=== PATIENT | female | born 1955 | race African-American/Black ===

== ENCOUNTER → 2020-12-17 13:26 | Outpatient (BNVA) | payer MEDICARE, MEDICAID, SELFPAY | PROVIDERS: PCP Family Medicine; Visit Provider Student in an Organized Health Care Education/Training Program | CPT/HCPCS: Q3014 ==

== ENCOUNTER → 2022-07-22 14:33 | Outpatient (BNVA) | payer OTHER, MEDICAID, SELFPAY | PROVIDERS: PCP Hospitalist; Visit Provider Student in an Organized Health Care Education/Training Program | DX: M79.7 Fibromyalgia (principal); E11.22 Type 2 diabetes mellitus with diabetic chronic kidney disease; N18.30 Chronic kidney disease, stage 3 unspecified; Z79.899 Other long term (current) drug therapy | CPT/HCPCS: 99202 ==

== ENCOUNTER 2022-08-11 08:46 | Outpatient (REF) | payer OTHER, SELFPAY ==
--- NOTE | ~2022-08-11 | FL_ITS ---
EXAMINATION: FL BARIUM SWALLOW CLINICAL INFORMATION: Dysphasia. COMPARISON: None available. TECHNIQUE: Barium swallow examination is performed using fluoroscopic evaluation in addition to multiple fluoroscopic spot views. The patient is imaged both upright and prone and using both thick and thin sulfate and half-inch diameter barium tablet along with effervescent granules. Fluoroscopy time: 2 minutes. DAP: 9.962 Gycm2. FINDINGS: No nasopharyngeal reflux or tracheal aspiration was present. There is cricopharyngeal hypertrophy present without evidence of Zenker's diverticulum. The esophagus demonstrated normal distensibility without persistent stricture. No mucosal abnormality was appreciated. No hiatal hernia was noted. No gastroesophageal reflux was seen during the study including with water siphon test. There was some hypomotility present. Clips from previous thyroid surgery present. FL/FL barium swallow IMPRESSION: Esophageal hypomotility. Cricopharyngeal hypertrophy. No hiatal hernia or gastroesophageal reflux elicited.
== END 2022-08-11 08:47 | disposition home or self-care (01) ==
LOC: HO.XRAY 08:46
PROVIDERS: PCP Hospitalist; Visit Provider Hospitalist
DX: R13.10 Dysphagia, unspecified (principal)
CPT/HCPCS: 74220

== ENCOUNTER 2022-09-14 08:08 | Day surgery (SDC) | payer OTHER, MEDICAID, SELFPAY ==
--- NOTE | 2022-09-13 13:57 | P.CONAN_ITS ---
HPI - Anesthesia Eval Consult details Narrative: 67yo F for Upper Endoscopy w/ balloon dilation and Colonoscopy PMFSH Active Problems Active Problems: All Active Problems (Updated 07/22/22 @ 15:13 by Carolann Metzger MD) Fibromyalgia (Acute) Past Medical History Medical History Calcaneal spur of both feet Chronic kidney disease, stage 3 Depression with anxiety Diabetes High cholesterol Migraines Morbid obesity Osteoarthritis of feet, bilateral Family History Family History Mother Osteoarthritis Rheumatoid arthritis Surgical History Surgical History History of appendectomy History of section Social History Social History Household Members: Children and Other Household Members Other:: grandson Alcohol intake: never Patient Tobacco Use Status: Never used Tobacco Use of substances other than those prescribed or required for medical reasons: No Are you DNR?: No Advance Directives: No Advance Directives Information Provided: Yes Current occupational status: employed Current occupation: [employer] Meds Allergies Allergy/AdvReac Type Severity Reaction Status Date / Time aspirin Allergy Intermediate rash Verified 09/14/22 08:50 gabapentin Allergy Intermediate rash Verified 09/14/22 08:50 oxycodone [Percodan] Allergy Intermediate rash Verified 09/14/22 08:50 sulfur Allergy Unknown rash Verified 09/14/22 08:50 Home Medications Medication Instructions Recorded Confirmed Last Taken Type topiramate 100 mg tablet (Topamax) 100 mg PO BEDTIME 01/05/21 09/14/22 Unknown History amitriptyline 50 mg tablet 50 mg PO DAILY 07/22/22 09/14/22 Unknown History cholecalciferol (vitamin D3) 25 25 mcg PO DAILY 07/22/22 09/14/22 Unknown History mcg (1,000 unit) tablet dulaglutide 0.75 mg/0.5 mL 0.75 mg subcut QWEEK 07/22/22 09/14/22 Unknown History subcutaneous pen injector (Trulicity) insulin glargine 100 unit/mL (3 40 unit subcut BID 07/22/22 09/14/22 Unknown History mL) subcutaneous pen (Basaglar KwikPen U-100 Insulin) potassium citrate 15 mEq (1,620 15 meq PO BID 07/22/22 09/14/22 Unknown History mg) tablet,extended release pravastatin 40 mg tablet 40 mg PO DAILY 07/22/22 09/14/22 Unknown History sumatriptan succinate 100 mg tablet 100 mg PO Q2-4H PRN Migraine 07/22/22 09/14/22 Unknown History Headache zolpidem 10 mg tablet (Ambien) 10 mg PO BEDTIME PRN Insomnia 07/22/22 09/14/22 Unknown History hydroxyzine HCl 25 mg tablet 25 mg PO BEDTIME PRN Anxiety 09/14/22 09/14/22 Unknown History topiramate 50 mg tablet 50 mg PO DAILY 09/14/22 09/14/22 Unknown History Exam Exam Date and Time: September 13, 2022 586 Assessment and Plan Assessment Anesthesia Assessment: Chart Reviewed
[2022-09-14 08:57] LABS: Prothrombin Time 11.6 SEC (10.0-13.1)
[2022-09-14 09:02] VITALS: BMI 39.7
[2022-09-14 09:07] LABS: Anion Gap 12 (12-20); Blood Urea Nitrogen 8 mg/dL (9-16); Calcium 9.8 mg/dL (8.4-10.2); Carbon Dioxide 23 mmol/L (22-29); Chloride 109 mmol/L (96-108); Estimated Glomerular Filt Rate 29; Glucose Fasting 102 mg/dL (60-99); Potassium 3.7 mmol/L (3.3-5.1); Sodium 140 mmol/L (135-145)
[2022-09-14 09:45] VITALS: BP 143/77; PULSE 84; RESP 15; TEMP 36.6; O2SAT 97
[2022-09-14 09:47] LABS: Glucose, Whole Blood 92 mg/dL (60-115)
[2022-09-14] MEDS: Lactated Ringers 1,000 ML 100 ML IVCONT (10:37)
[2022-09-14 11:38] VITALS: BP 98/58; PULSE 89; RESP 16; TEMP 36.2; O2SAT 100
--- NOTE | 2022-09-14 11:40 | P.BOP_ITS ---
Brief Operative Note Date of Service: 09/14/22 Pre-op diagnosis: Dysphagia, Screening Post-op diagnosis: other (GERD, Hiatal hernia, Diverticulosis) Procedure: EGD with Balloon Dilation 19 to 20mm and biopsies, Colonoscopy to the cecum Surgeon: Iban Damon Anesthesia: MAC Was an Billing Customer Service Representative used for this Procedure?: No Estimated blood loss (mL): 2.0 Pathology: other (A. EG Junction at 35cm B. Esophagus 20-25cm) Condition: stable Disposition: PACU
[2022-09-14 11:53] VITALS: BP 99/73; PULSE 77; RESP 14; TEMP 36.2; O2SAT 98
[2022-09-14 12:01] LABS: Glucose, Whole Blood 90 mg/dL (60-115)
[2022-09-14 12:07] VITALS: BP 131/80; PULSE 75; RESP 18; TEMP 36.1; O2SAT 98
--- NOTE | 2022-09-14 12:37 | OP_ITS ---
DATE OF SERVICE: 09/14/2022 SURGEON: Iban Damon MD INDICATIONS: The patient presents for evaluation of intermittent dysphagia and colorectal cancer screening. Full consent has been obtained from her for this, including risks of bleeding and perforation. PREOPERATIVE DIAGNOSIS: Dysphagia and colorectal cancer screening. POSTOPERATIVE DIAGNOSIS: PROCEDURE PERFORMED: Esophagogastroduodenoscopy with balloon dilation and biopsies, and colonoscopy to the cecum. ESTIMATED BLOOD LOSS: COMPLICATIONS: ANESTHESIA: Monitored anesthesia care. ASSISTANTS: SPECIMENS: POSTOPERATIVE DIAGNOSES: Dysphagia and colorectal cancer screening, hiatal hernia, gastroesophageal reflux, rule out eosinophilic esophagitis, diverticulosis, and internal hemorrhoids. DESCRIPTION OF PROCEDURE: The patient was placed in the left lateral decubitus position. The Olympus video gastroscope was passed in the posterior oropharynx and upper esophagus under direct vision. The scope was passed slowly to the distal esophagus. The gastroesophageal junction appeared at 35 cm. There were some slight areas of irregularity and some edema, but no evidence of any gross esophagitis, Aldridge's esophagus, stricture, nor ulceration. The scope entered the stomach easily. There was a small hiatal hernia. The scope was advanced to the pylorus and the duodenum was cannulated to the descending portion. The duodenum including the bulb appeared normal without mass or ulceration. The scope was withdrawn back to the stomach. The gastric antrum and body appeared normal with good peristalsis. The scope was retroflexed visualizing the proximal stomach carefully, which appeared normal, without any sign of mass or ulceration. The scope was straightened. The scope was withdrawn back in the esophagus. Given her symptomatology, I did use a [employer] incremental balloon to dilate the gastroesophageal junction from 19 mm to 20 mm at the recommended pressure for 60 seconds each. Post-dilation, there was some minimal heme noted but no obvious disruption of the gastroesophageal junction. Biopsies were also obtained at the gastroesophageal junction at 35 cm. Proximal to this, the esophageal mucosa appeared normal. The esophagus itself did appear to have some diminished peristalsis and some minimal amount of retained fluid. There was no evidence of any proximal esophageal disease. Biopsies were obtained between 20 and 25 cm. The scope was withdrawn from the patient. She was turned around for the colonoscopy. The digital rectal exam revealed no abnormalities. The Olympus video pediatric colonoscope was entered into the rectum and advanced easily to the cecum. Once in the cecum, I did identify normal-appearing cecal pouch with appendiceal orifice and a normal-appearing ileocecal valve. The entire cecum and ileocecal valve appeared normal. The scope was then slowly withdrawn assessing all mucosal surfaces carefully. Preparation was excellent after some irrigation and suctioning. I did not visualize any sign of polyps, colitis, or angiodysplasia. There was a mild amount of sigmoid diverticulosis. In the rectum, scope was retroflexed visualizing internal hemorrhoids, but no other pathology. The rectal mucosa appeared normal. Scope was straightened and withdrawn from the patient. She tolerated both procedures well, and was returned to recovery area in stable condition. IMPRESSION: 1. Hiatal hernia, gastroesophageal reflux. 2. Rule out eosinophilic esophagitis. 3. Status post balloon dilation of gastroesophageal junction. 4. Diverticulosis. 5. Internal hemorrhoids. PLAN: The results of the biopsies will be checked. Given her symptomatology, I shall start her on omeprazole 20 mg daily for at least a couple of months to see if that helps with her swallowing. Depending upon her clinical course, she may need further evaluation with an esophageal motility study. I would recommend a repeat colonoscopy in 10 years as well. She was advised to see me in the Fall for a followup visit. MD JOSR Rodriguez/DALILA / [id number] MTDD
== END 2022-09-14 12:50 | disposition home or self-care (01) ==
PROVIDERS: Nurse Practitioner; PCP Hospitalist; Visit Provider Internal Medicine
PROC: (CPT 45378; principal; 2022-09-14 09:30)
DX: Z12.11 Encounter for screening for malignant neoplasm of colon (principal); K57.30 Diverticulosis of large intestine without perforation or abscess without bleeding; K64.8 Other hemorrhoids; R13.19 Other dysphagia; K21.9 Gastro-esophageal reflux disease without esophagitis; K44.9 Diaphragmatic hernia without obstruction or gangrene; E78.00 Pure hypercholesterolemia, unspecified; M79.7 Fibromyalgia; F41.8 Other specified anxiety disorders; M19.072 Primary osteoarthritis, left ankle and foot; M19.071 Primary osteoarthritis, right ankle and foot; E11.22 Type 2 diabetes mellitus with diabetic chronic kidney disease; N18.30 Chronic kidney disease, stage 3 unspecified; Z79.4 Long term (current) use of insulin; Z79.899 Other long term (current) drug therapy; Z88.2 Allergy status to sulfonamides; Z88.8 Allergy status to other drugs, medicaments and biological substances
CPT/HCPCS: 45378; 43249; 43239; 36415; 80048; 82947; 85610; 88305; 88312; C1726

== ENCOUNTER 2023-05-12 09:22 | Outpatient (REF) | payer OTHER, SELFPAY ==
--- NOTE | ~2023-05-12 | FL_ITS ---
EXAMINATION: XR FLUOROSCOPY UPPER GI WITH AIR CLINICAL INFORMATION: Dysphagia epigastric pain COMPARISON: Barium swallow 08/2022 TECHNIQUE: Fluoroscopic air contrast upper GI examination was performed utilizing standard techniques with thin and thick barium and effervescent granules. Numerous spot images were obtained. FINDINGS: Lateral cine images of the oropharynx and hypopharynx demonstrate normal swallow mechanism with normal epiglottic inversion and soft palate elevation. No tracheal penetration, glottic or subglottic aspiration identified. No nasopharyngeal reflux present. Hypopharyngeal structures appear normal without evidence of mass or diverticulum. 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 Dual and single contrast images of the esophagus demonstrate normal caliber, contour, and mucosal pattern. No evidence of stricture, mass, or ulcerations identified. There is to and fro motion of the barium column with mild nonpropulsive tertiary contractions noted in the mid and distal esophagus. The patient swallowed the 13 mm barium tablet without any issue. The tablet passed into the stomach without any issue. No evidence of hiatus hernia identified. No significant gastroesophageal reflux was seen during the course of the examination and on reflux views. Dual contrast and single contrast images of the stomach demonstrated normal contour. The mucosal folds appear mildly thickened, likely due to gastritis. There is no evidence of mass, ulceration, or other abnormality. Contrast freely passed into the gastric antrum and duodenal bulb without delay. Single and air-contrast images of the duodenal bulb demonstrate no abnormality. The duodenal sweep has a normal appearance, course, and mucosal fold appearance. No malrotation. The imaged proximal jejunum has a normal fold pattern and caliber. Surgical clips noted in the thyroid region. FLUOROSCOPY TIME: 3 minutes 43 seconds Number of Spot Images: 8 Number of Cine: 14 DOSE AREA PRODUCT: [id number] FL/FL barium swallow IMPRESSION: 1. 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 2. Esophageal dysmotility. 3. Mildly thickened gastric mucosal folds, likely due to gastritis. 4. 13 mm barium tablet passed without delay into the stomach. This procedure was performed by Gino Good PA-C, and supervised by Dr. Gutierrez
== END 2023-05-12 09:23 | disposition home or self-care (01) ==
LOC: HO.XRAY 09:22
PROVIDERS: Visit Provider Internal Medicine
DX: R13.19 Other dysphagia (principal)
CPT/HCPCS: 74220

== ENCOUNTER → 2023-05-12 09:24 | Outpatient (BNV) | payer OTHER, SELFPAY | PROVIDERS: Visit Provider Radiology Diagnostic Radiology | DX: R13.10 Dysphagia, unspecified (principal); R10.13 Epigastric pain | CPT/HCPCS: 74221 ==

== ENCOUNTER 2024-05-21 09:27 | Outpatient (REF) | payer OTHER, MEDICAID, SELFPAY ==
--- OUTSIDE RECORDS SUMMARY | 2024-05-21 10:33 | XMS_ITS | Clinical Summary ---
Author Organization [facility] Address [address] [place] [phone] Phone Care Team Providers Care Supervisor [employer] Name Role Phone Diego Dacosta MD Primary Care Provider [phone] Allergies Active Allergy Reactions Criticality Noted Date Comments Aspirin Other (see comments) 07/23/2020 Medications DULoxetine HCl 60 MG Capsule Delayed Release Sprinkle Take 1 capsule by mouth 1 (one) time each day Active ZOLPIDEM TARTRATE ER PO Take 10 mg by mouth at night if needed Do not crush, chew, or split. Active albuterol HFA (PROVENTIL HFA;VENTOLIN HFA) 108 (90 Base) MCG/ACT inhaler Inhale 2 puffs every 6 (six) hours if needed for wheezing Active cycloSPORINE (RESTASIS) 0.05 % ophthalmic emulsion 1 drop 2 (two) times a day Active SUMAtriptan (IMITREX) 100 MG tablet Take 100 mg by mouth 1 (one) time if needed for migraine Active ondansetron (ZOFRAN) 8 MG tablet Take by mouth every 8 (eight) hours if needed for nausea or vomiting Active LORazepam (ATIVAN) 0.5 MG tablet Take 0.5 mg by mouth every 6 (six) hours if needed for anxiety Active pravastatin (PRAVACHOL) 40 MG tablet Take 1 tablet (40 mg total) by mouth 1 (one) time each day 30 tablet 2 Active Basaglar KwikPen 100 UNIT/ML injection 40 Units 1 (one) time each day 2 Active topiramate (TOPAMAX) 100 MG tablet TAKE 1 TABLET BY MOUTH IN THE MORNING AND 2 TABLETS AT BEDTIME 3 Active pantoprazole (PROTONIX) 20 MG EC tablet Take 1 tablet by mouth 1 (one) time each day 3 Active hydrOXYzine (ATARAX) 25 MG tablet Take 25 mg by mouth at night if needed 3 Active fluticasone (FLONASE) 50 MCG/ACT nasal spray INSTILL 1 SPRAY INTO EACH NOSTRIL EVERY DAY FOR 30 DAYS 3 Active Trulicity 0.75 MG/0.5ML solution pen-injector INJECT 1 PEN SUBCUTANEOUS WEEKLY DIRECTED FOR 30 DAYS 3 Active D-1000 Extra Strength 25 MCG (1000 UT) tablet Take 1,000 Units by mouth 1 (one) time each day 3 Active amLODIPine (NORVASC) 2.5 MG tablet Take 2.5 mg by mouth 1 (one) time each day For 30 days 3 Active amitriptyline (ELAVIL) 50 MG tablet Take 100 mg by mouth every night 3 Active hydroCHLOROthia zide 12.5 MG tablet TAKE 1 TABLET BY MOUTH ONCE DAILY 90 tablet 5 3 Active Potassium Citrate ER 15 MEQ (1620 MG) tablet controlled-rele ase TAKE 1 TABLET BY MOUTH 1 TIME EACH DAY. 90 tablet 1 5 Active Active Problems Problem Noted Date Diagnosed Date Stage 3a chronic kidney disease 07/23/2020 Hyperparathyroidism 07/23/2020 Renal stone 07/23/2020 Encounters Date Type Department Care Team Description 04/26/2024 Orders Only [facility] [address] [facility] [address] [place] [address] Dano Lucas MD Stage 3b chronic kidney disease (HCC) 04/11/2024 Refill [facility] [address] [place] [address] Dano Lucas MD 03/29/2024 9:15 AM EST Office Visit [facility] [address] [facility] [address] [place] [address] Dano Lucas MD Stage 3b chronic kidney disease (HCC) (Primary Dx) 03/29/2024 Orders Only [facility] [address] [facility] [address] [place] [phone] Dano Lucas MD 03/29/2024 Orders Only [facility] [address] [facility] [address] [place] [address] Dano Lucas MD Stage 3b chronic kidney disease (HCC) 03/01/2024 Orders Only [facility] [address] [facility] [address] [place] [phone] Dano Lucas MD Stage 3b chronic kidney disease (HCC) from Last 3 Months Family History Medical History Relation Comments Heart disease Mother Hypertension Mother Relation Status Comments Father Alive Mother Social History Tobacco Use Types Packs/Day Years Used Date Smoking Tobacco: Never Smokeless Tobacco: Never Tobacco Cessation:Counseling Given: Not Answered Alcohol Use Standard Drinks/Week Comments No 0 (1 standard drink = 0.6 oz pur e alcohol) Comments Unknown Sex and Gender Information Value Date Recorded Sex Assigned at Not on file Legal Sex Female 5:23 PM EST Gender Identity Not on file Sexual Orientation Not on file Last Filed Vital Signs Vital Sign Reading Time Taken Comments Blood Pressure 130/84 03/29/2024 8:59 AM EST Pulse 78 03/29/2024 8:59 AM EST Temperature - - Respiratory Rate - - Oxygen Saturation 98% 03/29/2024 8:59 AM EST Inhaled Oxygen Concentration - - Weight 90.9 kg (200 lb 6.4 oz) 03/29/2024 8:59 A M EST Height 152.4 cm (5') 07/04/2019 12:00 PM EDT Body Mass Index 39.14 07/04/2019 12:00 PM EDT Plan of Treatment Upcoming Encounters Date Type Department Care Team (Late st Contact Info) Description 09/24/2024 10:45 AM EDT Office Visit [facility] [address] [phone] Dano Lucas MD [address] [phone] Health Maintenance Due Date Last Done Comments Breast Cancer Screening 1955 Pneumococcal Vaccine: 65+ Years (1 of 2 - PCV) 963 Colorectal Cancer Screening: Annual FOBT 2005 Colorectal Cancer Screening: Colonoscopy 2005 Colorectal Cancer Screening: Sigmoidoscopy 2005 Hepatitis B Vaccine (1 of 3 - Risk 3-dose series) 04/2016 Influenza Vaccine (#1) 2023 Diabetes: Hemoglobin A1C 12/19/2023 05/21/2021 Diabetes: Ophthalmology Exam 12/19/2023 Diabetes: Pedal Pulse Checked 12/19/2023 Diabetes: Sensory Foot Exam 12/19/2023 Diabetes: Visual Foot Exam 12/19/2023 Procedures Procedure Name Priority Date/Time Associated Diagnosis Comments MAGNESIUM Routine 03/29/2024 10:15 AM EST PROTEIN / CREATININE RATIO, URINE Routine 03/29/2024 10:15 AM EST URINALYSIS WITH MICROSCOPIC Routine 03/29/2024 10:15 AM EST MICROSCOPIC EXAMINATION - DO NOT USE Routine 03/29/2024 10:15 AM EST EXT RESULT ENTRY Routine 05/21/2021 from Last 3 Months or Most Recently Relevant to Health Maintenance Results * (ABNORMAL) Microscopic Examination (03/29/2024 10:15 AM EST) WBC, Urine >30(A) 0 - 5 /hpf [facility] RBC, Urine None seen 0 - 2 /hpf [facility] Squamous Epithelial, Urine 0-10 0 - 10 /hpf [facility] Casts None seen None seen /lpf [facility] Bacteria, Urine Many(A) None seen/Few [facility] 03/29/2024 10:1 5 AM EST 03/29/2024 Dano Lucas MD LAB MICROBIOLOGY - GE NERAL ORDERABLES Final Result Performing Organization Address City/[facility]/ZIP Co de Phone Number [facility] [address] [place] [address] * Protein, Total, Random Urine w/Creatinine (Protein/Creat Ratio) (03/29/2024 10:15 AM EST) Pathologist [facility] Creatinine, Ur 241.6 Not Estab. mg/dL [facility] Protein, Ur 29.3 Not Estab. mg/dL [facility] Urine Protein/Creatin ine Ratio 121 0 - 200 mg/g creat [facility] 03/29/2024 10:1 5 AM EST 03/29/2024 Dano Lucas MD LAB URINE ORDERABLES Final Result Performing Organization Address City/[facility]/ZIP Co de Phone Number [facility] [address] [place] [address] * (ABNORMAL) Urinalysis with microscopic (03/29/2024 10:15 AM EST) Specific [place], Urine 1.021 1.005 - 1.030 [facility] pH Urine 5.5 5.0 - 7.5 [facility] Color, Urine Yellow Yellow [facility] [phone] Appearance Urine Cloudy(A) Clear [facility] [place] WBC Esterase Urine 3+(A) Negative [facility] [phone] Protein, Ur 1+(A) Negative/Tr luis [facility] Glucose, Ur Negative Negative [facility] Ketones, Urine Trace(A) Negative [facility] [place] [phone] Blood Urine Trace(A) Negative [facility] Bilirubin Urine Negative Negative [facility] [place] Urobilinogen Urine 0.2 0.2 - 1.0 mg/dL [facility] [phone] Nitrite, Urine Positive(A) Negative [facility] [place] Microscopic Examination See below: [facility] [phone] Comment:Microscopic was alize cated and was performed. 03/29/2024 10:1 5 AM EST 03/29/2024 Dano Lucas MD LAB URINE ORDERABLES Final Result Performing Organization Address City/[facility]/ZIP Co de Phone Number [facility] [place] [address] [place] [address] * Magnesium (03/29/2024 10:15 AM EST) Magnesium 1.7 1.6 - 2.3 mg/dL [facility] [place] 03/29/2024 10:1 5 AM EST 03/29/2024 Dano Lucas MD LAB BLOOD ORDERABLES Final Result Performing Organization Address City/[facility]/ZIP Co de Phone Number [facility] [address] [place] [address] * (ABNORMAL) EXT RESULT ENTRY (05/21/2021) ALT (SGPT) 9 U/L AST (SGOT) 12 U/L Hemoglobin A1C 8.2(A) 4.0 - 6.0 Triglycerides 138 40 - 160 Cholesterol 198 0 - 200 HDL 56 35 - 70 MG/DL LDL Calculated 114 0 - 160 mg/dL 05/21/2021 us Historical Provider LAB BLOOD ORDERABLES Yu l Result from Last 3 Months or Most Recently Relevant to Health Maintenance Care Teams Supervisor [employer] Relationship Specialty Start Date End Date Diego Dacosta MD [address] [place] [phone] PCP - General Internal Medicine 12/06/21
--- OUTSIDE RECORDS SUMMARY | 2024-05-21 10:33 | XMS_ITS ---
Author Organization [facility] Address [address] [place] [phone] Care Team Providers Care Product Manager Financial Services Name Role Phone DOREEN ANGELES Primary Care Provider Iban Hilliard [phone] ALLERGIES Allergen (clinical drug ingredient) Drug/Non Drug Allergy documented on EMR Reaction Allergy Type Onset Date Status Substance with sulfonamide structure and antibacterial mechanism of action (substance) Sulfa Antibiotics Unknown Drug Allergy Active prednisone Prednisone Unknown Drug Allergy Activ e aspirin Aspirin Unknown Drug Allergy Active REASON FOR VISIT Patient presents today for DYSPHAGIA MEDICATIONS Medication SIG (Take, Route, Frequency, Duration) Notes Start Date End Date Status Basaglar KwikPen 100 UNIT/ML INJECT 40 UNITS UNDER THE SKIN ONCE A DAY subcutaneous every day Active Omeprazole 20 MG TAKE 1 CAPSULE BY MO UTH EVERY MORNING. for 90 Active Folic Acid Active hydrOXYzine HCl 25 MG Oral for 90 Active SUMAtriptan Succinate 100 MG Oral for 30 Active D-1000 Extra Strength 25 MCG (1000 UT) TAKE 1 TABLET BY MOUTH EVERY DAY Oral for 90 Active Trulicity 0.75 MG/0.5ML DIRECTED SUBC UTANEOUS WEEKLY 30 DAYS Subcutaneous for 30 Active Amitriptyline HCl 50 MG Oral for 90 Active Topiramate 100 MG Oral for 90 Active Pravastatin Sodium 40 MG TAKE 1 TABLET B Y MOUTH EVERY DAY Oral for 90 Active Potassium Citrate ER 15 MEQ (1620 MG) Oral for 30 Active IMMUNIZATIONS Vaccine Route Administration Date Status Comme nts Influenza Unknown 08/23/2023 Refused SOCIAL HISTORY Tobacco Use: Social History Observation Description Date Details (start date - stop date) Never Smoker NA - NA Sex Assigned At : Social History Observation Description Sex Assigned At Unknown Tobacco Use/Smoking Question Answer Notes Patient is a nonsmoker Alcohol Screen Question Answer Notes Did you have a drink containing alcohol in the p ast year? No Points 0 Interpretation Negative VITAL SIGNS BMI 37.69 kg/m2 08/23/2023 Blood pressure systolic 000 mm Hg 08/23/19 24 Blood pressure diastolic 00 mm Hg 024 Height 61 in 08/23/2023 Temperature 98.4 degrees Fahrenheit 08/23/19 24 Weight 199 lb 8 oz lbs 08/23/2023 Encounters Encounter Location Date Provider Diagnosis [facility] [address] [place] [address] 08/23/2023 Iban Damon Screening for colon cancer Z12.11 and Esophageal dysphagia R13.19 ASSESSMENTS Encounter Date Diagnosis Assessment Notes Treatment Notes Treatment Clinical Notes 08/23/2023 Screening for colon cancer (ICD-10 - Z12.11) Repeat colonoscopy in 203208/23/2023 Esophageal dysphagia (ICD-10 - R13.19) Continue omeprazole 08/23/2023 Other You can add ernesto e daily Metamucil or other fiber to your daily regimen to see if that help with the BM's. PLAN OF TREATMENT Treatment Notes Assessment Notes Screening for colon cancer Repeat colono scopy in 2032 Esophageal dysphagia Continue omeprazole Other You can add some maximus ly Metamucil or other fiber to your daily regimen to see if that help with the BM's. Next Appt Details Follow Up: prn, Reason: Progress Notes * Examination Category Sub-Category Detail Notes General Examination GENERAL APPEARANCE: pleasant , well nourished, well developed, in no acute distress HEAD: EYES: sclera non-icteric EARS: NOSE: THROAT: NECK/THYROID: no cervical lymphade nopathy, neck supple HEART: S1, S2 normal CHEST: LUNGS: clear to auscultatio n bilaterally ABDOMEN: normal bowel sounds, no guarding or rigidity, no guarding or rigidity, no masses palpable, soft, nontender, nondistended NEUROLOGIC: alert and oriented SKIN: nonjaundiced, no spi augustine angiomata EXTREMITIES: no edema PERIPHERAL PULSES: BACK: BREASTS: MUSCULOSKELETAL: MALE GENITOURINARY: LYMPH NODES: RECTAL EXAM: FEMALE GENITOURINARY: ORAL CAVITY: mucosa moist
--- OUTSIDE RECORDS SUMMARY | 2024-05-21 10:33 | XMS_ITS | Encounter Summary ---
Author Organization [facility] Address [address] [facility] [address] [place] [address] Phone Care Team Providers Care Kosher Dietary Service Manager Name Role Phone Diego Dacosta MD Primary Care Provider [phone] Encounter Details Date Type Department Care Team (Late Contact Info) Description 04/26/2024 Orders Only [facility] [address] [facility] [address] [place] [address] Dano Lucas MD [facility] [address] Stage 3b chronic kidney disease (HCC) Social History Tobacco Use Types Packs/Day Years Used Date Smoking Tobacco: Never Smokeless Tobacco: Never Alcohol Use Standard Drinks/Week Comments No 0 (1 standard drink = 0.6 oz pur e alcohol) Comments Unknown Sex and Gender Information Value Date Recorded Sex Assigned at Not on file Legal Sex Female 5:23 PM EST Gender Identity Not on file Sexual Orientation Not on file documented as of this encounter Plan of Treatment Upcoming Encounters Date Type Department Care Team (Late st Contact Info) Description 09/24/2024 10:45 AM EDT Office Visit [facility] [address] [address] Dano Lucas MD [address] [address] documented as of this encounter Visit Diagnoses Diagnosis Stage 3b chronic kidney disease (HCC) documented in this encounter Care Teams Kosher Dietary Service Manager Relationship Specialty Start Date End Date Diego Dacosta MD [address] [place] [id number] PCP - General Internal Medicine 12/06/21 documented as of this encounter
--- OUTSIDE RECORDS SUMMARY | 2024-05-21 10:33 | XMS_ITS | Patient Health Record ---
Author Organization [facility] Address [address] [place] [phone] Care Team Providers Care Designer Writer Name Role Phone DOREEN ANGELES Primary Care Provider Iban Hilliard [phone] ALLERGIES Allergen (clinical drug ingredient) Drug/Non Drug Allergy documented on EMR Reaction Allergy Type Onset Date Status Substance with sulfonamide structure and antibacterial mechanism of action (substance) Sulfa Antibiotics Unknown Drug Allergy Active prednisone Prednisone Unknown Drug Allergy Activ e aspirin Aspirin Unknown Drug Allergy Active REASON FOR REFERRAL No Information MEDICATIONS Medication SIG (Take, Route, Frequency, Duration) Notes Start Date End Date Status Basaglar KwikPen 100 UNIT/ML INJECT 40 UNITS UNDER THE SKIN ONCE A DAY subcutaneous every day Active D-1000 Extra Strength 25 MCG (1000 UT) TAKE 1 TABLET BY MOUTH EVERY DAY Oral for 90 Active Omeprazole 20 MG TAKE 1 CAPSULE BY MO UTH EVERY MORNING for 90 Active Trulicity 0.75 MG/0.5ML DIRECTED SUBC UTANEOUS WEEKLY 30 DAYS Subcutaneous for 30 Active Folic Acid Active hydrOXYzine HCl 25 MG Oral for 90 Active SUMAtriptan Succinate 100 MG Oral for 30 Active Amitriptyline HCl 50 MG Oral for 90 Active Topiramate 100 MG Oral for 90 Active Potassium Citrate ER 15 MEQ (1620 MG) Oral for 30 Active Pravastatin Sodium 40 MG TAKE 1 TABLET B Y MOUTH EVERY DAY Oral for 90 Active IMMUNIZATIONS Vaccine Route Administration Date Status [...] ast year? No Points 0 Interpretation Negative PROBLEMS Problem Type ICD Code Onset Dates Problem Status W/U Status Risk SNOMED Code Notes Problem Esophageal dysphagia (R13.19) Active confirmed 21528707 Problem Screening for colon cancer (Z12.11) Active confirmed 696792952 Problem Diverticulosis of large intestine without perforation or abscess without bleeding (K57.30) Active confirmed Diverticul ar disease of colon (795029099) Problem Dysphagia (R13.10) Active confirmed Dys phagia (35651773) VITAL SIGNS Temperature 98.4 degrees Fahrenheit 08/23/2023 Blood pressure diastolic 00 mm Hg 08/23/2023 Height 61 in 08/23/2023 Blood pressure systolic 000 mm Hg 08/23/2023 Weight 199 lb 8 oz lbs 08/23/2023 BMI 37.69 kg/m2 08/23/2023 Encounters Encounter Location Date Provider Diagnosis [facility] [address] [place] [address] 08/23/2023 Iban Damon Screening for colon cancer [...] help with the BM's. PLAN OF TREATMENT Pending Test Test Name Order Date XR BARIUM SWALLOW-ESOPHAGUS 02/21/2023 [place] barium swallow 05/12/2023 Future Test Test Name Order Date UPPER GI ENDOSCOPY [place] DILATION OF ESOPH 07/19/2022 COLONOSCOPY 07/19/2022 Insurance Providers Payer Name Payer Address Payer Phone Subscriber Number Group Number Insured Name Patient Relationship to Insured Coverage Start Date Coverage End Date [facility] [address] [address] [place] [address] [phone] [id number] AURELIA GARCIA Self - patient is the insured MEDICAL (GENERAL) HISTORY Medical History History ICD Code IDDM CKD STAGE III--sees Dr. Christian Reports a negative colonoscopy at age 51 Denies CA,CVA,Lung disease Migraines Hyperlipidemia Kidney stones Uterine fibroids Negative screening colonoscopy in September Dysphagia-upper endoscopy in September of 2022 revealed a small hiatal hernia and some subjective decrease in esophageal peristalsis with retention of fluid, but no evidence of any significant esophagitis, Aldridge's esophagus, esophageal stricture, nor eosinophilic esophagitis; the gastroesophageal junction was dilated up to a 19 mm balloon and she was started on omeprazole at that time. Surgical History Surgery Date(Month/Year) x 2 Appendectomy Parathyroid
--- OUTSIDE RECORDS SUMMARY | 2024-05-21 10:34 | XMS_ITS | Clinical Summary ---
Author Organization [facility] Address [address] [place] [address] Care Team Providers Care Scale Balancer Name Role Phone Unavailable Primary Care Provider Unavailabl e Social History Tobacco Use Types Packs/Day Years Used Date Smoking Tobacco: Never Assessed Comments Unknown Sex and Gender Information Value Date Recorded Sex Assigned at Not on file Legal Sex Female 1:22 AM EST Gender Identity Not on file Sexual Orientation Not on file Obstetrics History Plan of Treatment Health Maintenance Due Date Last Done Comments Breast Cancer Screening 1955 DTaP,Tdap,and Td Vaccines (1 - Tdap) 06/09/1963 Pneumococcal Vaccine: 50+ Ye ars (1 of 1 - PCV) 2006 Zoster Vaccines (1 of 2) 2006 Colorectal Cancer Screening: Colonoscopy 03/23/2022 Depression Screening 03/23/2022 Falls Risk Assessment 03/23/2022 Hepatitis C Screening 03/23/2022 Osteoporosis Screening (Bone Density Screening) 03/23/2022 Social Influencers of Health Screening 03/23/2022 COVID-19 Vaccine ( - 2023-2 5 season) 2023 Influenza Vaccine (#1) 2023 RSV Immunization Patients 60 + Years Old (1 - 1-dose 75+ series) 06/09/2031 HIB Vaccines Aged Out No longer eligi ble based on patient's age to complete this topic HPV Vaccines Aged Out No longer eligi ble based on patient's age to complete this topic Hepatitis A Vaccines Aged Out No long er eligible based on patient's age to complete this topic Hepatitis B Vaccines Aged Out No long er eligible based on patient's age to complete this topic IPV Vaccines Aged Out No longer eligi ble based on patient's age to complete this topic MMR Vaccines Aged Out No longer eligi ble based on patient's age to complete this topic Meningococcal ACWY Vaccine Aged Out N o longer eligible based on patient's age to complete this topic Meningococcal B Vacine Aged Out No lo nger eligible based on patient's age to complete this topic RSV Immunization Patients Un augustine 20 months Aged Out No longer eligible b ased on patient's age to complete this topic Varicella Vaccines Aged Out No longer eligible based on patient's age to complete this topic
--- OUTSIDE RECORDS SUMMARY | 2024-05-21 10:34 | XMS_ITS ---
Author Organization [facility] Address [address] [place] [address] Care Team Providers Care Security Control Assessor Name Role Phone SHITALEkta LOGAN Primary Care Provider Iban Hilliard Unavailable [phone] Encounters Encounter Location Date Provider Diagnosis [facility] [address] [place] [phone] 04/10/2023 Iban Damon PLAN OF TREATMENT No Information
--- OUTSIDE RECORDS SUMMARY | 2024-05-21 10:34 | XMS_ITS ---
Author Organization [facility] Address [address] [place] [phone] Care Team Providers Care Hedis Nurse Name Role Phone SHITALEkta DOREEN Primary Care Provider Iban Hilliard [facility] [phone] Encounters Encounter Location Date Provider Diagnosis [facility] [address] [place] [phone] 02/21/2023 Iban Damon PLAN OF TREATMENT No Information
--- OUTSIDE RECORDS SUMMARY | 2024-05-21 10:34 | XMS_ITS | Clinical Summary ---
Author Organization [facility] Address [address] [place] [address] Care Team Providers Care Credit Professional Name Role Phone Unavailable Primary Care Provider Unavailabl e Social History Tobacco Use Types Packs/Day Years Used Date Smoking Tobacco: Never Assessed Sex and Gender Information Value Date Recorded Sex Assigned at Not on file Gender Identity Not on file Sexual Orientation Not on file Plan of Treatment Not on file
[2024-05-21 12:23] LABS: Erythrocyte Sedimentation Rate 20 MM/HR (0-20)
[2024-05-21 12:59] LABS: C Reactive Protein 0.32 mg/dL (< or = 0.50)
[2024-05-23 02:49] LABS: Lyme Abs Screen <0.90 index
== END 2024-05-21 09:28 | disposition home or self-care (01) ==
LOC: HO.LAB 09:27
PROVIDERS: PCP Hospitalist; Visit Provider Registered Nurse
DX: G43.909 Migraine, unspecified, not intractable, without status migrainosus (principal)
CPT/HCPCS: 36415; 85652; 86140; 86617; 86618

== ENCOUNTER 2024-10-07 12:38 | Outpatient (REF) | payer OTHER, MEDICAID, SELFPAY ==
--- NOTE | ~2024-10-07 | CT_ITS ---
EXAMINATION: CT HEAD WITHOUT CONTRAST CLINICAL INFORMATION: Syncope COMPARISON: MRI dated August 21, 2017 TECHNIQUE: Contiguous axial imaging was performed from the skull base to vertex without intravenous administration of contrast. This CT examination was performed using dose optimization techniques as appropriate, variously including the following: *Automated exposure control *Adjustment of mA and/or kV according to patient size (this includes techniques or standardized protocols for targeted exams where dose is matched to indication/reason for exam; i.e. extremities or head) *Use of iterative reconstruction technique DLP: 733 mGY*cm FINDINGS: There is no acute ischemic change. There is no intracranial hemorrhage. There is no mass-effect or midline shift. Basal cisterns and ventricles are within normal limits for age/cerebral volume. Orbits are symmetrical and unremarkable. Paranasal sinuses and mastoid air cells are pneumatized. There are no bony abnormalities. CT/CT head/brain wo IV con IMPRESSION: No acute intracranial abnormality. Electronically signed by: Sander Ring MD 10/07/2024 02:03 PM EDT
--- OUTSIDE RECORDS SUMMARY | 2024-10-07 13:04 | XMS_ITS | Patient Health Record ---
Author Organization [facility] Address [address] [place] [address] Care Team Providers Care Provider Relations Rep Name Role Phone DOREEN ANGELES Primary Care Provider Bassam Barakat Unavailable [phone] Allergies Allergen (clinical drug ingredient) Drug/Non Drug Allergy documented on EMR Reaction Allergy Type Onset Date Status aspirin Aspirin Unknown Drug Allergy Active gabapentin Gabapentin Unknown Drug Allergy Activ e oxycodone Oxycodone Unknown Drug Allergy Active Penicillin yeast infection Drug Allergy Active Substance with sulfonamide structure and antibacterial mechanism of action (substance) Sulfa Antibiotics Unknown Drug Allergy Active Results Component Value Reference Range Notes Urine Culture, Routine-[id number] Reviewed date:07/11/2024 03:53:28 PM Interpretation: Performing Lab:[facility], [address], [place], Phone - [phone], Director - [facility] Notes/Report: Clinical Information:SRC: Clinical Information:SRC: Urine Culture, Routine Final report Result 1 Escherichia coli Cefazolin with an CARL <=16 predicts susceptibility to the oral agents cefaclor, cefdinir, cefpodoxime, cefprozil, cefuroxime, cephalexin, and loracarbef when used for therapy of uncomplicated urinary tract infections due to E. coli, Klebsiella pneumoniae, and Proteus mirabilis. Greater than 100,000 colony forming units per mL Antimicrobial Susceptibility S = Susceptible; I = Intermediate; R = Resistant P = Positive; N = Negative MICS are expressed in micrograms per mL Antibiotic RSLT#1 RSLT#2 RSLT#3 RSLT#4 Amoxicillin/Clavulanic Acid S Ampicillin S Cefazolin S Cefepime S Cefoxitin S Cefpodoxime S Ceftriaxone S Ciprofloxacin S Ertapenem S Gentamicin S Levofloxacin S Meropenem S Nitrofurantoin S Piperacillin/Tazobactam S Tetracycline S Tobramycin S Trimethoprim/Sulfa S Comp. Metabolic Panel ([id number] Reviewed date:08/05/2024 02:26:41 PM Interpretation: Performing Lab:[facility], [address] [place] [address], Phone - [phone], Director - MDJodry Notes/Report: Glucose 212 70-99 mg/dL BUN 15 8-27 mg/dL Creatinine 1.64 0.57-1.00 mg/dL eGFR 34 >59 mL/min/1.73 BUN/Creatinine Ratio 9 12-28 Sodium 140 134-144 mmol/L Potassium 4.3 3.5-5.2 mmol/L Chloride 103 96-106 mmol/L Carbon Dioxide, Total 21 20-29 mmol/L Calcium 9.3 8.7-10.3 mg/dL Protein, Total 7.0 6.0-8.5 g/dL Albumin 4.0 3.9-4.9 g/dL Globulin, Total 3.0 1.5-4.5 g/dL Bilirubin, Total <0.2 0.0-1.2 mg/dL Alkaline Phosphatase 124 44-121 IU/L AST (SGOT) 21 0-40 IU/L ALT (SGPT) 18 0-32 IU/L Lipid Panel-[id number] Reviewed date:08/05/2024 02:25:46 PM Interpretation: Performing Lab:[facility], [address] [place] [address], Phone - [phone], Director - MDJodry Notes/Report: Cholesterol, Total 247 100-199 mg/dL Triglycerides 213 0-149 mg/dL HDL Cholesterol 48 >39 mg/dL VLDL Cholesterol [place] 39 5-40 mg/dL LDL Chol Calc (NIH) 160 0-99 mg/dL Albumin/Creatinine Ratio,Uri ne-[id number] Reviewed date:08/05/2024 02:26:06 PM Interpretation: Performing Lab:[facility], [address] [place] [address], Phone - [phone], Director - MDJodry Notes/Report: Creatinine, Urine 199.2 Not Estab. mg/dL Albumin, Urine 11.6 Not Estab. ug/mL Alb/Creat Ratio 6 0-29 mg/g creat Normal: 0 - 29 Moderately increased: 30 - 300 Severely increased: >300 Vitamin D, 84-[id number] Reviewed date:08/05/2024 02:25:18 PM Interpretation: Performing Lab:[facility] [place], [address], [place], Phone - [phone], Director - Fl[place] Notes/Report: Vitamin D, 25-Hydroxy 22.4 30.0-100.0 ng/mL Vitamin D deficiency has been defined by the [place] of [employer] and an Endocrine Society practice guideline as a level of serum 25-OH vitamin D less than 20 ng/mL (1,2). The Endocrine Society went on to further define vitamin D insufficiency as a level between 21 and 29 ng/mL (2). 1. IOM ([place] of [employer]). 2010. Dietary reference intakes for calcium and D. Painting [place]: The National Academies Press. 2. Gina MF, Hafsa THAKKAR, Tori LUCAS, et al. Evaluation, treatment, and prevention of vitamin D deficiency: an Endocrine Society clinical practice guideline. JCEM. 2010; 96(7):1911-30. Hemoglobin [id number] Reviewed date:08/05/2024 02:25:32 PM Interpretation: Performing Lab:[facility] [place], [address], [place], Phone - [phone], Director - Fl[place] Notes/Report: Hemoglobin A1c 10.1 4.8-5.6 % . Prediabetes: 5.7 - 6.4 Diabetes: >6.4 Glycemic control for adults with diabetes: <7.0 Reason For Referral Reason left shoulder pain Diagnosis 1 Type 2 diabetes tory itus with other diabetic kidney complication (E11.29) Referral Organization [facility] Referring Provider First Name DOREEN Referring Provider Last Name [facility] Referring Provider Speciality Internal edicine Referred Provider Specialty Orthopedic S urgery Referral Priority Routine Reason left shoulder pain Diagnosis 1 Type 2 diabetes troy itus with other diabetic kidney complication (E11.29) Referral Organization [facility] Referring Provider First Name DOREEN Referring Provider Last Name [facility] Referring Provider Speciality Internal edicine Referred Provider Specialty Physical The rapist Referral Priority Routine Reason repeat falls pleas e evaluate and treat Diagnosis 1 Repeated falls (R29. 6) Referral Organization [facility] Referring Provider First Name DOREEN Referring Provider Last Name [facility] Referring Provider Speciality Internal M edicine Referred Provider Specialty Physical The rapist General Notes Referral was faxed t o [facility]. Please contact patient for scheduling., Evonne Carrasco 07/10/2024 11:37:36 AM > Referral Priority Routine Reason C-scope Please karmen luate and treat Diagnosis 1 Encounter for screen ing for malignant neoplasm of colon (Z12.11) Referral Organization [facility] Referring Provider First Name Bassam Referring Provider Last Name Yuval Referred Provider Specialty Gastroentero logy General Notes Please call the [facility] ent to schedule the appointment, [facility] Gastroenterology - [phone], Krista Breen 07/31/2024 03:53:19 PM > Referral Priority Routine Reason Evaluation and manag ement Diagnosis 1 Major depressive dis order, recurrent, mild (F33.0) Diagnosis 2 Generalized anxiety disorder (F41.1) Referral Organization [facility] Referring Provider First Name Bassam Referring Provider Last Name Yuval Referred Provider Specialty Mental healt h counseling General Notes Referral faxed to N - Pt needs to call [phone] for scheduling. Referral Priority Routine Reason Evaluation and manag ement Diagnosis 1 Obstructive sleep ap lyn (adult) (pediatric) (G47.33) Referral Organization [facility] Referring Provider First Name Bassam Referring Provider Last Name Yuval Referred Provider Specialty Sleep Medici ne General Notes Referral sent to [facility] ([address] [place] [address] ) - Office will call patient for scheduling. Referral Priority Routine Medications Medication SIG (Take, Route, Frequency, Duration) Notes Start Date End Date Status Potassium Citrate ER 15 MEQ (1620 MG) TAKE 1 TABLET BY MOUTH WITH MEALS; Duration: 30 Not-Taking Vitamin C 500 MG TAKE 1 TABLET BY MOUTH EVERY DAY FOR 30 DAYS; Duration: 30 Not-Taking SUMAtriptan Succinate 100 MG 1 tablet as needed, may take second dose at least 2 hours after first dose up to 2 tablets per day as needed Orally Once a day; Duration: 30 days Active D-1000 Extra Strength 25 MCG (1000 UT) TAKE 1 TABLET BY MOUTH EVERY DAY; Duration: 90 Active Myrbetriq 25 MG 1 tablet Orally Once a day SCRIP CLERK Not-Taking Topiramate 100 MG 1 tablet Orally Twic e a day; Duration: 30 day(s) Neurology: Not-Taking cycloSPORINE 0.05 % 1 drop into affected eye Ophthalmic Twice a day Not-Taking Amitriptyline HCl 50 MG 1 tablet at bedtime Orally Once a day; Duration: 30 day(s) Neurology: Not-Taking Sertraline HCl 50 MG 1 tablet Orally Onc e a day; Duration: 30 days Active HumaLOG KwikPen 100 UNIT/ML INJECT 2 UNITS 3 TIMES A DAY : FOR 150-199, 4 UNITS FOR 200-249,6 UNITS FOR 250-299,8 UNITS FOR 300-349, 10 UNITS FOR 350-399, 12 UNITS FOR 400 AND CALL MD Subcutaneous Subcutaneous; Duration: 30 days 08/09/2024 Active Macrobid 100 MG 1 capsule with food Orally every 12 hrs; Duration: 5 days 07/09/2024 Not-Taking Zolpidem Tartrate 10 MG 1 tablet at bedtime as needed Orally Once a day Neurology: Not-Taking Cephalexin 500 MG TAKE 1 CAPSULE BY MOUTH EVERY 12 HOURS FOR 7 DAYS; Duration: 7 Active BD Pen Needle Rosibel 2nd Gen 32G X 4 MM USE 1 PEN NEEDLE TO INJECT INSULIN DAILY; Duration: Active Acetaminophen 8 Hour 650 MG 2 tablets as needed Orally every 8 hrs; Duration: 30 days 07/30/2024 Active LORazepam 0.5 MG 1 tablet 1/2 hour before flying Orally Once a day; Duration: 5 days 07/30/2024 Active FreeStyle Sae 14 Day Sensor - use to check blood sugar change every 14 days; Duration: 84 days Active Albuterol Sulfate HFA 108 (90 Base) MCG/ACT INHALE 2 PUFFS INTO THE LUNGS TWICE DAILY; Duration: 90 Not-Taking Tradjenta 5 MG 1 tablet Orally Once a day; Duration: 30 days 03/27/2024 Active Sertraline HCl 25 MG TAKE 1 TABLET BY MOUTH EVERY DAY FOR 30 DAYS; Duration: 90 Active amLODIPine Besylate 2.5 MG TAKE 1 TABLET BY MOUTH EVERY DAY FOR 30 DAYS; Duration: 90 Not-Taking Fluticasone Propionate 50 MCG/ACT INSTILL 1 SPRAY INTO EACH NOSTRIL EVERY DAY FOR 30 DAYS; Duration: 90 Active Pravastatin Sodium 40 MG TAKE 1 TABLET BY MOUTH EVERY DAY; Duration: 90 Not-Taking Pantoprazole Sodium 20 MG TAKE 1 TABLET BY MOUTH 30 MINUTES BEFORE DINNER; Duration: 90 Not-Taking Basaglar KwikPen 100 UNIT/ML INJECT 50 UNITS UNDER THE SKIN Subcutaneous once a day; Duration: 30 days Active hydrOXYzine HCl 25 MG TAKE 1 TABLET BY MOUTH EVERY DAY AT BEDTIME NEEDED FOR 30 DAYS; Duration: 90 Not-Taking NovoLOG FlexPen 100 UNIT/ML INJECT 2 UNITS 3 TIMES A DAY : FOR 150-199, 4 UNITS FOR 200-249,6 UNITS FOR 250-299,8 UNITS FOR 300-349, 10 UNITS FOR 350-399, 12 UNITS FOR 400 AND CALL MD Subcutaneous; Duration: 30 days Active Rosuvastatin Calcium 20 MG 1 tablet Orally Once a day; Duration: 30 days 08/07/2024 Active FreeStyle Sae 2 Nelson - USE TO CHECK BLOOD SUGAR 4 TIMES DAILY; Duration: 30 Not-Taking Mirtazapine 7.5 MG TAKE 2 TABLETS BY MOUTH ONCE DAILY AT BEDTIME; Duration: 90 Active Immunizations Vaccine Route Administration Date Status Comme nts COVID 19 Pfizer Unknown 05/25/2020 Administered COVID 19 Pfizer Unknown 06/16/2020 Administered COVID 19 Pfizer Unknown 08/25/2020 Administered COVID 19 Pfizer Unknown 03/19/2021 Administered Social History Tobacco Use: Social History Observation Description Date Details (start date - stop date) Never Smoker NA - NA Tobacco Use/Smoking Question Answer Notes Are you a nonsmoker Alcohol Screen (Audit-C) Question Answer Notes Did you have a drink containing alcohol in the p ast year? No Points 0 Interpretation Negative Section Notes: non smoker no alcohol non smoker no alcohol Problems Problem Type SNOMED Code ICD Code Onset Dates Problem Status W/U Status Risk Notes Problem Diabetic neuropathy (272584691) Diabetes mellitus due to underlying condition with diabetic neuropathy, unspecified (E08.40) Active confirmed Problem Diabetic renal disease (268660530) 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.29) Active confirmed Problem Morbid obesity (disorder) (112189354) Morbid (severe) obesity due to excess calories (E66.01) Active confirmed Problem Mixed hyperlipidemia (400959978) Mixed hyperlipidemia (E78.2) Active confirmed Problem Mild recurrent major depression (79162490) Major depressive disorder, recurrent, mild (F33.0) Active confirmed Problem Generalized anxiety disorder (07854232) Generalized anxiety disorder (F41.1) Active confirmed Problem Chronic intractable migraine without aura (305464001078908) Chronic migraine without aura, intractable, without status migrainosus (G43.719) Active confirmed Problem Insomnia (734196305) Insomnia, unspecified (G47.00) Active confirmed Problem Obstructive sleep apnea syndrome (disorder) (28595696) Obstructive sleep apnea (adult) (pediatric) (G47.33) Active confirmed Problem Polyneuropathy (31904036) Polyneuropathy, unspecified (G62.9) Active confirmed Problem Fibromyalgia (295503672) Fibromyalgia (M79.7) Active confirmed Problem Neurogenic dysfunction of the urinary bladder (283200307) Neuromuscular dysfunction of bladder, unspecified (N31.9) Active confirmed Problem Abnormal uterine bleeding (44732037631103) Abnormal uterine and vaginal bleeding, unspecified (N93.9) Active confirmed Problem Dysphagia (11793342) Dysphagia, unspecified (R13.10) Active confirmed Problem Recurrent falls (534808993) Repeated falls (R29.6) Active confirmed Problem 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) Type 2 diabetes mellitus with other diabetic ophthalmic complication (E11.39) Active confirmed Problem Essential hypertension (64412791) Essential (primary) hypertension (I10) Active confirmed Problem Carpal tunnel syndrome (81105050) Carpal tunnel syndrome, bilateral upper limbs (G56.03) Active confirmed Problem Chronic kidney disease stage 3 (disorder) (647372614) Chronic kidney disease, stage 3 unspecified (N18.30) Active confirmed Problem Age-related osteoporosis (370632678) Age related osteoporosis, unspecified pathological fracture presence (M81.0) Active confirmed Vital Signs Heart Rate 99 /min 08/07/2024 Temperature 97.5 degrees Fahrenheit 08/07/2024 Blood pressure diastolic 82 mm Hg 08/07/2024 Oximetry 98 % 08/07/2024 Height 60 in 08/07/2024 Blood pressure systolic 124 mm Hg 08/07/2024 Weight 204.7 lbs 08/07/2024 BMI 39.97 kg/m2 08/07/2024 Encounters Encounter Location Date Provider Diagnosis [facility] [address] [address] 12/20/2023 LOGAN GUL Mixed hyperlipidemia E78.2 ; Diabetes mellitus due to underlying condition with diabetic neuropathy, unspecified E08.40 ; Major depressive disorder, recurrent, mild F33.0 and Morbid (severe) obesity due to excess calories E66.[address] [place] [address] 03/27/2024 DOREEN ANGELES Type 2 diabetes mellitus with other diabetic kidney complication E11.29 ; Mixed hyperlipidemia E78.2 ; Diabetes mellitus due to underlying condition with diabetic neuropathy, unspecified E08.40 ; Major depressive disorder, recurrent, mild F33.0 and Morbid (severe) obesity due to excess calories E66.[address] [place] [address] 07/09/2024 DOREEN ANGELES Urgency of urination R39.15 ; Diabetes mellitus due to underlying condition with diabetic neuropathy, unspecified E08.40 ; Type 2 diabetes mellitus with other diabetic kidney complication E11.29 ; Mixed hyperlipidemia E78.2 ; Major depressive disorder, recurrent, mild F33.0 and Morbid (severe) obesity due to excess calories E66.[address] [place] [address] 07/30/2024 Yuvaladeveronica Damontiara Diabetes mellitus du e to underlying condition with diabetic neuropathy, unspecified E08.40 ; Annual visit for general adult medical examination without abnormal findings Z00.00 ; Type 2 diabetes mellitus with other diabetic kidney complication E11.29 ; Chronic kidney disease, stage 3 unspecified N18.30 ; Mixed hyperlipidemia E78.2 ; Major depressive disorder, recurrent, mild F33.0 ; Morbid (severe) obesity due to excess calories E66.01 ; Obstructive sleep apnea (adult) (pediatric) G47.33 ; Insomnia, unspecified G47.00 ; Generalized anxiety disorder F41.1 ; Pain in left shoulder M25.512 ; Pain in unspecified knee M25.569 ; Encounter for screening for malignant neoplasm of colon Z12.11 and Encounter for screening mammogram for malignant neoplasm of breast Z12.[address] [place] [address] 08/07/2024 DOREEN ANGELES Mixed hyperlipidemia E78.2 ; Diabetes mellitus due to underlying condition with diabetic neuropathy, unspecified E08.40 ; Type 2 diabetes mellitus with other diabetic kidney complication E11.29 ; Chronic kidney disease, stage 3 unspecified N18.30 ; Major depressive disorder, recurrent, mild F33.0 ; Morbid (severe) obesity due to excess calories E66.01 ; Obstructive sleep apnea (adult) (pediatric) G47.33 and Generalized anxiety disorder F41.1 [facility] [address] [place] [address] 07/09/2024 [facility] Urinary tract infection, site not specified N39.0 [facility] [address] [place] [address] 08/02/2024 [facility] [address] [place] [address] 08/05/2024 [facility] [address] [place] [address] 04/07/2024 [facility] [address] [place] [address] 05/01/2024 [facility] [address] [place] [address] 06/04/2024 [facility] [address] [place] [address] 06/05/2024 [facility] [address] [place] [address] 06/13/2024 [facility] [address] [place] [address] 06/26/2024 [facility] [address] [place] [address] 06/27/2024 [facility] [address] [place] [address] 06/28/2024 [facility] [address] [place] [address] 07/06/2024 [facility] [address] [facility] [place] [address] 07/08/2024 [facility] [address] [place] [address] 07/11/2024 [facility] [address] [place] [address] 07/13/[address] [facility] [address] [place] [address] 07/15/[address] [facility] [address] [facility] [place] [address] 07/31/2024 [facility] [address] [facility] [place] [address] 07/31/2024 [facility] [address] [facility] [place] [address] 08/07/2024 [facility] [address] [facility] [place] [address] 08/08/[address] [facility] [address] [facility] [place] [address] 08/09/[address] [facility] [address] [facility] [place] [address] 08/09/[address] [facility] [address] [facility] [place] [address] 08/13/[address] [facility] [address] [facility] [place] [address] 08/17/[address] [facility] [address] [facility] [place] [address] 08/17/[address] [facility] [address] [facility] [place] [address] 08/17/[address] [facility] [address] [facility] [place] [address] 08/19/2024 [facility] [address] [place] [address] 09/27/2024 [facility] [address] [place] [address] 09/30/2024 [facility] [address] [facility] [address] [place] [address] 10/01/2024 [facility] Assessments Encounter Date Diagnosis (ICD Code) Assessment Notes Treatment Notes Treatment Clinical Notes Section Notes 03/27/2024 Diabetes mellitus due to underlying condition with diabetic neuropathy, unspecified (ICD-10 - E08.40) Celeste is 68 years old lady with DM type 2 with nephropathy, chronic kidney disease stage IIIb and she sees Dr. Christian, generalized anxiety disorder, migraine headaches, acid reflux, hypertension is here for follow-up. She is homeless at this point and she is living with one of her friend. Plan is as follows DM type II with nephropathy. Her last hemoglobin A1c was 8.8 and her goal is less than 7. She is currently on long-acting insulin 45 units along with trulicity 1.5 mg every weekly and sliding scale. Repeat hemoglobin A1c, dietary changes. She is seen health policy nurse in the past 1 year. Foot care discussed with the patient. Hypertension/hyper lipidemia. Blood pressure reasonably controlled on amlodipine 2.5 mg daily and she is on pravastatin 40 mg daily. Chronic kidney disease stage IIIb. She follows up with Dr. Christian and she is not in volume overload. Obstructive sleep apnea. She uses CPAP machine and no daytime sleepiness Acid reflux. Continue Protonix 20 mg daily and diet restrictions discussed Neurogenic bladder. She is on Myrbetriq 25 mg 1 tablet daily Morbid obesity. Advised dietary changes, low-calorie food and increase physical activity. Generalized anxiety disorder. She needs to pillows for lorazepam because she does not have an appointment with neurologist who prescribed Ambien to her. Screening blood work ordered 03/27/2024 Type 2 diabetes mellitus with other diabetic kidney complication (ICD-10 - E11.29) Celeste is 68 years old lady with DM type 2 with nephropathy, chronic kidney disease stage IIIb and she sees Dr. Christian, generalized anxiety disorder, migraine headaches, acid reflux, hypertension is here for follow-up. She is homeless at this point and she is living with one of her friend. Plan is as follows DM type II with nephropathy. Her last hemoglobin A1c was 8.8 and her goal is less than 7. She is currently on long-acting insulin 45 units along with trulicity 1.5 mg every weekly and sliding scale. Repeat hemoglobin A1c, dietary changes. She is seen health policy nurse in the past 1 year. Foot care discussed with the patient. Hypertension/hyper lipidemia. Blood pressure reasonably controlled on amlodipine 2.5 mg daily and she is on pravastatin 40 mg daily. Chronic kidney disease stage IIIb. She follows up with Dr. Christian and she is not in volume overload. Obstructive sleep apnea. She uses CPAP machine and no daytime sleepiness Acid reflux. Continue Protonix 20 mg daily and diet restrictions discussed Neurogenic bladder. She is on Myrbetriq 25 mg 1 tablet daily Morbid obesity. Advised dietary changes, low-calorie food and increase physical activity. Generalized anxiety disorder. She needs to pillows for lorazepam because she does not have an appointment with neurologist who prescribed Ambien to her. Screening blood work ordered 03/27/2024 Mixed hyperlipidemia (ICD-10 - E78.2) Celeste is 68 years old lady with DM type 2 with nephropathy, chronic kidney disease stage IIIb and she sees Dr. Christian, generalized anxiety disorder, migraine headaches, acid reflux, hypertension is here for follow-up. She is homeless at this point and she is living with one of her friend. Plan is as follows DM type II with nephropathy. Her last hemoglobin A1c was 8.8 and her goal is less than 7. She is currently on long-acting insulin 45 units along with trulicity 1.5 mg every weekly and sliding scale. Repeat hemoglobin A1c, dietary changes. She is seen health policy nurse in the past 1 year. Foot care discussed with the patient. Hypertension/hyper lipidemia. Blood pressure reasonably controlled on amlodipine 2.5 mg daily and she is on pravastatin 40 mg daily. Chronic kidney disease stage IIIb. She follows up with Dr. Christian and she is not in volume overload. Obstructive sleep apnea. She uses CPAP machine and no daytime sleepiness Acid reflux. Continue Protonix 20 mg daily and diet restrictions discussed Neurogenic bladder. She is on Myrbetriq 25 mg 1 tablet daily Morbid obesity. Advised dietary changes, low-calorie food and increase physical activity. Generalized anxiety disorder. She needs to pillows for lorazepam because she does not have an appointment with neurologist who prescribed Ambien to her. Screening blood work ordered 07/09/2024 Diabetes mellitus due to underlying condition with diabetic neuropathy, unspecified (ICD-10 - E08.40) Celeste is 68 years old lady with DM type 2 with nephropathy, chronic kidney disease stage IIIb and she sees Dr. Christian, generalized anxiety disorder, migraine headaches, acid reflux, hypertension is here for follow-up. She complains of increased urinary frequency and urgency Plan is as follows. Urinary tract infection. Urine dip positive for nitrates and leukocytes. Started on Macrobid 100 mg 1 tablet twice a day, appropriate hydration and will send urine out for culture sensitivity. DM type II with nephropathy. Her last hemoglobin A1c was 8.8 and her goal is less than 7. She is currently on long-acting insulin 45 units along with and sliding scale and Tradjenta 5 mg daily. Repeat hemoglobin A1c, dietary changes. She is seen health policy nurse in the past 1 year. Foot care discussed with the patient. Hypertension/hyper lipidemia. Blood pressure reasonably controlled on amlodipine 2.5 mg daily and she is on pravastatin 40 mg daily. Chronic kidney disease stage IIIb. She follows up with Dr. Christian and she is not in volume overload. Obstructive sleep apnea. She uses CPAP machine and no daytime sleepiness Acid reflux. Continue Protonix 20 mg daily and diet restrictions discussed Neurogenic bladder. She is on Myrbetriq 25 mg 1 tablet daily Morbid obesity. Advised dietary changes, low-calorie food and increase physical activity. Generalized anxiety disorder. She needs to pillows for lorazepam because she does not have an appointment with neurologist who prescribed Ambien to her. Screening blood work ordered 07/09/2024 Urgency of urination (ICD-10 - R39.15) Celeste is 68 years old lady with DM type 2 with nephropathy, chronic kidney disease stage IIIb and she sees Dr. Christian, generalized anxiety disorder, migraine headaches, acid reflux, hypertension is here for follow-up. She complains of increased urinary frequency and urgency Plan is as follows. Urinary tract infection. Urine dip positive for nitrates and leukocytes. Started on Macrobid 100 mg 1 tablet twice a day, appropriate hydration and will send urine out for culture sensitivity. DM type II with nephropathy. Her last hemoglobin A1c was 8.8 and her goal is less than 7. She is currently on long-acting insulin 45 units along with and sliding scale and Tradjenta 5 mg daily. Repeat hemoglobin A1c, dietary changes. She is seen health policy nurse in the past 1 year. Foot care discussed with the patient. Hypertension/hyper lipidemia. Blood pressure reasonably controlled on amlodipine 2.5 mg daily and she is on pravastatin 40 mg daily. Chronic kidney disease stage IIIb. She follows up with Dr. Christian and she is not in volume overload. Obstructive sleep apnea. She uses CPAP machine and no daytime sleepiness Acid reflux. Continue Protonix 20 mg daily and diet restrictions discussed Neurogenic bladder. She is on Myrbetriq 25 mg 1 tablet daily Morbid obesity. Advised dietary changes, low-calorie food and increase physical activity. Generalized anxiety disorder. She needs to pillows for lorazepam because she does not have an appointment with neurologist who prescribed Ambien to her. Screening blood work ordered 07/09/2024 Urinary tract infection, site not specified (ICD-10 - N39.0) 07/30/2024 Diabetes mellitus due to underlying condition with diabetic neuropathy, unspecified (ICD-10 - E08.40) Celeste is 69 years old lady with DM type 2 with nephropathy, chronic kidney disease stage IIIb and she sees Dr. 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 Her last hemoglobin A1c was 8.8 and her goal is less than 7. She is currently on long-acting insulin 45 units along with Tradjenta 5mg and sliding scale. Repeat hemoglobin A1c, dietary changes. She is seen health policy nurse in the past 1 year. Foot care discussed with the patient. EKG is performed in the office today with heart rate of 102 bpm, sinus tachycardia. No ST elevation or depression. No bundle branch block. Hypertension.Blood pressure reasonably controlled, Not on medications. continue with diet modification. Hyperlipidemia. She is not on pravastatin. It is recommended for her to be on statin medication given that she does have history of type 2 diabetes. Will check lipid panel Chronic kidney disease stage IIIb. She follows up with [facility] and she is not in volume overload. Avoid nephrotxins and NSAIDs Obstructive sleep apnea. She uses CPAP machine and no daytime sleepiness Morbid obesity. Advised dietary changes, low-calorie food and increase physical activity. Generalized anxiety disorder. She needs to pillows for lorazepam, she is not on AMbien as per patient it affects her vision. Discussed Mirtazpine with Side effects. She agrees with the plan we will start on low dose and titrate up. Pain in the left shoulder and the left knee. She admits to mechanical fall recently. It is tender to palpate along the left shoulder and left knee. Limited range of motion is noted. No erythema, edema are noted. We will get an x-ray of both joints. Start patient on Tylenol to be taken as needed for pain. And based on the results of the x-ray will further manage Increased sertraline to 50mg. Denies SI. Declines therapy at this point. Follow-up in 4 weeks. Vaccination. Declines Shingles. Declines Flu. Pneumo vaccine recommended Screening for colon cancer- Referred to GI for c-scope Mammogram: Ordered Mammogram HCP SON SHANNON [phone]. MOLST form discussed. Screening blood work ordered General concerns have been discussed I have rendered the services for this patient under direct supervision of Dr. Angeles, who did not see the patient but was available upon request 07/30/2024 Annual visit for general adult medical examination without abnormal findings (ICD-10 - Z00.00) Celeste is 69 years old lady with DM type 2 with nephropathy, chronic kidney disease stage IIIb and she sees Dr. 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 Her last hemoglobin A1c was 8.8 and her goal is less than 7. She is currently on long-acting insulin 45 units along with Tradjenta 5mg and sliding scale. Repeat hemoglobin A1c, dietary changes. She is seen health policy nurse in the past 1 year. Foot care discussed with the patient. EKG is performed in the office today with heart rate of 102 bpm, sinus tachycardia. No ST elevation or depression. No bundle branch block. Hypertension.Blood pressure reasonably controlled, Not on medications. continue with diet modification. Hyperlipidemia. She is not on pravastatin. It is recommended for her to be on statin medication given that she does have history of type 2 diabetes. Will check lipid panel Chronic kidney disease stage IIIb. She follows up with [facility] nephrolog[facility] and she is not in volume overload. Avoid nephrotxins and NSAIDs Obstructive sleep apnea. She uses CPAP machine and no daytime sleepiness Morbid obesity. Advised dietary changes, low-calorie food and increase physical activity. Generalized anxiety disorder. She needs to pillows for lorazepam, she is not on AMbien as per patient it affects her vision. Discussed Mirtazpine with Side effects. She agrees with the plan we will start on low dose and titrate up. Pain in the left shoulder and the left knee. She admits to mechanical fall recently. It is tender to palpate along the left shoulder and left knee. Limited range of motion is noted. No erythema, edema are noted. We will get an x-ray of both joints. Start patient on Tylenol to be taken as needed for pain. And based on the results of the x-ray will further manage Increased sertraline to 50mg. Denies SI. Declines therapy at this point. Follow-up in 4 weeks. Vaccination. Declines Shingles. Declines Flu. Pneumo vaccine recommended Screening for colon cancer- Referred to GI for c-scope Mammogram: Ordered Mammogram HCP SON SHANNNO [phone]. MOLST form discussed. Screening blood work ordered General concerns have been discussed I have rendered the services for this patient under direct supervision of Dr. Angeles, who did not see the patient but was available upon request 08/07/2024 Diabetes mellitus due to underlying condition with diabetic neuropathy, unspecified (ICD-10 - E08.40) Celeste is 69 years old lady with DM type 2 with nephropathy, chronic kidney disease stage IIIb and she sees Dr. 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 Her last hemoglobin A1c was 10.1 and is slowly creeping up and she was out of her insulin for almost 2 weeks.. increase long-acting insulin 50 units along with Tradjenta 5mg and sliding scale. Repeat hemoglobin A1c, dietary changes. She is seen health policy nurse in the past 1 year. Foot care discussed with the patient. Hypertension.Blood pressure reasonably controlled, Not on medications. continue with diet modification. Hyperlipidemia. She is not on pravastatin. It is recommended for her to be on statin medication given that she does have history of type 2 diabetes. Will check lipid panel Chronic kidney disease stage IIIb. She follows up with [facility] nephrolog[facility] and she is not in volume overload. Avoid nephrotxins and NSAIDs Obstructive sleep apnea. She uses CPAP machine and no daytime sleepiness Morbid obesity. Advised dietary changes, low-calorie food and increase physical activity. Generalized anxiety disorder/insomnia. She is currently on sertraline 75 mg daily and her symptoms are well controlled. She is off Ambien and she is on mirtazapine 7.5 mg. Vaccination. Declines Shingles. Declines Flu. Pneumo vaccine recommended Screening for colon cancer- Referred to GI for c-scope Mammogram: Ordered Mammogram HCP SON SHANNON [phone]. MOLST form discussed. Screening blood work reviewed General concerns have been discussed I have rendered the services for this patient under direct supervision of Dr. Angeles, who did not see the patient but was available upon request 08/07/2024 Mixed hyperlipidemia (ICD-10 - E78.2) Celeste is 69 years old lady with DM type 2 with nephropathy, chronic kidney disease stage IIIb and she sees Dr. 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 Her last hemoglobin A1c was 10.1 and is slowly creeping up and she was out of her insulin for almost 2 weeks.. increase long-acting insulin 50 units along with Tradjenta 5mg and sliding scale. Repeat hemoglobin A1c, dietary changes. She is seen health policy nurse in the past 1 year. Foot care discussed with the patient. Hypertension.Blood pressure reasonably controlled, Not on medications. continue with diet modification. Hyperlipidemia. She is not on pravastatin. It is recommended for her to be on statin medication given that she does have history of type 2 diabetes. Will check lipid panel Chronic kidney disease stage IIIb. She follows up with [facility] neph[facility] and she is not in volume overload. Avoid nephrotxins and NSAIDs Obstructive sleep apnea. She uses CPAP machine and no daytime sleepiness Morbid obesity. Advised dietary changes, low-calorie food and increase physical activity. Generalized anxiety disorder/insomnia. She is currently on sertraline 75 mg daily and her symptoms are well controlled. She is off Ambien and she is on mirtazapine 7.5 mg. Vaccination. Declines Shingles. Declines Flu. Pneumo vaccine recommended Screening for colon cancer- Referred to GI for c-scope Mammogram: Ordered Mammogram HCP SON SHANNON [phone]. MOLST form discussed. Screening blood work reviewed General concerns have been discussed I have rendered the services for this patient under direct supervision of Dr. Angeles, who did not see the patient but was available upon request 12/20/2023 Diabetes mellitus due to underlying condition with diabetic neuropathy, unspecified (ICD-10 - E08.40) Celeste is 68 years old lady with DM type 2 with nephropathy, chronic kidney disease stage IIIb and she sees Dr. Christian, generalized anxiety disorder, migraine headaches, acid reflux, hypertension is here for follow-up. Plan is as follows DM type II with nephropathy. Her last hemoglobin A1c was 8.8 and her goal is less than 7. She is currently on long-acting insulin 45 units along with trulicity 1.5 mg every weekly and sliding scale. Repeat hemoglobin A1c, dietary changes. She is seen health policy nurse in the past 1 year. Foot care discussed with the patient. Hypertension/hyper lipidemia. Blood pressure reasonably controlled on amlodipine 2.5 mg daily and she is on pravastatin 40 mg daily. Chronic kidney disease stage IIIb. She follows up with Dr. Christian and she is not in volume overload. Obstructive sleep apnea. She uses CPAP machine and no daytime sleepiness Acid reflux. Continue Protonix 20 mg daily and diet restrictions discussed Neurogenic bladder. She is on Myrbetriq 25 mg 1 tablet daily Morbid obesity. Advised dietary changes, low-calorie food and increase physical activity. Tachycardia. Patient mentioned that she is anxious. She monitors her heart rate at home and it is usually within normal limits. She will check her resting heart rate and she will inform us. Screening blood work ordered 12/20/2023 Mixed hyperlipidemia (ICD-10 - E78.2) Celeste is 68 years old lady with DM type 2 with nephropathy, chronic kidney disease stage IIIb and she sees Dr. Christian, generalized anxiety disorder, migraine headaches, acid reflux, hypertension is here for follow-up. Plan is as follows DM type II with nephropathy. Her last hemoglobin A1c was 8.8 and her goal is less than 7. She is currently on long-acting insulin 45 units along with trulicity 1.5 mg every weekly and sliding scale. Repeat hemoglobin A1c, dietary changes. She is seen health policy nurse in the past 1 year. Foot care discussed with the patient. Hypertension/hyper lipidemia. Blood pressure reasonably controlled on amlodipine 2.5 mg daily and she is on pravastatin 40 mg daily. Chronic kidney disease stage IIIb. She follows up with Dr. Christian and she is not in volume overload. Obstructive sleep apnea. She uses CPAP machine and no daytime sleepiness Acid reflux. Continue Protonix 20 mg daily and diet restrictions discussed Neurogenic bladder. She is on Myrbetriq 25 mg 1 tablet daily Morbid obesity. Advised dietary changes, low-calorie food and increase physical activity. Tachycardia. Patient mentioned that she is anxious. She monitors her heart rate at home and it is usually within normal limits. She will check her resting heart rate and she will inform us. Screening blood work ordered 12/20/2023 Major depressive disorder, recurrent, mild (ICD-10 - F33.0) Celeste is 68 years old lady with DM type 2 with nephropathy, chronic kidney disease stage IIIb and she sees Dr. Christian, generalized anxiety disorder, migraine headaches, acid reflux, hypertension is here for follow-up. Plan is as follows DM type II with nephropathy. Her last hemoglobin A1c was 8.8 and her goal is less than 7. She is currently on long-acting insulin 45 units along with trulicity 1.5 mg every weekly and sliding scale. Repeat hemoglobin A1c, dietary changes. She is seen health policy nurse in the past 1 year. Foot care discussed with the patient. Hypertension/hyper lipidemia. Blood pressure reasonably controlled on amlodipine 2.5 mg daily and she is on pravastatin 40 mg daily. Chronic kidney disease stage IIIb. She follows up with Dr. Christian and she is not in volume overload. Obstructive sleep apnea. She uses CPAP machine and no daytime sleepiness Acid reflux. Continue Protonix 20 mg daily and diet restrictions discussed Neurogenic bladder. She is on Myrbetriq 25 mg 1 tablet daily Morbid obesity. Advised dietary changes, low-calorie food and increase physical activity. Tachycardia. Patient mentioned that she is anxious. She monitors her heart rate at home and it is usually within normal limits. She will check her resting heart rate and she will inform us. Screening blood work ordered 08/07/2024 Type 2 diabetes mellitus with other diabetic kidney complication (ICD-10 - E11.29) Celeste is 69 years old lady with DM type 2 with nephropathy, chronic kidney disease stage IIIb and she sees Dr. 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 Her last hemoglobin A1c was 10.1 and is slowly creeping up and she was out of her insulin for almost 2 weeks.. increase long-acting insulin 50 units along with Tradjenta 5mg and sliding scale. Repeat hemoglobin A1c, dietary changes. She is seen health policy nurse in the past 1 year. Foot care discussed with the patient. Hypertension.Blood pressure reasonably controlled, Not on medications. continue with diet modification. Hyperlipidemia. She is not on pravastatin. It is recommended for her to be on statin medication given that she does have history of type 2 diabetes. Will check lipid panel Chronic kidney disease stage IIIb. She follows up with [facility] and she is not in volume overload. Avoid nephrotxins and NSAIDs Obstructive sleep apnea. She uses CPAP machine and no daytime sleepiness Morbid obesity. Advised dietary changes, low-calorie food and increase physical activity. Generalized anxiety disorder/insomnia. She is currently on sertraline 75 mg daily and her symptoms are well controlled. She is off Ambien and she is on mirtazapine 7.5 mg. Vaccination. Declines Shingles. Declines Flu. Pneumo vaccine recommended Screening for colon cancer- Referred to GI for c-scope Mammogram: Ordered Mammogram HCP SON SHANNON [phone]. MOLST form discussed. Screening blood work reviewed General concerns have been discussed I have rendered the services for this patient under direct supervision of Dr. Angeles, who did not see the patient but was available upon request 07/30/2024 Type 2 diabetes mellitus with other diabetic kidney complication (ICD-10 - E11.29) Celeste is 69 years old lady with DM type 2 with nephropathy, chronic kidney disease stage IIIb and she sees Dr. 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 Her last hemoglobin A1c was 8.8 and her goal is less than 7. She is currently on long-acting insulin 45 units along with Tradjenta 5mg and sliding scale. Repeat hemoglobin A1c, dietary changes. She is seen health policy nurse in the past 1 year. Foot care discussed with the patient. EKG is performed in the office today with heart rate of 102 bpm, sinus tachycardia. No ST elevation or depression. No bundle branch block. Hypertension.Blood pressure reasonably controlled, Not on medications. continue with diet modification. Hyperlipidemia. She is not on pravastatin. It is recommended for her to be on statin medication given that she does have history of type 2 diabetes. Will check lipid panel Chronic kidney disease stage IIIb. She follows up with [facility] neph[facility] and she is not in volume overload. Avoid nephrotxins and NSAIDs Obstructive sleep apnea. She uses CPAP machine and no daytime sleepiness Morbid obesity. Advised dietary changes, low-calorie food and increase physical activity. Generalized anxiety disorder. She needs to pillows for lorazepam, she is not on AMbien as per patient it affects her vision. Discussed Mirtazpine with Side effects. She agrees with the plan we will start on low dose and titrate up. Pain in the left shoulder and the left knee. She admits to mechanical fall recently. It is tender to palpate along the left shoulder and left knee. Limited range of motion is noted. No erythema, edema are noted. We will get an x-ray of both joints. Start patient on Tylenol to be taken as needed for pain. And based on the results of the x-ray will further manage Increased sertraline to 50mg. Denies SI. Declines therapy at this point. Follow-up in 4 weeks. Vaccination. Declines Shingles. Declines Flu. Pneumo vaccine recommended Screening for colon cancer- Referred to GI for c-scope Mammogram: Ordered Mammogram HCP SON SHANNON [phone]. MOLST form discussed. Screening blood work ordered General concerns have been discussed I have rendered the services for this patient under direct supervision of Dr. Angeles, who did not see the patient but was available upon request 07/09/2024 Type 2 diabetes mellitus with other diabetic kidney complication (ICD-10 - E11.29) Celeste is 68 years old lady with DM type 2 with nephropathy, chronic kidney disease stage IIIb and she sees Dr. Christian, generalized anxiety disorder, migraine headaches, acid reflux, hypertension is here for follow-up. She complains of increased urinary frequency and urgency Plan is as follows. Urinary tract infection. Urine dip positive for nitrates and leukocytes. Started on Macrobid 100 mg 1 tablet twice a day, appropriate hydration and will send urine out for culture sensitivity. DM type II with nephropathy. Her last hemoglobin A1c was 8.8 and her goal is less than 7. She is currently on long-acting insulin 45 units along with and sliding scale and Tradjenta 5 mg daily. Repeat hemoglobin A1c, dietary changes. She is seen health policy nurse in the past 1 year. Foot care discussed with the patient. Hypertension/hyper lipidemia. Blood pressure reasonably controlled on amlodipine 2.5 mg daily and she is on pravastatin 40 mg daily. Chronic kidney disease stage IIIb. She follows up with Dr. Christian and she is not in volume overload. Obstructive sleep apnea. She uses CPAP machine and no daytime sleepiness Acid reflux. Continue Protonix 20 mg daily and diet restrictions discussed Neurogenic bladder. She is on Myrbetriq 25 mg 1 tablet daily Morbid obesity. Advised dietary changes, low-calorie food and increase physical activity. Generalized anxiety disorder. She needs to pillows for lorazepam because she does not have an appointment with neurologist who prescribed Ambien to her. Screening blood work ordered 03/27/2024 Major depressive disorder, recurrent, mild (ICD-10 - F33.0) Celeste is 68 years old lady with DM type 2 with nephropathy, chronic kidney disease stage IIIb and she sees Dr. Christian, generalized anxiety disorder, migraine headaches, acid reflux, hypertension is here for follow-up. She is homeless at this point and she is living with one of her friend. Plan is as follows DM type II with nephropathy. Her last hemoglobin A1c was 8.8 and her goal is less than 7. She is currently on long-acting insulin 45 units along with trulicity 1.5 mg every weekly and sliding scale. Repeat hemoglobin A1c, dietary changes. She is seen health policy nurse in the past 1 year. Foot care discussed with the patient. Hypertension/hyper lipidemia. Blood pressure reasonably controlled on amlodipine 2.5 mg daily and she is on pravastatin 40 mg daily. Chronic kidney disease stage IIIb. She follows up with Dr. Christian and she is not in volume overload. Obstructive sleep apnea. She uses CPAP machine and no daytime sleepiness Acid reflux. Continue Protonix 20 mg daily and diet restrictions discussed Neurogenic bladder. She is on Myrbetriq 25 mg 1 tablet daily Morbid obesity. Advised dietary changes, low-calorie food and increase physical activity. Generalized anxiety disorder. She needs to pillows for lorazepam because she does not have an appointment with neurologist who prescribed Ambien to her. Screening blood work ordered 03/27/2024 Morbid (severe) obesity due to excess calories (ICD-10 - E66.01) Celeste is 68 years old lady with DM type 2 with nephropathy, chronic kidney disease stage IIIb and she sees Dr. Christian, generalized anxiety disorder, migraine headaches, acid reflux, hypertension is here for follow-up. She is homeless at this point and she is living with one of her friend. Plan is as follows DM type II with nephropathy. Her last hemoglobin A1c was 8.8 and her goal is less than 7. She is currently on long-acting insulin 45 units along with trulicity 1.5 mg every weekly and sliding scale. Repeat hemoglobin A1c, dietary changes. She is seen health policy nurse in the past 1 year. Foot care discussed with the patient. Hypertension/hyper lipidemia. Blood pressure reasonably controlled on amlodipine 2.5 mg daily and she is on pravastatin 40 mg daily. Chronic kidney disease stage IIIb. She follows up with Dr. Christian and she is not in volume overload. Obstructive sleep apnea. She uses CPAP machine and no daytime sleepiness Acid reflux. Continue Protonix 20 mg daily and diet restrictions discussed Neurogenic bladder. She is on Myrbetriq 25 mg 1 tablet daily Morbid obesity. Advised dietary changes, low-calorie food and increase physical activity. Generalized anxiety disorder. She needs to pillows for lorazepam because she does not have an appointment with neurologist who prescribed Ambien to her. Screening blood work ordered 07/09/2024 Mixed hyperlipidemia (ICD-10 - E78.2) Celeste is 68 years old lady with DM type 2 with nephropathy, chronic kidney disease stage IIIb and she sees Dr. Christian, generalized anxiety disorder, migraine headaches, acid reflux, hypertension is here for follow-up. She complains of increased urinary frequency and urgency Plan is as follows. Urinary tract infection. Urine dip positive for nitrates and leukocytes. Started on Macrobid 100 mg 1 tablet twice a day, appropriate hydration and will send urine out for culture sensitivity. DM type II with nephropathy. Her last hemoglobin A1c was 8.8 and her goal is less than 7. She is currently on long-acting insulin 45 units along with and sliding scale and Tradjenta 5 mg daily. Repeat hemoglobin A1c, dietary changes. She is seen health policy nurse in the past 1 year. Foot care discussed with the patient. Hypertension/hyper lipidemia. Blood pressure reasonably controlled on amlodipine 2.5 mg daily and she is on pravastatin 40 mg daily. Chronic kidney disease stage IIIb. She follows up with Dr. Christian and she is not in volume overload. Obstructive sleep apnea. She uses CPAP machine and no daytime sleepiness Acid reflux. Continue Protonix 20 mg daily and diet restrictions discussed Neurogenic bladder. She is on Myrbetriq 25 mg 1 tablet daily Morbid obesity. Advised dietary changes, low-calorie food and increase physical activity. Generalized anxiety disorder. She needs to pillows for lorazepam because she does not have an appointment with neurologist who prescribed Ambien to her. Screening blood work ordered 08/07/2024 Chronic kidney disease, stage 3 unspecified (ICD-10 - N18.30) Celeste is 69 years old lady with DM type 2 with nephropathy, chronic kidney disease stage IIIb and she sees Dr. 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 Her last hemoglobin A1c was 10.1 and is slowly creeping up and she was out of her insulin for almost 2 weeks.. increase long-acting insulin 50 units along with Tradjenta 5mg and sliding scale. Repeat hemoglobin A1c, dietary changes. She is seen health policy nurse in the past 1 year. Foot care discussed with the patient. Hypertension.Blood pressure reasonably controlled, Not on medications. continue with diet modification. Hyperlipidemia. She is not on pravastatin. It is recommended for her to be on statin medication given that she does have history of type 2 diabetes. Will check lipid panel Chronic kidney disease stage IIIb. She follows up with [facility] and she is not in volume overload. Avoid nephrotxins and NSAIDs Obstructive sleep apnea. She uses CPAP machine and no daytime sleepiness Morbid obesity. Advised dietary changes, low-calorie food and increase physical activity. Generalized anxiety disorder/insomnia. She is currently on sertraline 75 mg daily and her symptoms are well controlled. She is off Ambien and she is on mirtazapine 7.5 mg. Vaccination. Declines Shingles. Declines Flu. Pneumo vaccine recommended Screening for colon cancer- Referred to GI for c-scope Mammogram: Ordered Mammogram HCP SON SHANNON [phone]. MOLST form discussed. Screening blood work reviewed General concerns have been discussed I have rendered the services for this patient under direct supervision of Dr. Angeles, who did not see the patient but was available upon request 07/30/2024 Chronic kidney disease, stage 3 unspecified (ICD-10 - N18.30) Celeste is 69 years old lady with DM type 2 with nephropathy, chronic kidney disease stage IIIb and she sees Dr. 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 Her last hemoglobin A1c was 8.8 and her goal is less than 7. She is currently on long-acting insulin 45 units along with Tradjenta 5mg and sliding scale. Repeat hemoglobin A1c, dietary changes. She is seen health policy nurse in the past 1 year. Foot care discussed with the patient. EKG is performed in the office today with heart rate of 102 bpm, sinus tachycardia. No ST elevation or depression. No bundle branch block. Hypertension.Blood pressure reasonably controlled, Not on medications. continue with diet modification. Hyperlipidemia. She is not on pravastatin. It is recommended for her to be on statin medication given that she does have history of type 2 diabetes. Will check lipid panel Chronic kidney disease stage IIIb. She follows up with [facility] and she is not in volume overload. Avoid nephrotxins and NSAIDs Obstructive sleep apnea. She uses CPAP machine and no daytime sleepiness Morbid obesity. Advised dietary changes, low-calorie food and increase physical activity. Generalized anxiety disorder. She needs to pillows for lorazepam, she is not on AMbien as per patient it affects her vision. Discussed Mirtazpine with Side effects. She agrees with the plan we will start on low dose and titrate up. Pain in the left shoulder and the left knee. She admits to mechanical fall recently. It is tender to palpate along the left shoulder and left knee. Limited range of motion is noted. No erythema, edema are noted. We will get an x-ray of both joints. Start patient on Tylenol to be taken as needed for pain. And based on the results of the x-ray will further manage Increased sertraline to 50mg. Denies SI. Declines therapy at this point. Follow-up in 4 weeks. Vaccination. Declines Shingles. Declines Flu. Pneumo vaccine recommended Screening for colon cancer- Referred to GI for c-scope Mammogram: Ordered Mammogram HCP SON SHANNON [phone]. MOLST form discussed. Screening blood work ordered General concerns have been discussed I have rendered the services for this patient under direct supervision of Dr. Angeles, who did not see the patient but was available upon request 12/20/2023 Morbid (severe) obesity due to excess calories (ICD-10 - E66.01) Celeste is 68 years old lady with DM type 2 with nephropathy, chronic kidney disease stage IIIb and she sees Dr. Christian, generalized anxiety disorder, migraine headaches, acid reflux, hypertension is here for follow-up. Plan is as follows DM type II with nephropathy. Her last hemoglobin A1c was 8.8 and her goal is less than 7. She is currently on long-acting insulin 45 units along with trulicity 1.5 mg every weekly and sliding scale. Repeat hemoglobin A1c, dietary changes. She is seen health policy nurse in the past 1 year. Foot care discussed with the patient. Hypertension/hyper lipidemia. Blood pressure reasonably controlled on amlodipine 2.5 mg daily and she is on pravastatin 40 mg daily. Chronic kidney disease stage IIIb. She follows up with Dr. Christian and she is not in volume overload. Obstructive sleep apnea. She uses CPAP machine and no daytime sleepiness Acid reflux. Continue Protonix 20 mg daily and diet restrictions discussed Neurogenic bladder. She is on Myrbetriq 25 mg 1 tablet daily Morbid obesity. Advised dietary changes, low-calorie food and increase physical activity. Tachycardia. Patient mentioned that she is anxious. She monitors her heart rate at home and it is usually within normal limits. She will check her resting heart rate and she will inform us. Screening blood work ordered 07/30/2024 Mixed hyperlipidemia (ICD-10 - E78.2) Celeste is 69 years old lady with DM type 2 with nephropathy, chronic kidney disease stage IIIb and she sees Dr. 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 Her last hemoglobin A1c was 8.8 and her goal is less than 7. She is currently on long-acting insulin 45 units along with Tradjenta 5mg and sliding scale. Repeat hemoglobin A1c, dietary changes. She is seen health policy nurse in the past 1 year. Foot care discussed with the patient. EKG is performed in the office today with heart rate of 102 bpm, sinus tachycardia. No ST elevation or depression. No bundle branch block. Hypertension.Blood pressure reasonably controlled, Not on medications. continue with diet modification. Hyperlipidemia. She is not on pravastatin. It is recommended for her to be on statin medication given that she does have history of type 2 diabetes. Will check lipid panel Chronic kidney disease stage IIIb. She follows up with [facility] nephrolog[facility] and she is not in volume overload. Avoid nephrotxins and NSAIDs Obstructive sleep apnea. She uses CPAP machine and no daytime sleepiness Morbid obesity. Advised dietary changes, low-calorie food and increase physical activity. Generalized anxiety disorder. She needs to pillows for lorazepam, she is not on AMbien as per patient it affects her vision. Discussed Mirtazpine with Side effects. She agrees with the plan we will start on low dose and titrate up. Pain in the left shoulder and the left knee. She admits to mechanical fall recently. It is tender to palpate along the left shoulder and left knee. Limited range of motion is noted. No erythema, edema are noted. We will get an x-ray of both joints. Start patient on Tylenol to be taken as needed for pain. And based on the results of the x-ray will further manage Increased sertraline to 50mg. Denies SI. Declines therapy at this point. Follow-up in 4 weeks. Vaccination. Declines Shingles. Declines Flu. Pneumo vaccine recommended Screening for colon cancer- Referred to GI for c-scope Mammogram: Ordered Mammogram HCP SON SHANNON [phone]. MOLST form discussed. Screening blood work ordered General concerns have been discussed I have rendered the services for this patient under direct supervision of Dr. Angeles, who did not see the patient but was available upon request 08/07/2024 Major depressive disorder, recurrent, mild (ICD-10 - F33.0) Celeste is 69 years old lady with DM type 2 with nephropathy, chronic kidney disease stage IIIb and she sees Dr. 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 Her last hemoglobin A1c was 10.1 and is slowly creeping up and she was out of her insulin for almost 2 weeks.. increase long-acting insulin 50 units along with Tradjenta 5mg and sliding scale. Repeat hemoglobin A1c, dietary changes. She is seen health policy nurse in the past 1 year. Foot care discussed with the patient. Hypertension.Blood pressure reasonably controlled, Not on medications. continue with diet modification. Hyperlipidemia. She is not on pravastatin. It is recommended for her to be on statin medication given that she does have history of type 2 diabetes. Will check lipid panel Chronic kidney disease stage IIIb. She follows up with [facility] nephrolog[facility] and she is not in volume overload. Avoid nephrotxins and NSAIDs Obstructive sleep apnea. She uses CPAP machine and no daytime sleepiness Morbid obesity. Advised dietary changes, low-calorie food and increase physical activity. Generalized anxiety disorder/insomnia. She is currently on sertraline 75 mg daily and her symptoms are well controlled. She is off Ambien and she is on mirtazapine 7.5 mg. Vaccination. Declines Shingles. Declines Flu. Pneumo vaccine recommended Screening for colon cancer- Referred to GI for c-scope Mammogram: Ordered Mammogram HCP SON SHANNON [phone]. MOLST form discussed. Screening blood work reviewed General concerns have been discussed I have rendered the services for this patient under direct supervision of Dr. Angeles, who did not see the patient but was available upon request 07/09/2024 Major depressive disorder, recurrent, mild (ICD-10 - F33.0) Celeste is 68 years old lady with DM type 2 with nephropathy, chronic kidney disease stage IIIb and she sees Dr. Christian, generalized anxiety disorder, migraine headaches, acid reflux, hypertension is here for follow-up. She complains of increased urinary frequency and urgency Plan is as follows. Urinary tract infection. Urine dip positive for nitrates and leukocytes. Started on Macrobid 100 mg 1 tablet twice a day, appropriate hydration and will send urine out for culture sensitivity. DM type II with nephropathy. Her last hemoglobin A1c was 8.8 and her goal is less than 7. She is currently on long-acting insulin 45 units along with and sliding scale and Tradjenta 5 mg daily. Repeat hemoglobin A1c, dietary changes. She is seen health policy nurse in the past 1 year. Foot care discussed with the patient. Hypertension/hyper lipidemia. Blood pressure reasonably controlled on amlodipine 2.5 mg daily and she is on pravastatin 40 mg daily. Chronic kidney disease stage IIIb. She follows up with Dr. Christian and she is not in volume overload. Obstructive sleep apnea. She uses CPAP machine and no daytime sleepiness Acid reflux. Continue Protonix 20 mg daily and diet restrictions discussed Neurogenic bladder. She is on Myrbetriq 25 mg 1 tablet daily Morbid obesity. Advised dietary changes, low-calorie food and increase physical activity. Generalized anxiety disorder. She needs to pillows for lorazepam because she does not have an appointment with neurologist who prescribed Ambien to her. Screening blood work ordered 07/09/2024 Morbid (severe) obesity due to excess calories (ICD-10 - E66.01) Celeste is 68 years old lady with DM type 2 with nephropathy, chronic kidney disease stage IIIb and she sees Dr. Christian, generalized anxiety disorder, migraine headaches, acid reflux, hypertension is here for follow-up. She complains of increased urinary frequency and urgency Plan is as follows. Urinary tract infection. Urine dip positive for nitrates and leukocytes. Started on Macrobid 100 mg 1 tablet twice a day, appropriate hydration and will send urine out for culture sensitivity. DM type II with nephropathy. Her last hemoglobin A1c was 8.8 and her goal is less than 7. She is currently on long-acting insulin 45 units along with and sliding scale and Tradjenta 5 mg daily. Repeat hemoglobin A1c, dietary changes. She is seen health policy nurse in the past 1 year. Foot care discussed with the patient. Hypertension/hyper lipidemia. Blood pressure reasonably controlled on amlodipine 2.5 mg daily and she is on pravastatin 40 mg daily. Chronic kidney disease stage IIIb. She follows up with Dr. Christian and she is not in volume overload. Obstructive sleep apnea. She uses CPAP machine and no daytime sleepiness Acid reflux. Continue Protonix 20 mg daily and diet restrictions discussed Neurogenic bladder. She is on Myrbetriq 25 mg 1 tablet daily Morbid obesity. Advised dietary changes, low-calorie food and increase physical activity. Generalized anxiety disorder. She needs to pillows for lorazepam because she does not have an appointment with neurologist who prescribed Ambien to her. Screening blood work ordered 08/07/2024 Morbid (severe) obesity due to excess calories (ICD-10 - E66.01) Celeste is 69 years old lady with DM type 2 with nephropathy, chronic kidney disease stage IIIb and she sees Dr. 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 Her last hemoglobin A1c was 10.1 and is slowly creeping up and she was out of her insulin for almost 2 weeks.. increase long-acting insulin 50 units along with Tradjenta 5mg and sliding scale. Repeat hemoglobin A1c, dietary changes. She is seen health policy nurse in the past 1 year. Foot care discussed with the patient. Hypertension.Blood pressure reasonably controlled, Not on medications. continue with diet modification. Hyperlipidemia. She is not on pravastatin. It is recommended for her to be on statin medication given that she does have history of type 2 diabetes. Will check lipid panel Chronic kidney disease stage IIIb. She follows up with [facility] and she is not in volume overload. Avoid nephrotxins and NSAIDs Obstructive sleep apnea. She uses CPAP machine and no daytime sleepiness Morbid obesity. Advised dietary changes, low-calorie food and increase physical activity. Generalized anxiety disorder/insomnia. She is currently on sertraline 75 mg daily and her symptoms are well controlled. She is off Ambien and she is on mirtazapine 7.5 mg. Vaccination. Declines Shingles. Declines Flu. Pneumo vaccine recommended Screening for colon cancer- Referred to GI for c-scope Mammogram: Ordered Mammogram HCP SON SHANNON [phone]. MOLST form discussed. Screening blood work reviewed General concerns have been discussed I have rendered the services for this patient under direct supervision of Dr. Angeles, who did not see the patient but was available upon request 07/30/2024 Major depressive disorder, recurrent, mild (ICD-10 - F33.0) Celeste is 69 years old lady with DM type 2 with nephropathy, chronic kidney disease stage IIIb and she sees Dr. 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 Her last hemoglobin A1c was 8.8 and her goal is less than 7. She is currently on long-acting insulin 45 units along with Tradjenta 5mg and sliding scale. Repeat hemoglobin A1c, dietary changes. She is seen health policy nurse in the past 1 year. Foot care discussed with the patient. EKG is performed in the office today with heart rate of 102 bpm, sinus tachycardia. No ST elevation or depression. No bundle branch block. Hypertension.Blood pressure reasonably controlled, Not on medications. continue with diet modification. Hyperlipidemia. She is not on pravastatin. It is recommended for her to be on statin medication given that she does have history of type 2 diabetes. Will check lipid panel Chronic kidney disease stage IIIb. She follows up with [facility] neph[facility] and she is not in volume overload. Avoid nephrotxins and NSAIDs Obstructive sleep apnea. She uses CPAP machine and no daytime sleepiness Morbid obesity. Advised dietary changes, low-calorie food and increase physical activity. Generalized anxiety disorder. She needs to pillows for lorazepam, she is not on AMbien as per patient it affects her vision. Discussed Mirtazpine with Side effects. She agrees with the plan we will start on low dose and titrate up. Pain in the left shoulder and the left knee. She admits to mechanical fall recently. It is tender to palpate along the left shoulder and left knee. Limited range of motion is noted. No erythema, edema are noted. We will get an x-ray of both joints. Start patient on Tylenol to be taken as needed for pain. And based on the results of the x-ray will further manage Increased sertraline to 50mg. Denies SI. Declines therapy at this point. Follow-up in 4 weeks. Vaccination. Declines Shingles. Declines Flu. Pneumo vaccine recommended Screening for colon cancer- Referred to GI for c-scope Mammogram: Ordered Mammogram HCP SON SHANNON [phone]. MOLST form discussed. Screening blood work ordered General concerns have been discussed I have rendered the services for this patient under direct supervision of Dr. Angeles, who did not see the patient but was available upon request 08/07/2024 Obstructive sleep apnea (adult) (pediatric) (ICD-10 - G47.33) Celeste is 69 years old lady with DM type 2 with nephropathy, chronic kidney disease stage IIIb and she sees Dr. 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 Her last hemoglobin A1c was 10.1 and is slowly creeping up and she was out of her insulin for almost 2 weeks.. increase long-acting insulin 50 units along with Tradjenta 5mg and sliding scale. Repeat hemoglobin A1c, dietary changes. She is seen health policy nurse in the past 1 year. Foot care discussed with the patient. Hypertension.Blood pressure reasonably controlled, Not on medications. continue with diet modification. Hyperlipidemia. She is not on pravastatin. It is recommended for her to be on statin medication given that she does have history of type 2 diabetes. Will check lipid panel Chronic kidney disease stage IIIb. She follows up with [facility] and she is not in volume overload. Avoid nephrotxins and NSAIDs Obstructive sleep apnea. She uses CPAP machine and no daytime sleepiness Morbid obesity. Advised dietary changes, low-calorie food and increase physical activity. Generalized anxiety disorder/insomnia. She is currently on sertraline 75 mg daily and her symptoms are well controlled. She is off Ambien and she is on mirtazapine 7.5 mg. Vaccination. Declines Shingles. Declines Flu. Pneumo vaccine recommended Screening for colon cancer- Referred to GI for c-scope Mammogram: Ordered Mammogram HCP SON SHANNON [phone]. MOLST form discussed. Screening blood work reviewed General concerns have been discussed I have rendered the services for this patient under direct supervision of Dr. Angeles, who did not see the patient but was available upon request 07/30/2024 Morbid (severe) obesity due to excess calories (ICD-10 - E66.01) Celeste is 69 years old lady with DM type 2 with nephropathy, chronic kidney disease stage IIIb and she sees Dr. 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 Her last hemoglobin A1c was 8.8 and her goal is less than 7. She is currently on long-acting insulin 45 units along with Tradjenta 5mg and sliding scale. Repeat hemoglobin A1c, dietary changes. She is seen health policy nurse in the past 1 year. Foot care discussed with the patient. EKG is performed in the office today with heart rate of 102 bpm, sinus tachycardia. No ST elevation or depression. No bundle branch block. Hypertension.Blood pressure reasonably controlled, Not on medications. continue with diet modification. Hyperlipidemia. She is not on pravastatin. It is recommended for her to be on statin medication given that she does have history of type 2 diabetes. Will check lipid panel Chronic kidney disease stage IIIb. She follows up with [facility] nephrologgy and she is not in volume overload. Avoid nephrotxins and NSAIDs Obstructive sleep apnea. She uses CPAP machine and no daytime sleepiness Morbid obesity. Advised dietary changes, low-calorie food and increase physical activity. Generalized anxiety disorder. She needs to pillows for lorazepam, she is not on AMbien as per patient it affects her vision. Discussed Mirtazpine with Side effects. She agrees with the plan we will start on low dose and titrate up. Pain in the left shoulder and the left knee. She admits to mechanical fall recently. It is tender to palpate along the left shoulder and left knee. Limited range of motion is noted. No erythema, edema are noted. We will get an x-ray of both joints. Start patient on Tylenol to be taken as needed for pain. And based on the results of the x-ray will further manage Increased sertraline to 50mg. Denies SI. Declines therapy at this point. Follow-up in 4 weeks. Vaccination. Declines Shingles. Declines Flu. Pneumo vaccine recommended Screening for colon cancer- Referred to GI for c-scope Mammogram: Ordered Mammogram HCP SON SHANNON [phone]. MOLST form discussed. Screening blood work ordered General concerns have been discussed I have rendered the services for this patient under direct supervision of Dr. Angeles, who did not see the patient but was available upon request 08/07/2024 Generalized anxiety disorder (ICD-10 - F41.1) Celeste is 69 years old lady with DM type 2 with nephropathy, chronic kidney disease stage IIIb and she sees Dr. 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 Her last hemoglobin A1c was 10.1 and is slowly creeping up and she was out of her insulin for almost 2 weeks.. increase long-acting insulin 50 units along with Tradjenta 5mg and sliding scale. Repeat hemoglobin A1c, dietary changes. She is seen health policy nurse in the past 1 year. Foot care discussed with the patient. Hypertension.Blood pressure reasonably controlled, Not on medications. continue with diet modification. Hyperlipidemia. She is not on pravastatin. It is recommended for her to be on statin medication given that she does have history of type 2 diabetes. Will check lipid panel Chronic kidney disease stage IIIb. She follows up with [facility] nephrologgy and she is not in volume overload. Avoid nephrotxins and NSAIDs Obstructive sleep apnea. She uses CPAP machine and no daytime sleepiness Morbid obesity. Advised dietary changes, low-calorie food and increase physical activity. Generalized anxiety disorder/insomnia. She is currently on sertraline 75 mg daily and her symptoms are well controlled. She is off Ambien and she is on mirtazapine 7.5 mg. Vaccination. Declines Shingles. Declines Flu. Pneumo vaccine recommended Screening for colon cancer- Referred to GI for c-scope Mammogram: Ordered Mammogram HCP SON SHANNON [phone]. MOLST form discussed. Screening blood work reviewed General concerns have been discussed I have rendered the services for this patient under direct supervision of Dr. Angeles, who did not see the patient but was available upon request 07/30/2024 Obstructive sleep apnea (adult) (pediatric) (ICD-10 - G47.33) Celeste is 69 years old lady with DM type 2 with nephropathy, chronic kidney disease stage IIIb and she sees Dr. 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 Her last hemoglobin A1c was 8.8 and her goal is less than 7. She is currently on long-acting insulin 45 units along with Tradjenta 5mg and sliding scale. Repeat hemoglobin A1c, dietary changes. She is seen health policy nurse in the past 1 year. Foot care discussed with the patient. EKG is performed in the office today with heart rate of 102 bpm, sinus tachycardia. No ST elevation or depression. No bundle branch block. Hypertension.Blood pressure reasonably controlled, Not on medications. continue with diet modification. Hyperlipidemia. She is not on pravastatin. It is recommended for her to be on statin medication given that she does have history of type 2 diabetes. Will check lipid panel Chronic kidney disease stage IIIb. She follows up with [facility] nephrologgy and she is not in volume overload. Avoid nephrotxins and NSAIDs Obstructive sleep apnea. She uses CPAP machine and no daytime sleepiness Morbid obesity. Advised dietary changes, low-calorie food and increase physical activity. Generalized anxiety disorder. She needs to pillows for lorazepam, she is not on AMbien as per patient it affects her vision. Discussed Mirtazpine with Side effects. She agrees with the plan we will start on low dose and titrate up. Pain in the left shoulder and the left knee. She admits to mechanical fall recently. It is tender to palpate along the left shoulder and left knee. Limited range of motion is noted. No erythema, edema are noted. We will get an x-ray of both joints. Start patient on Tylenol to be taken as needed for pain. And based on the results of the x-ray will further manage Increased sertraline to 50mg. Denies SI. Declines therapy at this point. Follow-up in 4 weeks. Vaccination. Declines Shingles. Declines Flu. Pneumo vaccine recommended Screening for colon cancer- Referred to GI for c-scope Mammogram: Ordered Mammogram HCP SON SHANNON [phone]. MOLST form discussed. Screening blood work ordered General concerns have been discussed I have rendered the services for this patient under direct supervision of Dr. Angeles, who did not see the patient but was available upon request 07/30/2024 Insomnia, unspecified (ICD-10 - G47.00) Celeste is 69 years old lady with DM type 2 with nephropathy, chronic kidney disease stage IIIb and she sees Dr. 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 Her last hemoglobin A1c was 8.8 and her goal is less than 7. She is currently on long-acting insulin 45 units along with Tradjenta 5mg and sliding scale. Repeat hemoglobin A1c, dietary changes. She is seen health policy nurse in the past 1 year. Foot care discussed with the patient. EKG is performed in the office today with heart rate of 102 bpm, sinus tachycardia. No ST elevation or depression. No bundle branch block. Hypertension.Blood pressure reasonably controlled, Not on medications. continue with diet modification. Hyperlipidemia. She is not on pravastatin. It is recommended for her to be on statin medication given that she does have history of type 2 diabetes. Will check lipid panel Chronic kidney disease stage IIIb. She follows up with [facility] nephrologgy and she is not in volume overload. Avoid nephrotxins and NSAIDs Obstructive sleep apnea. She uses CPAP machine and no daytime sleepiness Morbid obesity. Advised dietary changes, low-calorie food and increase physical activity. Generalized anxiety disorder. She needs to pillows for lorazepam, she is not on AMbien as per patient it affects her vision. Discussed Mirtazpine with Side effects. She agrees with the plan we will start on low dose and titrate up. Pain in the left shoulder and the left knee. She admits to mechanical fall recently. It is tender to palpate along the left shoulder and left knee. Limited range of motion is noted. No erythema, edema are noted. We will get an x-ray of both joints. Start patient on Tylenol to be taken as needed for pain. And based on the results of the x-ray will further manage Increased sertraline to 50mg. Denies SI. Declines therapy at this point. Follow-up in 4 weeks. Vaccination. Declines Shingles. Declines Flu. Pneumo vaccine recommended Screening for colon cancer- Referred to GI for c-scope Mammogram: Ordered Mammogram HCP SON SHANNON [phone]. MOLST form discussed. Screening blood work ordered General concerns have been discussed I have rendered the services for this patient under direct supervision of Dr. Angeles, who did not see the patient but was available upon request 07/30/2024 Generalized anxiety disorder (ICD-10 - F41.1) Celeste is 69 years old lady with DM type 2 with nephropathy, chronic kidney disease stage IIIb and she sees Dr. 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 Her last hemoglobin A1c was 8.8 and her goal is less than 7. She is currently on long-acting insulin 45 units along with Tradjenta 5mg and sliding scale. Repeat hemoglobin A1c, dietary changes. She is seen health policy nurse in the past 1 year. Foot care discussed with the patient. EKG is performed in the office today with heart rate of 102 bpm, sinus tachycardia. No ST elevation or depression. No bundle branch block. Hypertension.Blood pressure reasonably controlled, Not on medications. continue with diet modification. Hyperlipidemia. She is not on pravastatin. It is recommended for her to be on statin medication given that she does have history of type 2 diabetes. Will check lipid panel Chronic kidney disease stage IIIb. She follows up with [facility] nephrologgy and she is not in volume overload. Avoid nephrotxins and NSAIDs Obstructive sleep apnea. She uses CPAP machine and no daytime sleepiness Morbid obesity. Advised dietary changes, low-calorie food and increase physical activity. Generalized anxiety disorder. She needs to pillows for lorazepam, she is not on AMbien as per patient it affects her vision. Discussed Mirtazpine with Side effects. She agrees with the plan we will start on low dose and titrate up. Pain in the left shoulder and the left knee. She admits to mechanical fall recently. It is tender to palpate along the left shoulder and left knee. Limited range of motion is noted. No erythema, edema are noted. We will get an x-ray of both joints. Start patient on Tylenol to be taken as needed for pain. And based on the results of the x-ray will further manage Increased sertraline to 50mg. Denies SI. Declines therapy at this point. Follow-up in 4 weeks. Vaccination. Declines Shingles. Declines Flu. Pneumo vaccine recommended Screening for colon cancer- Referred to GI for c-scope Mammogram: Ordered Mammogram HCP SON SHANNON [phone]. MOLST form discussed. Screening blood work ordered General concerns have been discussed I have rendered the services for this patient under direct supervision of Dr. Angeles, who did not see the patient but was available upon request 07/30/2024 Pain in left shoulder (ICD-10 - M25.512) Celeste is 69 years old lady with DM type 2 with nephropathy, chronic kidney disease stage IIIb and she sees Dr. 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 Her last hemoglobin A1c was 8.8 and her goal is less than 7. She is currently on long-acting insulin 45 units along with Tradjenta 5mg and sliding scale. Repeat hemoglobin A1c, dietary changes. She is seen health policy nurse in the past 1 year. Foot care discussed with the patient. EKG is performed in the office today with heart rate of 102 bpm, sinus tachycardia. No ST elevation or depression. No bundle branch block. Hypertension.Blood pressure reasonably controlled, Not on medications. continue with diet modification. Hyperlipidemia. She is not on pravastatin. It is recommended for her to be on statin medication given that she does have history of type 2 diabetes. Will check lipid panel Chronic kidney disease stage IIIb. She follows up with [facility] nephrologgy and she is not in volume overload. Avoid nephrotxins and NSAIDs Obstructive sleep apnea. She uses CPAP machine and no daytime sleepiness Morbid obesity. Advised dietary changes, low-calorie food and increase physical activity. Generalized anxiety disorder. She needs to pillows for lorazepam, she is not on AMbien as per patient it affects her vision. Discussed Mirtazpine with Side effects. She agrees with the plan we will start on low dose and titrate up. Pain in the left shoulder and the left knee. She admits to mechanical fall recently. It is tender to palpate along the left shoulder and left knee. Limited range of motion is noted. No erythema, edema are noted. We will get an x-ray of both joints. Start patient on Tylenol to be taken as needed for pain. And based on the results of the x-ray will further manage Increased sertraline to 50mg. Denies SI. Declines therapy at this point. Follow-up in 4 weeks. Vaccination. Declines Shingles. Declines Flu. Pneumo vaccine recommended Screening for colon cancer- Referred to GI for c-scope Mammogram: Ordered Mammogram HCP SON SHANNON [phone]. MOLST form discussed. Screening blood work ordered General concerns have been discussed I have rendered the services for this patient under direct supervision of Dr. Angeles, who did not see the patient but was available upon request 07/30/2024 Pain in unspecified knee (ICD-10 - M25.569) Celeste is 69 years old lady with DM type 2 with nephropathy, chronic kidney disease stage IIIb and she sees Dr. 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 Her last hemoglobin A1c was 8.8 and her goal is less than 7. She is currently on long-acting insulin 45 units along with Tradjenta 5mg and sliding scale. Repeat hemoglobin A1c, dietary changes. She is seen health policy nurse in the past 1 year. Foot care discussed with the patient. EKG is performed in the office today with heart rate of 102 bpm, sinus tachycardia. No ST elevation or depression. No bundle branch block. Hypertension.Blood pressure reasonably controlled, Not on medications. continue with diet modification. Hyperlipidemia. She is not on pravastatin. It is recommended for her to be on statin medication given that she does have history of type 2 diabetes. Will check lipid panel Chronic kidney disease stage IIIb. She follows up with [facility] nephrologgy and she is not in volume overload. Avoid nephrotxins and NSAIDs Obstructive sleep apnea. She uses CPAP machine and no daytime sleepiness Morbid obesity. Advised dietary changes, low-calorie food and increase physical activity. Generalized anxiety disorder. She needs to pillows for lorazepam, she is not on AMbien as per patient it affects her vision. Discussed Mirtazpine with Side effects. She agrees with the plan we will start on low dose and titrate up. Pain in the left shoulder and the left knee. She admits to mechanical fall recently. It is tender to palpate along the left shoulder and left knee. Limited range of motion is noted. No erythema, edema are noted. We will get an x-ray of both joints. Start patient on Tylenol to be taken as needed for pain. And based on the results of the x-ray will further manage Increased sertraline to 50mg. Denies SI. Declines therapy at this point. Follow-up in 4 weeks. Vaccination. Declines Shingles. Declines Flu. Pneumo vaccine recommended Screening for colon cancer- Referred to GI for c-scope Mammogram: Ordered Mammogram HCP SON SHANNON [phone]. MOLST form discussed. Screening blood work ordered General concerns have been discussed I have rendered the services for this patient under direct supervision of Dr. Angeles, who did not see the patient but was available upon request 07/30/2024 Encounter for screening for malignant neoplasm of colon (ICD-10 - Z12.11) Celeste is 69 years old lady with DM type 2 with nephropathy, chronic kidney disease stage IIIb and she sees Dr. 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 Her last hemoglobin A1c was 8.8 and her goal is less than 7. She is currently on long-acting insulin 45 units along with Tradjenta 5mg and sliding scale. Repeat hemoglobin A1c, dietary changes. She is seen health policy nurse in the past 1 year. Foot care discussed with the patient. EKG is performed in the office today with heart rate of 102 bpm, sinus tachycardia. No ST elevation or depression. No bundle branch block. Hypertension.Blood pressure reasonably controlled, Not on medications. continue with diet modification. Hyperlipidemia. She is not on pravastatin. It is recommended for her to be on statin medication given that she does have history of type 2 diabetes. Will check lipid panel Chronic kidney disease stage IIIb. She follows up with [facility] nephrolog[facility] and she is not in volume overload. Avoid nephrotxins and NSAIDs Obstructive sleep apnea. She uses CPAP machine and no daytime sleepiness Morbid obesity. Advised dietary changes, low-calorie food and increase physical activity. Generalized anxiety disorder. She needs to pillows for lorazepam, she is not on AMbien as per patient it affects her vision. Discussed Mirtazpine with Side effects. She agrees with the plan we will start on low dose and titrate up. Pain in the left shoulder and the left knee. She admits to mechanical fall recently. It is tender to palpate along the left shoulder and left knee. Limited range of motion is noted. No erythema, edema are noted. We will get an x-ray of both joints. Start patient on Tylenol to be taken as needed for pain. And based on the results of the x-ray will further manage Increased sertraline to 50mg. Denies SI. Declines therapy at this point. Follow-up in 4 weeks. Vaccination. Declines Shingles. Declines Flu. Pneumo vaccine recommended Screening for colon cancer- Referred to GI for c-scope Mammogram: Ordered Mammogram HCP SON SHANNON [phone]. MOLST form discussed. Screening blood work ordered General concerns have been discussed I have rendered the services for this patient under direct supervision of Dr. Angeles, who did not see the patient but was available upon request 07/30/2024 Encounter for screening mammogram for malignant neoplasm of breast (ICD-10 - Z12.31) Celeste is 69 years old lady with DM type 2 with nephropathy, chronic kidney disease stage IIIb and she sees Dr. 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 Her last hemoglobin A1c was 8.8 and her goal is less than 7. She is currently on long-acting insulin 45 units along with Tradjenta 5mg and sliding scale. Repeat hemoglobin A1c, dietary changes. She is seen health policy nurse in the past 1 year. Foot care discussed with the patient. EKG is performed in the office today with heart rate of 102 bpm, sinus tachycardia. No ST elevation or depression. No bundle branch block. Hypertension.Blood pressure reasonably controlled, Not on medications. continue with diet modification. Hyperlipidemia. She is not on pravastatin. It is recommended for her to be on statin medication given that she does have history of type 2 diabetes. Will check lipid panel Chronic kidney disease stage IIIb. She follows up with [facility] nephrolog[facility] and she is not in volume overload. Avoid nephrotxins and NSAIDs Obstructive sleep apnea. She uses CPAP machine and no daytime sleepiness Morbid obesity. Advised dietary changes, low-calorie food and increase physical activity. Generalized anxiety disorder. She needs to pillows for lorazepam, she is not on AMbien as per patient it affects her vision. Discussed Mirtazpine with Side effects. She agrees with the plan we will start on low dose and titrate up. Pain in the left shoulder and the left knee. She admits to mechanical fall recently. It is tender to palpate along the left shoulder and left knee. Limited range of motion is noted. No erythema, edema are noted. We will get an x-ray of both joints. Start patient on Tylenol to be taken as needed for pain. And based on the results of the x-ray will further manage Increased sertraline to 50mg. Denies SI. Declines therapy at this point. Follow-up in 4 weeks. Vaccination. Declines Shingles. Declines Flu. Pneumo vaccine recommended Screening for colon cancer- Referred to GI for c-scope Mammogram: Ordered Mammogram HCP SON SHANNON [phone]. MOLST form discussed. Screening blood work ordered General concerns have been discussed I have rendered the services for this patient under direct supervision of Dr. Angeles, who did not see the patient but was available upon request Plan Of Treatment Pending Test Test Name Order Date MAMMOGRAM, SCREENING 07/30/2024 COMPREHENSIVE METABOLIC PANEL 12/28/2021 DHEA SULFATE 04/05/2023 MICROALBUMIN, URINE 12/28/2021 TESTOSTERONE, TOTAL (FEMALES AND CHILDRE N < 16YRS) 04/05/2023 Xray: Knee Left (Standard, 4 Views) 07/10 Xray: Shoulder Left-Min 2 Vws 03/16/2023 Xray: Shoulder Left-Min 2 Vws 03/27/2024 Xray: Shoulder Left-Min 2 Vws 07/30/2024 Future Test Test Name Order Date MAMMOGRAM, SCREENING 06/29/2023 [id number] 08/07/2024 Hemoglobin [id number] 08/07/2024 Lipid Panel-[id number] 08/07/2024 Next Appt Details Provider Name:DOREEN ANGELES , 10/08/2024 02:45:00 PM, [address] [address], [place], [address], Insurance Providers Payer Name Payer Address Payer Phone Subscriber Number Group Number Insured Name Patient Relationship to Insured Coverage Start Date Coverage End Date [facility] [address] [place] [phone] [id number] Jane Nuñez Self - patient is the insured [place] [address] [place] [address] [id number] aJne Nuñez Self - patient is the insured Medical (General) History Medical History History ICD Code Anxiety/Depression, sees pro vider at [facility], [place] Neurogenic bladder hyperlipidemia GDM CKD stage III and she follows up with Dr Crystal Christian hypertension NICO Insulin-dependent DM type II Migraine and see Dr Noriega Surgical History Surgery Date(Month/Year) Appendectomy Neck surgery Hospitalization History Reason Date(Month/Year) surgeries
--- OUTSIDE RECORDS SUMMARY | 2024-10-07 13:04 | XMS_ITS | Patient Health Record ---
Author Organization [facility] Address [address] [place] [id number] Care Team Providers Care Pin Sorter And Bagger Name Role Phone DOREEN ANGELES Primary Care Provider Iban Hilliard [phone] Allergies Allergen (clinical drug ingredient) Drug/Non Drug Allergy documented on EMR Reaction Allergy Type Onset Date Status Substance with sulfonamide structure and antibacterial mechanism of action (substance) Sulfa Antibiotics Unknown Drug Allergy Active prednisone Prednisone Unknown Drug Allergy Activ e aspirin Aspirin Unknown Drug Allergy Active Reason For Referral No Information Medications Medication SIG (Take, Route, Frequency, Duration) [...] MOUTH EVERY DAY Oral for 90 Active Immunizations Vaccine Route Administration Date Status Comme nts Influenza Unknown 08/23/2023 Refused Social History Tobacco Use: Social History Observation Description Date Details (start date - stop date) Never Smoker NA - NA Tobacco Use/Smoking Question Answer Notes Patient is a nonsmoker Alcohol Screen Question Answer Notes Did you have a drink containing alcohol in the p ast year? No Points 0 Interpretation Negative Section Notes: Nonsmoker; no alcohol Nonsmoker; no alcohol Nonsmoker; no alcohol Problems Problem Type SNOMED Code ICD Code Onset Dates Problem Status W/U Status Risk Notes Problem Diverticular disease of colon (325781849) Diverticulosis of large intestine without perforation or abscess without bleeding (K57.30) Active confirmed Problem Dysphagia (65031539) Dysphagia (R13.10) Active confirmed Problem 592186125 Screening for colon cancer (Z12.11) Active confirmed Problem 39865750 Esophageal dysphagia (R13.19) Active confirmed Plan Of Treatment Pending Test Test Name Order Date XR BARIUM SWALLOW-ESOPHAGUS 02/21/2023 [place] barium swallow 05/12/2023 Future Test Test Name Order Date UPPER GI ENDOSCOPY BALLOOON DILATION OF ESOPH 07/19/2022 COLONOSCOPY 07/19/2022 Insurance Providers Payer Name Payer Address Payer Phone Subscriber Number Group Number Insured Name Patient Relationship to Insured Coverage Start Date Coverage End Date [facility] [address] [address] [place] [phone] [id number] AURELIA GARCIA Self - patient is the insured Medical (General) History Medical History History ICD Code IDDM CKD STAGE III--sees Dr. Christian Reports a negative colonoscopy at age 51 Denies NC,CVA,Lung disease Migraines Hyperlipidemia Kidney stones Uterine fibroids [...]
--- OUTSIDE RECORDS SUMMARY | 2024-10-07 13:04 | XMS_ITS | Clinical Summary ---
Author Organization [facility] Address [address] [place] [address] Care Team Providers Care Cook Short Order Name Role Phone Unavailable Primary Care Provider Unavailabl e Social History Tobacco Use Types Packs/Day Years Used Date Smoking Tobacco: Never Assessed Sex and Gender Information Value Date Recorded Sex Assigned at Not on file Gender Identity Not on file Sexual Orientation Not on file Plan of Treatment Not on file
--- OUTSIDE RECORDS SUMMARY | 2024-10-07 13:04 | XMS_ITS | Clinical Summary ---
Author Organization [facility] Address [address] [place] [address] Care Team Providers Care Mailing Machine Helper Name Role Phone Unavailable Primary Care Provider [...] 1955 DTaP,Tdap,and Td Vaccines (1 - Tdap) 06/09/1975 Pneumococcal Vaccine: 50+ Ye ars (1 of 1 - PCV) 2006 Zoster Vaccines (1 of 2) 2006 Colorectal Cancer Screening: Colonoscopy 03/23/2022 Depression Screening 03/23/2022 Falls Risk Assessment 03/23/2022 Hepatitis C Screening 03/23/2022 Osteoporosis Screening (Bone Density Screening) 03/23/2022 Social Influencers of Health Screening 03/23/2022 COVID-19 Vaccine ( - 2023-2 5 season) 2023 Influenza Vaccine (Season Ended) 2024 RSV Immunization Adult Patie nts (1 - 1-dose 75+ series) 06/09/2031 HIB [...] age to complete this topic Meningococcal B Vaccine Aged Out No l onger eligible based on patient's age to complete this topic RSV Immunization Patients Un augustine 20 months Aged Out No longer eligible b ased on patient's age to complete this topic Varicella Vaccines Aged Out No longer eligible based on patient's age to complete this topic
--- OUTSIDE RECORDS SUMMARY | 2024-10-07 13:04 | XMS_ITS | Clinical Summary ---
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 [address] [place] [address] Dano Lucas MD Stage 3b chronic kidney disease (HCC) 07/19/2024 Orders Only [facility] [address] [place] [phone] Dano Lucas MD Stage 3b chronic kidney [...] Care Team (Late st Contact Info) Description 12/23/2024 10:00 AM EDT Office Visit [facility] [address] [phone] Dano Lucas MD [address] [phone] Health Maintenance Due Date Last Done Comments Breast Cancer Screening 1955 Pneumococcal Vaccine: 50+ Ye ars (1 of 2 - PCV) 06/09/1975 Colorectal Cancer Screening: Annual FOBT 2005 Colorectal Cancer Screening: Colonoscopy 2005 Colorectal Cancer Screening: Sigmoidoscopy 2005 Diabetes: Hemoglobin A1C 12/19/2023 05/21/2021 Diabetes: Ophthalmology Exam 12/19/2023 Diabetes: Pedal Pulse Checked 12/19/2023 Diabetes: Sensory Foot Exam 12/19/2023 Diabetes: Visual Foot Exam 12/19/2023 Influenza Vaccine (Season Ended) 2024 Hepatitis B Vaccine Aged Out 09/16/2024 No longe r eligible based on patient's age to complete this topic Procedures Procedure Name Priority Date/Time Associated Diagnosis Comments EXT RESULT ENTRY Routine 05/21/2021 from Last 3 Months or Most Recently Relevant to Health Maintenance Results * (ABNORMAL) EXT RESULT ENTRY (05/21/2021) ALT (SGPT) 9 U/L AST (SGOT) 12 U/L Hemoglobin A1C 8.2(A) 4.0 - 6.0 Triglycerides 138 40 - 160 Cholesterol 198 0 - 200 HDL 56 35 - 70 MG/DL LDL Calculated 114 0 - 160 mg/dL 05/21/2021 [facility] Provider LAB BLOOD ORDERABLES Yu l Result from Last 3 Months or Most Recently Relevant to Health Maintenance [place] Sub[place] Plan / Payer (Ef fective 2024-Present) Name:Jane Nuñez Relation to Subscriber:Self Name:Jane Nuñez Payer ID:Not on file Group ID:Not on file Type:Not on file Address: [address] Medicare Care Teams Commercial Green Retrofit Architect Relationship Specialty Start Date End Date Diego Dacosta MD [address] [place] [phone] PCP - General Internal Medicine 12/06/21
== END 2024-10-07 12:39 | disposition home or self-care (01) ==
LOC: HO.CT 12:38
PROVIDERS: PCP Hospitalist; Visit Provider Registered Nurse
DX: R55 Syncope and collapse (principal)
CPT/HCPCS: 70450

== ENCOUNTER → 2024-10-07 12:41 | Outpatient (BNV) | payer OTHER, MEDICAID, SELFPAY | PROVIDERS: PCP Hospitalist; Visit Provider Radiology Diagnostic Radiology | DX: R55 Syncope and collapse (principal) | CPT/HCPCS: 70450 ==

== ENCOUNTER 2024-10-10 12:15 | Outpatient (REF) | payer OTHER, MEDICAID, SELFPAY ==
--- OUTSIDE RECORDS SUMMARY | 2024-10-08 10:45 | XMS_ITS ---
Author Organization [email or web address] Address [address] [place] [address] Care Team Providers Care Chief Catalyst Operator Name Role Phone DOREEN ANGELES Primary Care Provider Allergies Allergen (clinical drug ingredient) Drug/Non Drug Allergy documented on EMR Reaction Allergy Type Onset Date Status aspirin Aspirin Unknown Drug Allergy Active gabapentin Gabapentin Unknown Drug Allergy Activ e oxycodone Oxycodone Unknown Drug Allergy Active Penicillin yeast infection Drug Allergy Active Substance with sulfonamide structure and antibacterial mechanism of action (substance) Sulfa Antibiotics Unknown Drug Allergy Active REASON FOR VISIT 3 month f/u Medications Medication SIG (Take, Route, Frequency, Duration) Notes Start Date End Date Status amLODIPine Besylate 2.5 MG TAKE 1 TABLET BY MOUTH EVERY DAY FOR 30 DAYS; Duration: 90 Not-Taking Albuterol Sulfate HFA 108 (90 Base) MCG/ACT INHALE 2 PUFFS INTO THE LUNGS TWICE DAILY; Duration: 90 Not-Taking Mounjaro 2.5 MG/0.5ML as directed Subcutaneous weekly; Duration: 30 days 10/08/2024 Active HumaLOG KwikPen 100 UNIT/ML INJECT 2 UNITS 3 TIMES A DAY : FOR 150-199, 4 UNITS FOR 200-249,6 UNITS FOR 250-299,8 UNITS FOR 300-349, 10 UNITS FOR 350-399, 12 UNITS FOR 400 AND CALL MD Subcutaneous Subcutaneous; Duration: 30 days 08/09/2024 Active Pravastatin Sodium 40 MG TAKE 1 TABLET BY MOUTH EVERY DAY; Duration: 90 Not-Taking hydrOXYzine HCl 25 MG TAKE 1 TABLET BY MOUTH EVERY DAY AT BEDTIME NEEDED FOR 30 DAYS; Duration: 90 Not-Taking Pantoprazole Sodium 20 MG TAKE 1 TABLET BY MOUTH 30 MINUTES BEFORE DINNER; Duration: 90 Not-Taking FreeStyle Sae 2 [place] - USE TO CHECK BLOOD SUGAR 4 TIMES DAILY; Duration: 30 Not-Taking Vitamin C 500 MG TAKE 1 TABLET BY MOUTH EVERY DAY FOR 30 DAYS; Duration: 30 Not-Taking Potassium Citrate ER 15 MEQ (1620 MG) TAKE 1 TABLET BY MOUTH WITH MEALS; Duration: 30 Not-Taking Myrbetriq 25 MG 1 tablet Orally Once a day HEALTH CARE FACILITY ADMINISTRATOR Not-Taking Zolpidem Tartrate 10 MG 1 tablet at bedtime as needed Orally Once a day Neurology: Not-Taking Amitriptyline HCl 50 MG 1 tablet at bedtime Orally Once a day; Duration: 30 day(s) Neurology: Not-Taking cycloSPORINE 0.05 % 1 drop into affected eye Ophthalmic Twice a day Not-Taking Topiramate 100 MG 1 tablet Orally Twic e a day; Duration: 30 day(s) Neurology: Not-Taking Macrobid 100 MG 1 capsule with food Orally every 12 hrs; Duration: 5 days 07/09/2024 Not-Taking Cephalexin 500 MG TAKE 1 CAPSULE BY MOUTH EVERY 12 HOURS FOR 7 DAYS; Duration: 7 Not-Taking Mirtazapine 7.5 MG TAKE 2 TABLETS BY MOUTH ONCE DAILY AT BEDTIME; Duration: 90 Active BD Pen Needle Rosibel 2nd Gen 32G X 4 MM USE 1 PEN NEEDLE TO INJECT INSULIN DAILY; Duration: 90 Active Sertraline HCl 50 MG 1 tablet Orally Onc e a day; Duration: 30 days Active Sertraline HCl 25 MG TAKE 1 TABLET BY MOUTH EVERY DAY FOR 30 DAYS; Duration: 90 Active Tradjenta 5 MG 1 tablet Orally Once a day; Duration: 30 days 03/27/2024 Active LORazepam 0.5 MG 1 tablet 1/2 hour before flying Orally Once a day; Duration: 5 days 07/30/2024 Active Acetaminophen 8 Hour 650 MG 2 tablets as needed Orally every 8 hrs; Duration: 30 days 07/30/2024 Active Fluticasone Propionate 50 MCG/ACT INSTILL 1 SPRAY INTO EACH NOSTRIL EVERY DAY FOR 30 DAYS; Duration: 90 Active FreeStyle Sae 14 Day Sensor - use to check blood sugar change every 14 days; Duration: 84 days Active Rosuvastatin Calcium 20 MG 1 tablet Orally Once a day; Duration: 30 days 08/07/2024 Active Basaglar KwikPen 100 UNIT/ML INJECT 50 UNITS UNDER THE SKIN Subcutaneous once a day; Duration: 30 days Active D-1000 Extra Strength 25 MCG (1000 UT) TAKE 1 TABLET BY MOUTH EVERY DAY; Duration: 90 Active SUMAtriptan Succinate 100 MG 1 tablet as needed, may take second dose at least 2 hours after first dose up to 2 tablets per day as needed Orally Once a day; Duration: 30 days Active Social History Tobacco Use: Social History Observation Description Date Details (start date - stop date) Never Smoker NA - NA Tobacco Use/Smoking Question Answer Notes Are you a nonsmoker Alcohol Screen (Audit-C) Question Answer Notes Did you have a drink containing alcohol in the p ast year? No Points 0 Interpretation Negative Problems Problem Type SNOMED Code ICD Code Onset Dates Problem Status W/U Status Risk Notes Problem Chronic kidney disease stage 3B (disorder) (956120667) Chronic kidney disease, stage 3b (N18.32) Active confirmed Problem Obesity due to excess calories (015574020) Other obesity due to excess calories (E66.09) Active confirmed Vital Signs Temperature 96.8 degrees Fahrenheit 10/09/19 25 Blood pressure systolic 122 mm Hg 10/09/19 25 Blood pressure diastolic 80 mm Hg 025 Heart Rate 116 /min 10/08/2024 Height 60 in 10/08/2024 Weight 203.4 lbs 10/08/2024 BMI 39.72 kg/m2 10/08/2024 Oximetry 98 % 10/08/2024 Encounters Encounter Location Date Provider Diagnosis [facility] [address] [address] 10/08/2024 DOREEN ANGELES Type 2 diabetes tory itus with other diabetic kidney complication E11.29 ; Essential (primary) hypertension I10 ; Mixed hyperlipidemia E78.2 ; Hypertensive chronic kidney disease with stage 1 through stage 4 chronic kidney disease, or unspecified chronic kidney disease I12.9 ; Chronic kidney disease, stage 3b N18.32 ; Other obesity due to excess calories E66.09 ; Dietary counseling and surveillance Z71.3 ; Generalized anxiety disorder F41.1 and Insomnia, unspecified G47.00 Assessments Encounter Date Diagnosis (ICD Code) Assessment Notes Treatment Notes Treatment Clinical Notes Section Notes 10/08/2024 Type 2 diabetes mellitus with other diabetic kidney complication (ICD-10 - E11.29) Jane age [age] years old lady with DM type II, hypertension, mixed hyperlipidemia, chronic kidney disease stage IIIb, obesity, generalized anxiety disorder/depressio n is here today for follow-up on blood work. Plan is as follows Diabetes mellitus type 2 with nephropathy. A1c is 8 which has improved but goal A1c is under 7. Continue long-acting insulin 50 units and increase by 2 units every 3 days for goal blood sugars of less than 130 in the morning and postprandial less than 180. She is also on sliding scale and Tradjenta 5 mg daily. We added Mounjaro 2.5 mg every weekly and recheck hemoglobin A1c in 3 months. She is seen tellers supervisor in the past 1 year. Hypertension/hyper lipidemia. She is normotensive and she is on Crestor 20 mg daily LDL within recommended range. Chronic kidney disease stage IIIb. Stable at this point and she does not appear to be in volume overload. She follows up with tonger on a regular basis. Generalized anxiety disorder/depressio n/insomnia. She is stable on sertraline 25 mg daily and she is also on mirtazapine 7.5 mg daily Obesity. Dietary recommendation and advised regular exercise. Goal is to lose 6 pounds a month. Check A1c before next appointment 10/08/2024 Essential (primary) hypertension (ICD-10 - I10) Jane age [age] years old lady with DM type II, hypertension, mixed hyperlipidemia, chronic kidney disease stage IIIb, obesity, generalized anxiety disorder/depressio n is here today for follow-up on blood work. Plan is as follows Diabetes mellitus type 2 with nephropathy. A1c is 8 which has improved but goal A1c is under 7. Continue long-acting insulin 50 units and increase by 2 units every 3 days for goal blood sugars of less than 130 in the morning and postprandial less than 180. She is also on sliding scale and Tradjenta 5 mg daily. We added Mounjaro 2.5 mg every weekly and recheck hemoglobin A1c in 3 months. She is seen tellers supervisor in the past 1 year. Hypertension/hyper lipidemia. She is normotensive and she is on Crestor 20 mg daily LDL within recommended range. Chronic kidney disease stage IIIb. Stable at this point and she does not appear to be in volume overload. She follows up with tonger on a regular basis. Generalized anxiety disorder/depressio n/insomnia. She is stable on sertraline 25 mg daily and she is also on mirtazapine 7.5 mg daily Obesity. Dietary recommendation and advised regular exercise. Goal is to lose 6 pounds a month. Check A1c before next appointment 10/08/2024 Mixed hyperlipidemia (ICD-10 - E78.2) Jane age [age] years old lady with DM type II, hypertension, mixed hyperlipidemia, chronic kidney disease stage IIIb, obesity, generalized anxiety disorder/depressio n is here today for follow-up on blood work. Plan is as follows Diabetes mellitus type 2 with nephropathy. A1c is 8 which has improved but goal A1c is under 7. Continue long-acting insulin 50 units and increase by 2 units every 3 days for goal blood sugars of less than 130 in the morning and postprandial less than 180. She is also on sliding scale and Tradjenta 5 mg daily. We added Mounjaro 2.5 mg every weekly and recheck hemoglobin A1c in 3 months. She is seen tellers supervisor in the past 1 year. Hypertension/hyper lipidemia. She is normotensive and she is on Crestor 20 mg daily LDL within recommended range. Chronic kidney disease stage IIIb. Stable at this point and she does not appear to be in volume overload. She follows up with tonger on a regular basis. Generalized anxiety disorder/depressio n/insomnia. She is stable on sertraline 25 mg daily and she is also on mirtazapine 7.5 mg daily Obesity. Dietary recommendation and advised regular exercise. Goal is to lose 6 pounds a month. Check A1c before next appointment 10/08/2024 Hypertensive chronic kidney disease with stage 1 through stage 4 chronic kidney disease, or unspecified chronic kidney disease (ICD-10 - I12.9) Jane age [age] years old lady with DM type II, hypertension, mixed hyperlipidemia, chronic kidney disease stage IIIb, obesity, generalized anxiety disorder/depressio n is here today for follow-up on blood work. Plan is as follows Diabetes mellitus type 2 with nephropathy. A1c is 8 which has improved but goal A1c is under 7. Continue long-acting insulin 50 units and increase by 2 units every 3 days for goal blood sugars of less than 130 in the morning and postprandial less than 180. She is also on sliding scale and Tradjenta 5 mg daily. We added Mounjaro 2.5 mg every weekly and recheck hemoglobin A1c in 3 months. She is seen tellers supervisor in the past 1 year. Hypertension/hyper lipidemia. She is normotensive and she is on Crestor 20 mg daily LDL within recommended range. Chronic kidney disease stage IIIb. Stable at this point and she does not appear to be in volume overload. She follows up with tonger on a regular basis. Generalized anxiety disorder/depressio n/insomnia. She is stable on sertraline 25 mg daily and she is also on mirtazapine 7.5 mg daily Obesity. Dietary recommendation and advised regular exercise. Goal is to lose 6 pounds a month. Check A1c before next appointment 10/08/2024 Chronic kidney disease, stage 3b (ICD-10 - N18.32) Jane age [age] years old lady with DM type II, hypertension, mixed hyperlipidemia, chronic kidney disease stage IIIb, obesity, generalized anxiety disorder/depressio n is here today for follow-up on blood work. Plan is as follows Diabetes mellitus type 2 with nephropathy. A1c is 8 which has improved but goal A1c is under 7. Continue long-acting insulin 50 units and increase by 2 units every 3 days for goal blood sugars of less than 130 in the morning and postprandial less than 180. She is also on sliding scale and Tradjenta 5 mg daily. We added Mounjaro 2.5 mg every weekly and recheck hemoglobin A1c in 3 months. She is seen tellers supervisor in the past 1 year. Hypertension/hyper lipidemia. She is normotensive and she is on Crestor 20 mg daily LDL within recommended range. Chronic kidney disease stage IIIb. Stable at this point and she does not appear to be in volume overload. She follows up with tonger on a regular basis. Generalized anxiety disorder/depressio n/insomnia. She is stable on sertraline 25 mg daily and she is also on mirtazapine 7.5 mg daily Obesity. Dietary recommendation and advised regular exercise. Goal is to lose 6 pounds a month. Check A1c before next appointment 10/08/2024 Other obesity due to excess calories (ICD-10 - E66.09) Jane age [age] years old lady with DM type II, hypertension, mixed hyperlipidemia, chronic kidney disease stage IIIb, obesity, generalized anxiety disorder/depressio n is here today for follow-up on blood work. Plan is as follows Diabetes mellitus type 2 with nephropathy. A1c is 8 which has improved but goal A1c is under 7. Continue long-acting insulin 50 units and increase by 2 units every 3 days for goal blood sugars of less than 130 in the morning and postprandial less than 180. She is also on sliding scale and Tradjenta 5 mg daily. We added Mounjaro 2.5 mg every weekly and recheck hemoglobin A1c in 3 months. She is seen tellers supervisor in the past 1 year. Hypertension/hyper lipidemia. She is normotensive and she is on Crestor 20 mg daily LDL within recommended range. Chronic kidney disease stage IIIb. Stable at this point and she does not appear to be in volume overload. She follows up with tonger on a regular basis. Generalized anxiety disorder/depressio n/insomnia. She is stable on sertraline 25 mg daily and she is also on mirtazapine 7.5 mg daily Obesity. Dietary recommendation and advised regular exercise. Goal is to lose 6 pounds a month. Check A1c before next appointment 10/08/2024 Dietary counseling and surveillance (ICD-10 - Z71.3) Jane age [age] years old lady with DM type II, hypertension, mixed hyperlipidemia, chronic kidney disease stage IIIb, obesity, generalized anxiety disorder/depressio n is here today for follow-up on blood work. Plan is as follows Diabetes mellitus type 2 with nephropathy. A1c is 8 which has improved but goal A1c is under 7. Continue long-acting insulin 50 units and increase by 2 units every 3 days for goal blood sugars of less than 130 in the morning and postprandial less than 180. She is also on sliding scale and Tradjenta 5 mg daily. We added Mounjaro 2.5 mg every weekly and recheck hemoglobin A1c in 3 months. She is seen tellers supervisor in the past 1 year. Hypertension/hyper lipidemia. She is normotensive and she is on Crestor 20 mg daily LDL within recommended range. Chronic kidney disease stage IIIb. Stable at this point and she does not appear to be in volume overload. She follows up with tonger on a regular basis. Generalized anxiety disorder/depressio n/insomnia. She is stable on sertraline 25 mg daily and she is also on mirtazapine 7.5 mg daily Obesity. Dietary recommendation and advised regular exercise. Goal is to lose 6 pounds a month. Check A1c before next appointment 10/08/2024 Generalized anxiety disorder (ICD-10 - F41.1) Jane age [age] years old lady with DM type II, hypertension, mixed hyperlipidemia, chronic kidney disease stage IIIb, obesity, generalized anxiety disorder/depressio n is here today for follow-up on blood work. Plan is as follows Diabetes mellitus type 2 with nephropathy. A1c is 8 which has improved but goal A1c is under 7. Continue long-acting insulin 50 units and increase by 2 units every 3 days for goal blood sugars of less than 130 in the morning and postprandial less than 180. She is also on sliding scale and Tradjenta 5 mg daily. We added Mounjaro 2.5 mg every weekly and recheck hemoglobin A1c in 3 months. She is seen tellers supervisor in the past 1 year. Hypertension/hyper lipidemia. She is normotensive and she is on Crestor 20 mg daily LDL within recommended range. Chronic kidney disease stage IIIb. Stable at this point and she does not appear to be in volume overload. She follows up with tonger on a regular basis. Generalized anxiety disorder/depressio n/insomnia. She is stable on sertraline 25 mg daily and she is also on mirtazapine 7.5 mg daily Obesity. Dietary recommendation and advised regular exercise. Goal is to lose 6 pounds a month. Check A1c before next appointment 10/08/2024 Insomnia, unspecified (ICD-10 - G47.00) Jane age [age] years old lady with DM type II, hypertension, mixed hyperlipidemia, chronic kidney disease stage IIIb, obesity, generalized anxiety disorder/depressio n is here today for follow-up on blood work. Plan is as follows Diabetes mellitus type 2 with nephropathy. A1c is 8 which has improved but goal A1c is under 7. Continue long-acting insulin 50 units and increase by 2 units every 3 days for goal blood sugars of less than 130 in the morning and postprandial less than 180. She is also on sliding scale and Tradjenta 5 mg daily. We added Mounjaro 2.5 mg every weekly and recheck hemoglobin A1c in 3 months. She is seen tellers supervisor in the past 1 year. Hypertension/hyper lipidemia. She is normotensive and she is on Crestor 20 mg daily LDL within recommended range. Chronic kidney disease stage IIIb. Stable at this point and she does not appear to be in volume overload. She follows up with tonger on a regular basis. Generalized anxiety disorder/depressio n/insomnia. She is stable on sertraline 25 mg daily and she is also on mirtazapine 7.5 mg daily Obesity. Dietary recommendation and advised regular exercise. Goal is to lose 6 pounds a month. Check A1c before next appointment Plan Of Treatment Medication Medication Name Sig Start Date Stop Date Notes Mounjaro 2.5 MG/0.5ML as directed Subcut aneous weekly; Duration: 30 days 10/08/2024 Pending Test Test Name Order Date Hemoglobin A1c 10/08/2024 Next Appt Details Follow Up: 3 Months, Reason: Provider Name:DOREEN ANGELES , 01/08/2025 01:45:00 PM, [address] [place] [address], [id number], Progress Notes * Michael GARCIAaDOB:1955 (69 yo F)Acc No.[id number]:10/08/2024 Progress Notes Patient: Jane ARMAS Provider: Kyra ANGELES MD :[id number] A ge:69 Y S ex:Female Date:10/08/2024 Phone: Address:[address] [place], [place] [id number] Subjective: * Chief Complaints: * 3 month f/u * HPI: I nternal Medicine: Ms. Garcia is a 69-year-old lady with chronic migraine headaches followed by Dr. Noriega, anxiety/depression, CKD stage III followed BY [facility] nephrology, neurogenic bladder, hyperlipidemia, hypertension and type II diabetes mellitus here for follow-up on blood work. Her hemoglobin A1c is 10.1 and dropped down to 8 which is significant improvement. She did not experience any hypoglycemic episodes. She is trying to modify her eating habits. She is also trying to increase her physical activity and exercise. She is on continuous glucose monitoring device. She follows up with tellers supervisor. Vision and hearing are stable. . Follows with opthalm every year. Dental every 6-months. Does not see Social Worker Psychiatric, no supecious lesions at this point. She is physically active and she walks 30 minutes everyday. Her weight is stable. Mood is stable on Sertraline. She uses a CPAP. No GI symptoms. She denies any other active issues or concerns. * ROS: G eneral/Constitutional: Overall health G ood. C hange in appetite d enies.?Chills d enies. F ever d enies. H eadache , denies. N ight sweats d enies. S leep disturbance d enies. W eight gain d enies. W eight loss d enies. N eurologic: Difficulty speaking d enies. D izziness d enies.?Gait abnormality d enies. H eadache d enies. L oss of strength d enies. M álzaro loss d enies. S eizures d enies. T ingling/Numbness d enies . O phthalmologic: Blurred vision d enies. D ischarge d enies. D ry eye d enies. R ed eye d enies. E NT: Change in Voice D enies. C old Symptoms D enies.?Cough D enies. D izziness D enies. N yonas Congestion D enies. O talgia?Denies. p ostnasal drip D enies. B locked ear d enies. N osebleed d enies. S noring d enies. C ardiovascular: Diaphoresis D enies. P edal Edema D enies. P ND (Paroxsymal nocturnal dyspnea) D enies. C hest pain d enies. D ifficulty laying flat d enies. D yspnea on exertion d enies. H eart murmur d enies. O rthopnea?denies. R espiratory: Snoring d enies. A sthma d enies. C ough d enies. S hortness of breath with exertion d enies. S putum production d enies. W heezing d enies. G astrointestinal: Change in bowel habits d enies. C onstipation d enies. D ecreased appetite d enies. D iarrhea d enies. H eartburn d enies. N ausea d enies. V omiting d enies. M usculoskeletal: tingling/numbness D enies. m yalgias D enies. J oint Swelling D enies. e xtremeties n ormal. A rthritis d enies. B ack problems d enies. C arpal tunnel d enies. J oint stiffness d enies. M uscle aches d enies. E ndocrine: Bowel Changes D enies. B reast Discharge D enies.?poor libido D enies. C old intolerance d enies. E xcessive sweating d enies.?Excessive thirst d enies. F requent urination d enies. T hyroid problems d enies. S kin: Bruising D enies. E czema d enies. H air changes d enies. R josefina d enies. S kin lesion(s) d enies. P sychiatric: Anxiety d enies. D epressed mood d enies. D ifficulty sleeping d enies. N ervous breakdown d enies. S ubstance abuse d enies.? U rology: abnormal menstrual bleeding d enies. b lood in urine?denies. b urning on urination d enies. d ifficulty urinating d enies. d ischarge d enies. d ysuria d enies. * Medical History: * Surgical History: C -section Appendectomy Neck surgery * Hospitalization/Major Diagno stic Procedure: * Family History: F ather: . M other: , diagnosed with Heart Disease, Hypertension. S on(s): diagnosed with Diabetes. P aternal Grand Mother: diagnosed with Diabetes. S iblings: diagnosed with Diabetes, Cancer. sister had Breast cancer. * Social History: T obacco Use: T obacco Use/Smoking A re you a n onsmoker D rugs/Alcohol: A lcohol Screen (Audit-C) D id you have a drink containing alcohol in the past year? N o P oints 0 I nterpretation N egative M iscellaneous: E xercise: none. Living with: family. Marital status: . Occupation: Works part-time- [email or web address]. * Medications: T akingSUMAtriptan Succinate 100 MG Tablet 1 tablet as needed, may take second dose at least 2 hours after first dose up to 2 tablets per day as needed Orally Once a day D-1000 Extra Strength 25 MCG (1000 UT) Tablet TAKE 1 TABLET BY MOUTH EVERY DAY Basaglar KwikPen 100 UNIT/ML Solution Pen-injector INJECT 50 UNITS UNDER THE SKIN Subcutaneous once a day Rosuvastatin Calcium 20 MG Tablet 1 tablet Orally Once a day FreeStyle Sae 14 Day Sensor - Miscellaneous use to check blood sugar change every 14 days Tradjenta 5 MG Tablet 1 tablet Orally Once a day Sertraline HCl 25 MG Tablet TAKE 1 TABLET BY MOUTH EVERY DAY FOR 30 DAYS Fluticasone Propionate 50 MCG/ACT Suspension INSTILL 1 SPRAY INTO EACH NOSTRIL EVERY DAY FOR 30 DAYS Acetaminophen 8 Hour 650 MG Tablet Extended Release 2 tablets as needed Orally every 8 hrs LORazepam 0.5 MG Tablet 1 tablet 1/2 hour before flying Orally Once a day Sertraline HCl 50 MG Tablet 1 tablet Orally Once a day BD Pen Needle Rosibel 2nd Gen 32G X 4 MM Miscellaneous USE 1 PEN NEEDLE TO INJECT INSULIN DAILY Mirtazapine 7.5 MG Tablet TAKE 2 TABLETS BY MOUTH ONCE DAILY AT BEDTIME HumaLOG KwikPen 100 UNIT/ML Solution Pen-injector INJECT 2 UNITS 3 TIMES A DAY : FOR 150-199, 4 UNITS FOR 200-249,6 UNITS FOR 250-299,8 UNITS FOR 300-349, 10 UNITS FOR 350-399, 12 UNITS FOR 400 AND CALL MD Subcutaneous Subcutaneous Taking SUMAtriptan Succinate 100 MG Tablet 1 tablet as needed, may take second dose at least 2 hours after first dose up to 2 tablets per day as needed Orally Once a day Taking D-1000 Extra Strength 25 MCG (1000 UT) Tablet TAKE 1 TABLET BY MOUTH EVERY DAY Taking Basaglar KwikPen 100 UNIT/ML Solution Pen-injector INJECT 50 UNITS UNDER THE SKIN Subcutaneous once a day Taking Rosuvastatin Calcium 20 MG Tablet 1 tablet Orally Once a day Taking FreeStyle Sae 14 Day Sensor - Miscellaneous use to check blood sugar change every 14 days Taking Tradjenta 5 MG Tablet 1 tablet Orally Once a day Taking Sertraline HCl 25 MG Tablet TAKE 1 TABLET BY MOUTH EVERY DAY FOR 30 DAYS Taking Fluticasone Propionate 50 MCG/ACT Suspension INSTILL 1 SPRAY INTO EACH NOSTRIL EVERY DAY FOR 30 DAYS Taking Acetaminophen 8 Hour 650 MG Tablet Extended Release 2 tablets as needed Orally every 8 hrs Taking LORazepam 0.5 MG Tablet 1 tablet 1/2 hour before flying Orally Once a day Taking Sertraline HCl 50 MG Tablet 1 tablet Orally Once a day Taking BD Pen Needle Rosibel 2nd Gen 32G X 4 MM Miscellaneous USE 1 PEN NEEDLE TO INJECT INSULIN DAILY Taking Mirtazapine 7.5 MG Tablet TAKE 2 TABLETS BY MOUTH ONCE DAILY AT BEDTIME Taking HumaLOG KwikPen 100 UNIT/ML Solution Pen-injector INJECT 2 UNITS 3 TIMES A DAY : FOR 150-199, 4 UNITS FOR 200-249,6 UNITS FOR 250-299,8 UNITS FOR 300-349, 10 UNITS FOR 350-399, 12 UNITS FOR 400 AND CALL MD Subcutaneous Subcutaneous Not- TakingCephalexin 500 MG Capsule TAKE 1 CAPSULE BY MOUTH EVERY 12 HOURS FOR 7 DAYS Macrobid 100 MG Capsule 1 capsule with food Orally every 12 hrs Zolpidem Tartrate 10 MG Tablet 1 tablet at bedtime as needed Orally Once a day , Notes to Pharmacist: Neurology:Myrbetriq 25 MG Tablet Extended Release 24 Hour 1 tablet Orally Once a day , Notes to Pharmacist: GYNTopiramate 100 MG Tablet 1 tablet Orally Twice a day , Notes to Pharmacist: Neurology:cycloSPORINE 0.05 % Emulsion 1 drop into affected eye Ophthalmic Twice a day Amitriptyline HCl 50 MG Tablet 1 tablet at bedtime Orally Once a day , Notes to Pharmacist: Neurology:Potassium Citrate ER 15 MEQ (1620 MG) Tablet Extended Release TAKE 1 TABLET BY MOUTH WITH MEALS Vitamin C 500 MG Tablet TAKE 1 TABLET BY MOUTH EVERY DAY FOR 30 DAYS thesweetlink 2 [place] - Device USE TO CHECK BLOOD SUGAR 4 TIMES DAILY Pantoprazole Sodium 20 MG Tablet Delayed Release TAKE 1 TABLET BY MOUTH 30 MINUTES BEFORE DINNER hydrOXYzine HCl 25 MG Tablet TAKE 1 TABLET BY MOUTH EVERY DAY AT BEDTIME NEEDED FOR 30 DAYS Albuterol Sulfate HFA 108 (90 Base) MCG/ACT Aerosol Solution INHALE 2 PUFFS INTO THE LUNGS TWICE DAILY amLODIPine Besylate 2.5 MG Tablet TAKE 1 TABLET BY MOUTH EVERY DAY FOR 30 DAYS Pravastatin Sodium 40 MG Tablet TAKE 1 TABLET BY MOUTH EVERY DAY Not-Taking Cephalexin 500 MG Capsule TAKE 1 CAPSULE BY MOUTH EVERY 12 HOURS FOR 7 DAYS Not-Taking Macrobid 100 MG Capsule 1 capsule with food Orally every 12 hrs Not-Taking Zolpidem Tartrate 10 MG Tablet 1 tablet at bedtime as needed Orally Once a day , Notes to Pharmacist: Neurology:Not-Taking Myrbetriq 25 MG Tablet Extended Release 24 Hour 1 tablet Orally Once a day , Notes to Pharmacist: GYNNot-Taking Topiramate 100 MG Tablet 1 tablet Orally Twice a day , Notes to Pharmacist: Neurology:Not-Taking cycloSPORINE 0.05 % Emulsion 1 drop into affected eye Ophthalmic Twice a day Not-Taking Amitriptyline HCl 50 MG Tablet 1 tablet at bedtime Orally Once a day , Notes to Pharmacist: Neurology:Not-Taking Potassium Citrate ER 15 MEQ (1620 MG) Tablet Extended Release TAKE 1 TABLET BY MOUTH WITH MEALS Not-Taking Vitamin C 500 MG Tablet TAKE 1 TABLET BY MOUTH EVERY DAY FOR 30 DAYS Not-Taking FreeStyle Sae 2 [place] - Device USE TO CHECK BLOOD SUGAR 4 TIMES DAILY Not-Taking Pantoprazole Sodium 20 MG Tablet Delayed Release TAKE 1 TABLET BY MOUTH 30 MINUTES BEFORE DINNER Not-Taking hydrOXYzine HCl 25 MG Tablet TAKE 1 TABLET BY MOUTH EVERY DAY AT BEDTIME NEEDED FOR 30 DAYS Not- Taking Albuterol Sulfate HFA 108 (90 Base) MCG/ACT Aerosol Solution INHALE 2 PUFFS INTO THE LUNGS TWICE DAILY Not-Taking amLODIPine Besylate 2.5 MG Tablet TAKE 1 TABLET BY MOUTH EVERY DAY FOR 30 DAYS Not-Taking Pravastatin Sodium 40 MG Tablet TAKE 1 TABLET BY MOUTH EVERY DAY DiscontinuedNovoLOG FlexPen 100 UNIT/ML Solution Pen-injector INJECT 2 UNITS 3 TIMES A DAY : FOR 150-199, 4 UNITS FOR 200-249,6 UNITS FOR 250-299,8 UNITS FOR 300-349, 10 UNITS FOR 350-399, 12 UNITS FOR 400 AND CALL Subcutaneous Discontinued NovoLOG FlexPen 100 UNIT/ML Solution Pen-injector INJECT 2 UNITS 3 TIMES A DAY : FOR 150-199, 4 UNITS FOR 200-249,6 UNITS FOR 250-299,8 UNITS FOR 300- 349, 10 UNITS FOR 350-399, 12 UNITS FOR 400 AND CALL Subcutaneous * Allergies: A spirin: AllergyGabapentin: AllergyOxycodone: AllergyPenicillin: yeast infection - AllergySulfa Antibiotics: Allergyno[Allergies Verified] Objective: * Vitals: T emp:96.8F, Oxygen sat %:98%, HR:116/min, BP:122/80mm Hg, Wt:203.4lbs, BMI:39.72Index, Ht: 60 in. * P ast Orders: Lab:Hemoglobin [id number] * Collection Date 10/07/2024 07/31/2024 Collection Time 11:15 AM 11:29 AM Order Date 10/07/2024 07/30/2024 Hemoglobin A1c/ Hemoglobin total 8.4 H (Ref Range: 4.8-5.6 %) 10.1 H (Ref Range: 4.8-5.6 %) ???Lab:Lipid Panel-[id number] (Order Date - 10/07/2024) (Collection Date & Time - 10/07/2024 11:15 AM)?ValueReference Range?Cholesterol, Dmteq453 100-199 - mg/dL?Obvhlhrqigimx594Q4-669 - mg/dL?HDL Aofwzbswsmf67 >39 - mg/dL?VLDL Cholesterol Dzc658-61 - mg/dL?LDL Chol Calc ([facility]) 700-99 - mg/dL ???Lab:Comp. Metabolic Panel [id number] (Order Date - 10/07/2024) (Collection Date & Time - 10/07/2024 11:15 AM)?ValueReference Range?Dwpdgfl637 H70-99 - mg/dL?OWM815-19 - mg/dL?Creatinine1.45H0.57-1.00 - mg/dL ?BUN/Creatinine Plrwn5I86-56 -?Nqotwu332536-827 - mmol/L ?Potassium4.03.5-5.2 - mmol/L?Dyukovrn921V91-976 - mmol/L ?Carbon Dioxide, Krltb22Q69-47 - mmol/L?Calcium9.18.7-10.3 - mg/dL ?Protein, Total6.86.0-8.5 - g/dL?Albumin4.13.9-4.9 - g/dL ?Globulin, Total2.71.5-4.5 - g/dL?Bilirubin, Total<0.20.0-1.2 - mg/dL?Alkaline Bkkvwfxqiix1799-255 - IU/L?AST (SGOT)230-40 - IU/L ?ALT (SGPT)200-32 - IU/L?bZOM56G>59 - mL/min/1.73 ???Lab:Albumin/Creatinine Ratio,Urine-[id number] (Order Date - 10/07/2024) (Collection Date & Time - 10/07/2024 11:15 AM)?ValueReference Range ?Creatinine, Urine80.4Not Estab. - mg/dL?Albumin, Urine6.6Not Estab. - ug/mL?Alb/Creat Tpdgp43-84 - mg/g creat * Examination: G eneral Examination: GENERAL APPEARANCE: W ell developed, well nourished, in no acute distress. MUSCULOSKELETAL: n ormal . HEAD: N ormocephalic, atraumatic. EYES: P upils equal, round, reactive to light and accommodation, sclera non-icteric. EARS: N ormal. ORAL CAVITY: N ormal. THROAT: C lear. OROPHARYNX N ormal. SINUSES N ormal. NECK/THYROID: N meggan supple, full range of motion, no cervical lymphadenopathy. SKIN: W arm and dry, no suspicious lesions. HEART: S 1, S2 normal regular rate and rhythm no murmurs, rubs, gallops . LUNGS: c lear anteriorly and posteriorly good air movement no wheezes, rales, rhonchi . BREASTS: _ _. ABDOMEN: S oft, nontender, nondistended, bowel sounds present, normal. EXTREMITIES: N ormal. PERIPHERAL PULSES: N ormal. NEUROLOGIC: N onfocal, appropriate m otor strength normal upper and lower extremities, sensory exam intact. Psychiatry N ormal. FEMALE GENITOURINARY: _ _. MALE GENITOURINARY: _ _. PODIATRIC: N ormal. Negative Turner _ ____. Assessment: * Assessment: 1. T ype 2 diabetes mellitus with other diabetic kidney complication - E11.29 (Primary) ? 2 . E ssential (primary) hypertension - I10 3 . M ixed hyperlipidemia - E78.2 4 . H ypertensive chronic kidney disease with stage 1 through stage 4 chronic kidney disease, or unspecified chronic kidney disease - I12.9 5 . C hronic kidney disease, stage 3b - N18.32 6 . O ther obesity due to excess calories - E66.09 7 . D ietary counseling and surveillance - Z71.3 8 . Generalized anxiety disorder - F41.1 9 . I nsomnia, unspecified - G47.00 Jane age [age] years old lady with DM type II, hypertension, mixed hyperlipidemia, chronic kidney disease stage IIIb, obesity, generalized anxiety disorder/depression is here today for follow-up on blood work. Plan is as follows Diabetes mellitus type 2 with nephropathy. A1c is 8 which has improved but goal A1c is under 7. Continue long-acting insulin 50 units and increase by 2 units every 3 days for goal blood sugars of less than 130 in the morning and postprandial less than 180. She is also on sliding scale and Tradjenta 5 mg daily. We added Mounjaro 2.5 mg every weekly and recheck hemoglobin A1c in 3 months. She is seen tellers supervisor in the past 1 year. Hypertension/hyperlipidemia. She is normotensive and she is on Crestor 20 mg daily LDL within recommended range. Chronic kidney disease stage IIIb. Stable at this point and she does not appear to be in volume overload. She follows up with tonger on a regular basis. Generalized anxiety disorder/depression/insomnia. She is stable on sertraline 25 mg daily and she is also on mirtazapine 7.5 mg daily Obesity. Dietary recommendation and advised regular exercise. Goal is to lose 6 pounds a month. Check A1c before next appointment Plan: * Treatment: * Procedure Codes: 3 079F DIAST BP 80-89 MM [id number] SYST BP LT 130 MM HG * Follow Up: 3 Months * Images: * Sign off status: Completed true * Provider: Kyra ANGELES MD Date: 10/08/2024 Generated for Mauricio hernandez/Mima/Dianaitting on: 10/10/2024 12:37 PM EDT History and Physical Notes * HPI (History of Present Illness) Category Sub-Category Detail Notes Category Not es Internal Medicine Ms. Garcia is a 69-year-old lady with chronic migraine headaches followed by Dr. Noriega, anxiety/depression, CKD stage III followed BY [facility] nephrology, neurogenic bladder, hyperlipidemia, hypertension and type II diabetes mellitus here for follow-up on blood work. Her hemoglobin A1c is 10.1 and dropped down to 8 which is significant improvement. She did not experience any hypoglycemic episodes. She is trying to modify her eating habits. She is also trying to increase her physical activity and exercise. She is on continuous glucose monitoring device. She follows up with tellers supervisor. Vision and hearing are stable. . Follows with opthalm every year. Dental every 6-months. Does not see Social Worker Psychiatric, no supecious lesions at this point. She is physically active and she walks 30 minutes everyday. Her weight is stable. Mood is stable on Sertraline. She uses a CPAP. No GI symptoms. She denies any other active issues or concerns. Examination Category Sub-Category Detail Notes Category Not es General Examination GENERAL APPEARANCE: Well dev eloped, well nourished, in no acute distress HEAD: Normocephalic, atrau matic EYES: Pupils equal, round, reactive to light and accommodation, sclera non-icteric EARS: Normal THROAT: Clear NECK/THYROID: Neck supple, full ra nge of motion, no cervical lymphadenopathy HEART: S1, S2 normal regula r rate and rhythm no murmurs, rubs, gallops LUNGS: clear anteriorly and posteriorly good air movement no wheezes, rales, rhonchi ABDOMEN: Soft, nontender, non distended, bowel sounds present, normal NEUROLOGIC: Nonfocal, appropriat e motor strength normal upper and lower extremities, sensory exam intact SKIN: Warm and dry, no sara picious lesions EXTREMITIES: Normal PERIPHERAL PULSES: Normal BREASTS: __ MUSCULOSKELETAL: normal MALE GENITOURINARY: __ FEMALE GENITOURINARY: __ ORAL CAVITY: Normal PODIATRIC: Normal Psychiatry Normal OROPHARYNX Normal SINUSES Normal Negative Turner
--- NOTE | 2024-10-10 12:13 | EEG_ITS ---
This is a 16 channel EEG with an EKG lead. Patient is reported awake during the tracing. Background EEG rhythm is 10-14 hertz 5-50 microvolt posteriorly lower amplitude fast anteriorly. Photic stimulation does not produce any significant abnormality. Hyperventilation is not performed. Cardiac lead does not reveal any significant abnormality. No sharp wave spikes or paroxysmal tendency noted. Impression: Unremarkable EEG. MTDD
--- OUTSIDE RECORDS SUMMARY | 2024-10-10 12:38 | XMS_ITS | Clinical Summary ---
Author Organization [facility] Address [address] [place] [address] Care Team Providers Care Hide Handler Name Role Phone Unavailable Primary Care Provider Unavailabl e Social History Tobacco Use Types Packs/Day Years Used Date Smoking Tobacco: Never Assessed Sex and Gender Information Value Date Recorded Sex Assigned at Not on file Gender Identity Not on file Sexual Orientation Not on file Plan of Treatment Not on file
--- OUTSIDE RECORDS SUMMARY | 2024-10-10 12:38 | XMS_ITS | Clinical Summary ---
Author Organization [facility] Address [address] [place] [address] Care Team Providers Care [employer] Professor Name Role Phone Unavailable Primary Care Provider [...]
--- OUTSIDE RECORDS SUMMARY | 2024-10-10 12:38 | XMS_ITS | Clinical Summary ---
Author Organization [facility] Address [address] [place] [phone] Phone Care Team Providers Care Asset Liability Analyst Name Role Phone Diego Dacosta MD Primary Care Provider [phone] Allergies Active Allergy Reactions Criticality Noted Date [...] Only [facility] [address] [place] [address] Dano Lucas MD Stage 3b chronic kidney disease (HCC) 07/19/2024 Orders Only [facility] [address] [place] [phone] Dano Lucas MD Stage 3b chronic kidney [...] Visit [facility] [address] [phone] Dano Lucas MD [address] [phone] Health Maintenance Due Date Last Done Comments Breast Cancer Screening 1955 Pneumococcal Vaccine: 50+ Years (1 of 2 - PCV) 06/09/1975 Colorectal Cancer Screening: Annual FOBT 2005 Colorectal Cancer Screening: Colonoscopy 2005 Colorectal Cancer Screening: Sigmoidoscopy 2005 Diabetes: Ophthalmology Exam 12/19/2023 Diabetes: Pedal Pulse Checked 12/19/2023 Diabetes: Sensory Foot Exam 12/19/2023 Diabetes: Visual Foot Exam 12/19/2023 Influenza Vaccine (#1) 2024 Diabetes: Hemoglobin A1C 01/07/2025 025, 05/21/2021 Hepatitis B Vaccine Aged Out 09/16/2024 No longe r eligible based on patient's age to complete this topic Procedures Procedure Name Priority Date/Time Associated Diagnosis Comments PHOSPHATE ( PHOSPHORUS) Routine 10/07/2024 11:14 AM EDT Stage 3b chronic kidney disease (HCC) MAGNESIUM Routine 10/07/2024 11:14 AM EDT Stage 3b chronic kidney disease (HCC) PTH, INTACT Routine 10/07/2024 11:14 AM EDT Stage 3b chronic kidney disease (HCC) VITAMIN D 25 HYDROXY Routine 10/07/2024 11:14 AM EDT Stage 3b chronic kidney disease (HCC) URINE ALBUMIN / CREATININE RATIO Routine 10/07/2024 11:14 AM EDT Stage 3b chronic kidney disease (HCC) URINALYSIS WITH MICROSCOPIC Routine 10/07/2024 11:14 AM EDT Stage 3b chronic kidney disease (HCC) BASIC METABOLIC PANEL Routine 10/07/2024 11:14 AM EDT Stage 3b chronic kidney disease (HCC) CBC AND DIFFERENTIAL Routine 10/07/2024 11:14 AM EDT Stage 3b chronic kidney disease (HCC) HEMOGLOBIN A1C Routine 10/07/2024 11:14 AM EDT Stage 3b chronic kidney disease (HCC) IRON PANEL (FE, TIBC, TSAT) Routine 10/07/2024 11:14 AM EDT Stage 3b chronic kidney disease (HCC) FERRITIN Routine 10/07/2024 11:14 AM EDT Stage 3b chronic kidney disease (HCC) URIC ACID Routine 10/07/2024 11:14 AM EDT Stage 3b chronic kidney disease (HCC) PROTEIN / CREATININE RATIO, URINE Routine 10/07/2024 11:14 AM EDT Stage 3b chronic kidney disease (HCC) CYSTATIN C WITH EGFR Routine 10/07/2024 11:14 AM EDT Stage 3b chronic kidney disease (HCC) MICROSCOPIC EXAMINATION - DO NOT USE Routine 10/07/2024 11:14 AM EDT from Last 3 Months Results * (ABNORMAL) Cystatin C w/GFR (10/07/2024 11:14 AM EDT) Cystatin C 1.51(H) 0.72 - 1.16 mg/L [facility] eGFR by Cystatin C 41(L) >59 mL/min/1.7 3 [facility] 10/07/2024 11:1 4 AM EDT 10/07/2024 Dano Lucas MD LAB BLOOD ORDERABLES Final Result Performing Organization Address City/[facility]/ZIP Co de Phone Number [facility] [address] [place] [phone] * (ABNORMAL) Microscopic Examination (10/07/2024 11:14 AM EDT) WBC, Urine >30(A) 0 - 5 /hpf [facility] RBC, Urine None seen 0 - 2 /hpf [facility] Squamous Epithelial, Urine 0-10 0 - 10 /hpf [facility] Casts None seen None seen /lpf [facility] Bacteria, Urine Many(A) None seen/Few [facility] 10/07/2024 11:1 4 AM EDT 10/07/2024 Dano Lucas MD LAB MICROBIOLOGY - GE NERAL ORDERABLES Final Result Vertical Acuity [facility] [address] [place] [address] * (ABNORMAL) Iron Panel (Fe, TIBC, TSAT) (10/07/2024 11:14 AM EDT) TIBC 214(L) 250 - 450 ug/dL [facility] UIBC 144 118 - 369 ug/dL [facility] Iron 70 27 - 139 ug/dL [facility] Iron Saturation (TSat) 33 15 - 55 % [facility] Blood specimen (specimen) Venous blood / Unknown 10/07/2024 11:14 AM EDT 10/07/2024 Dano Lucas MD LAB BLOOD ORDERABLES Final Result [facility] [address] [place] [address] * (ABNORMAL) Protein, Total, Random Urine w/Creatinine (Protein/Creat Ratio) (10/07/2024 11:14 AM EDT) Creatinine, Ur 85.6 Not Estab. mg/dL [facility] Protein, Ur 24.1 Not Estab. mg/dL [facility] Urine Protein/Creati nine Ratio 282(H) 0 - 200 mg/g creat [facility] Urine specimen (specimen) Urine specimen obtained by clean catch procedure / Unknown 10/07/2024 11:14 AM EDT 10/07/2024 us Dano Lucas MD LAB URINE ORDERABLES Final Result [facility] [address] [place] [address] * Urine Albumin / Creatinine Ratio (10/07/2024 11:14 AM EDT) Albumin, Urine 6.9 Not Estab. ug/mL [facility] Albumin/Creatin ine Ratio 8 0 - 29 mg/g creat [facility] Comment: Normal: 0 - 29 Moderately increased: 30 - 300 Severely increased: >300 Urine specimen (specimen) Urine specimen obtained by clean catch procedure / Unknown 10/07/2024 11:14 AM EDT 10/07/2024 Dano Lucas MD LAB URINE ORDERABLES Final Result [facility] [address] [place] [address] * (ABNORMAL) Vitamin D 25 Hydroxy (10/07/2024 11:14 AM EDT) Vitamin D, 25-OH, Total 23.8(L) 30.0 - 100.0 ng/mL [facility] Comment: Vitamin D deficiency has been defined by the [place] of Medicine and an Endocrine Society practice guideline as a level of serum 25-OH vitamin D less than 20 ng/mL (1,2). The Endocrine Society went on to further define vitamin D insufficiency as a level between 21 and 29 ng/mL (2). 1. IOM ([place] of Medicine). 2010. Dietary reference intakes for calcium and D. [place]: The National Academies Press. 2. Gina MF, Hafsa NC, Tori LUCAS, et al. Evaluation, treatment, and prevention of vitamin D deficiency: an Endocrine Society clinical practice guideline. JCEM. 2010; 96(7):1911-30. Blood specimen (specimen) Venous blood / Unknown 10/07/2024 11:14 AM EDT 10/07/2024 Dano Lucas MD LAB BLOOD ORDERABLES Final Result [facility] [address] [place] [address] * (ABNORMAL) Urinalysis with microscopic (10/07/2024 11:14 AM EDT) Specific Paden, Urine 1.012 1.005 - 1.030 [facility] pH Urine 6.5 5.0 - 7.5 [facility] Color, Urine Yellow Yellow [facility] Appearance Urine Cloudy(A) Clear [facility] WBC Esterase Urine 3+(A) Negative [facility] Protein, Ur Negative Negative/Tra ce [facility] [phone] Glucose, Ur Negative Negative [facility] Ketones, Urine Negative Negative [facility] Blood Urine Negative Negative [facility] Bilirubin Urine Negative Negative [facility] Urobilinogen Urine 0.2 0.2 - 1.0 mg/dL [facility] Nitrite, Urine Negative Negative [facility] Microscopic Examination See below: [facility] [phone] Comment:Microscopic was alize cated and was performed. Urine specimen (specimen) Urine specimen obtained by clean catch procedure / Unknown 10/07/2024 11:14 AM EDT 10/07/2024 Dano Lucas MD LAB URINE ORDERABLES Final Result [facility] [address] [place] [address] * CBC and Differential (10/07/2024 11:14 AM EDT) [facility] WBC 8.4 3.4 - 10.8 x10E3/uL [facility] RBC 4.32 3.77 - 5.28 x10E6/uL [facility] Hemoglobin 13.2 11.1 - 15.9 g/dL [facility] Hematocrit 39.4 34.0 - 46.6 % [facility] MCV 91 79 - 97 fL [facility] MCH 30.6 26.6 - 33.0 pg [facility] MCHC 33.5 31.5 - 35.7 g/dL [facility] RDW 13.1 11.7 - 15.4 % [facility] Platelets 261 150 - 450 x10E3/uL [facility] Neutrophils Relative 54 Not Estab. % [facility] Lymphocytes Relative 36 Not Estab. % [facility] Monocytes 6 Not Estab. % [facility] Eosinophils Relative 2 Not Estab. % [facility] Basophils Relative 1 Not Estab. % [facility] Neutrophils Absolute 4.7 1.4 - 7.0 x10E3/uL [facility] Lymphocytes Absolute 3.0 0.7 - 3.1 x10E3/uL [facility] Monocytes Absolute 0.5 0.1 - 0.9 x10E3/uL [facility] Eosinophils Absolute 0.2 0.0 - 0.4 x10E3/uL [facility] Basophils Absolute 0.1 0.0 - 0.2 x10E3/uL [facility] Immature Granulocytes 1 Not Estab. % [facility] Immature Grans (Absolute) 0.0 0.0 - 0.1 x10E3/uL [facility] Blood specimen (specimen) Venous blood / Unknown 10/07/2024 11:14 AM EDT 10/07/2024 Dano Lucas MD LAB BLOOD ORDERABLES Final Result [facility] [address] [place] [address] * Uric Acid (10/07/2024 11:14 AM EDT) Uric Acid 6.5 3.0 - 7.2 mg/dL [facility] Comment:Therapeutic target f or gout patients: <6.0 Blood specimen (specimen) Venous blood / Unknown 10/07/2024 11:14 AM EDT 10/07/2024 Dano Lucas MD LAB BLOOD ORDERABLES Final Result Performing Organization Address City/[facility] Co de Phone Number [facility] [address] [place] [address] * Phosphorus (10/07/2024 11:14 AM EDT) Phosphorus 3.3 3.0 - 4.3 mg/dL [facility] Blood specimen (specimen) Venous blood / Unknown 10/07/2024 11:14 AM EDT 10/07/2024 Dano Lucas MD LAB BLOOD ORDERABLES Final Result [facility] [address] [place] [address] * PTH, Intact (10/07/2024 11:14 AM EDT) Pathologist [facility] PTH 49 15 - 65 pg/mL [facility] Blood specimen (specimen) Venous blood / Unknown 10/07/2024 11:14 AM EDT 10/07/2024 Dano Lucas MD LAB BLOOD ORDERABLES Final Result [facility] [address] [place] [address] * Magnesium (10/07/2024 11:14 AM EDT) Pathologist [facility] Magnesium 1.8 1.6 - 2.3 mg/dL [facility] Blood specimen (specimen) Venous blood / Unknown 10/07/2024 11:14 AM EDT 10/07/2024 Dano Lucas MD LAB BLOOD ORDERABLES Final Result Performing Organization Address City/[facility]/ZIP Co de Phone Number [facility] [address] [place] [address] * (ABNORMAL) Hemoglobin A1c (10/07/2024 11:14 AM EDT) Pathologist [facility] Hemoglobin A1C 8.2(H) 4.8 - 5.6 % [facility] Comment: Prediabetes: 5.7 - 6.4 Diabetes: >6.4 Glycemic control for adults with diabetes: <7.0 Blood specimen (specimen) Venous blood / Unknown 10/07/2024 11:14 AM EDT 10/07/2024 us Dano Lucas MD LAB BLOOD ORDERABLES Final Result [facility] [address] [place] [address] * (ABNORMAL) Ferritin (10/07/2024 11:14 AM EDT) Pathologist [facility] Ferritin 213(H) 15 - 150 ng/mL [facility] Blood specimen (specimen) Venous blood / Unknown 10/07/2024 11:14 AM EDT 10/07/2024 us Dano Lucas MD LAB BLOOD ORDERABLES Final Result [facility] [address] [place] [address] * (ABNORMAL) Basic Metabolic Panel (10/07/2024 11:14 AM EDT) Pathologist [facility] Glucose 127(H) 70 - 99 mg/dL [facility] BUN 10 8 - 27 mg/dL [facility] Creatinine 1.46(H) 0.57 - 1.00 mg/dL [facility] eGFR CKD-EPI CR 2020 39(L) >59 mL/min/1.7 3 [facility] BUN/Creatinine Ratio 7(L) 12 - 28 [facility] Sodium 142 134 - 144 mmol/L [facility] Potassium 4.0 3.5 - 5.2 mmol/L [facility] Chloride 108(H) 96 - 106 mmol/L [facility] Bicarbonate (CO2) 17(L) 20 - 29 mmol/L [facility] Calcium 9.1 8.7 - 10.3 mg/dL [facility] Blood specimen (specimen) Venous blood / Unknown 10/07/2024 11:14 AM EDT 10/07/2024 Dano Lucas MD LAB BLOOD ORDERABLES Final Result [facility] [address] [place] [address] from Last 3 Months Insurance [place] [facility] Medicare Care Teams Asset Liability Analyst Relationship Specialty Start Date End Date Diego Dacosta MD [address] [place] [address] PCP - General Internal Medicine 12/06/21
--- OUTSIDE RECORDS SUMMARY | 2024-10-10 12:38 | XMS_ITS | Patient Health Record ---
Author Organization [facility] Address [address] [place] [address] Care Team Providers Care Salt Plant Operator Name Role Phone DOREEN ANGELES Primary Care Provider Iban Hilliard [phone] Allergies Allergen (clinical drug ingredient) Drug/Non Drug [...] Risk Notes Problem Diverticular disease of colon (629384801) Diverticulosis of large intestine without perforation or abscess without bleeding (K57.30) Active confirmed Problem Dysphagia (23121794) Dysphagia (R13.10) Active confirmed Problem [id number] Screening for colon cancer (Z12.11) Active confirmed Problem 68444445 Esophageal dysphagia (R13.19) Active confirmed Plan Of Treatment Pending Test Test Name Order Date XR BARIUM SWALLOW-ESOPHAGUS 02/21/2023 [place] barium swallow 05/12/2023 Future Test Test Name Order Date UPPER GI ENDOSCOPY BALLOOON DILATION OF ESOPH 07/19/2022 COLONOSCOPY 07/19/2022 Insurance Providers Payer Name Payer Address Payer Phone Subscriber Number Group Number Insured Name Patient Relationship to Insured Coverage Start Date Coverage End Date [facility] [address] [address] [place] [phone] [id number] AURELIA GARCIA Self - patient is the insured Medical (General) History Medical History History ICD Code IDDM CKD STAGE III--sees Dr. Christian Reports a negative colonoscopy at age 51 Denies NM,CVA,Lung disease Migraines Hyperlipidemia Kidney stones Uterine fibroids [...]
== END 2024-10-10 12:16 | disposition home or self-care (01) ==
LOC: HO.NEURO 12:15
PROVIDERS: PCP Hospitalist; Visit Provider Registered Nurse
DX: R55 Syncope and collapse (principal)
CPT/HCPCS: 95816

== ENCOUNTER → 2024-10-10 12:15 | Outpatient (BNV) | payer OTHER, MEDICAID, SELFPAY | PROVIDERS: PCP Hospitalist; Visit Provider Psychiatry & Neurology Neurology | DX: R55 Syncope and collapse (principal) | CPT/HCPCS: 95816 ==

== ENCOUNTER 2024-10-15 12:11 | Outpatient (AMB) | payer OTHER, MEDICAID, SELFPAY ==
--- NOTE | 2024-10-15 12:15 | MHC.OFFVIS ---
Intake Visit Reasons: Results Allergies aspirin Allergy (Intermediate, Verified 10/15/24 12:23) rash gabapentin Allergy (Intermediate, Verified 10/15/24 12:23) rash oxycodone (Percodan) Allergy (Intermediate, Verified 10/15/24 12:23) rash sulfur Allergy (Unknown, Verified 10/15/24 12:23) rash Medication List - Last Reconciled 10/15/24 by Heidi Akbar CNP amitriptyline 150 mg PO BEDTIME duloxetine 60 mg PO DAILY insulin lispro (Humalog KwikPen (U-100) Insulin) 1 sliding scale dose subcut USEASDIRECTD magnesium oxide 300 mg PO DAILY ondansetron HCl 4 mg PO DAILY pregabalin (Lyrica) 75 mg PO BEDTIME sumatriptan succinate 100 mg PO Q2-4H PRN tirzepatide (Mounjaro) 2.5 mg subcut QWEEK tizanidine 4 mg PO TID PRN topiramate (Topamax) 100 mg PO BID verapamil 80 mg PO BID zolpidem (Ambien) 10 mg PO BEDTIME PRN HPI Comments Details: Headaches were less severe with increased dose of verapamil, but happening almost every day. Pain could be pressure behind eyes, to back of head, or frontal with photophobia, sonophobia, and nausea. Triggers include not eating at regular times. She was also having some blurred vision and occasional dizziness with headaches. She was under some stress as she was starting to pack up her house and was planning to move to [place] in 04/2025. Balance was off at times, but no recent falls. No episodes of syncope. She did not get Holter monitor done. No palpitations. She was sleeping about 4-5 hours with medication. If she heard a noise, it would wake her and she had trouble falling back to sleep. Headaches were happening about 3x/week with verapamil 40mg twice a day. Fell down stairs and hit head on banister in 07/2024. She does not remember falling or how fall happened. Her son helped her get up. She was a little confused and tired afterward and slept for 3-4 hours. She may have bit her tongue as her tongue hurt. No incontinence. She did not go to ER. No increase in headaches. No nausea or vomiting. No change in vision. She also fell yesterday 07/30/2024 trying to avoid puddle while crossing street and landed on left side, needed help getting up. She saw PCP who ordered XRs. She noticed she has been stuttering more and losing train of thought more since the fall. She sometimes has heart palpitations. Lot of anxiety and stress as her house is under foreclosure. Her younger sister is looking at apartments for her in [place].? Previously, headaches were almost every day, usually to left side of head, starting in back and going up behind left eye. Pain can either be dull, pressure, or throbbing-type, lasting from 45-minutes to hours. Associated with photophobia, sonophobia, nausea, and vomiting. Does not sleep well at night. Feels irritable. Lot of anxiety, cannot relax. Feels like she may cry at any time and does not like to leave house. Was given few lorazepam by PCP which help. Cold and heat may trigger headaches. In the past, every day headaches short head pains for 3 minutes moving to various spots in the scalp over small area, most commonly right occipital. Sleep is broken, gets up to use bathroom every 60-90 minutes. Dry mouth from medications. Has had migraine-type headaches since age 16 that are stress-induced and may occur once a week. Most nights she does not get restful sleep. Also treated for chronic muscle and joint pains that were diagnosed as fibromyalgia by clinical data assistant about 10 years ago. Has been on propranolol 80mg day for 2 years without significant improvement in headache. Also has stage III chronic kidney disease. [facility] Medical History (Updated 10/15/24 @ 12:39 by Heidi Akbar CNP) Migraines Hearing loss in right ear Chronic daily headache Kidney stones Carpal tunnel syndrome, bilateral upper limbs Status migrainosus Anxiety disorder Tension headache Fibromyalgia Insomnia Acoustic neuroma Depression with anxiety Chronic kidney disease, stage 3 High cholesterol Morbid obesity Diabetes Calcaneal spur of both feet Osteoarthritis of feet, bilateral Surgical History (Updated 10/14/24 @ 19:18 by Neris Alegria MA) H/O partial thyroidectomy History of section History of appendectomy Family History (Updated 10/14/24 @ 19:18 by Neris Alegria MA) Mother Osteoarthritis Rheumatoid arthritis Headache Social History Household Members: Children and Other Household Members Other:: grandson Alcohol intake: never Patient Tobacco Use Status: Never used Tobacco Current occupational status: employed 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[employer] Review of Systems Const Denies chills, Denies daytime sleepiness, Reports difficulty sleeping, Denies fatigue, Denies fever(s), Denies frequent falls, Reports headache(s), Denies increased appetite, Denies poor appetite, Denies snoring, Denies weakness, Denies weight gain and Denies weight loss Eyes Reports blurry vision ENT Reports Normal hearing present, Denies vertigo, Reports dizziness, Reports headache(s) and Denies neck pain Card Denies chest pain at rest, Denies chest pain with activity, Denies syncope, Denies leg edema, Denies palpitations, Denies dyspnea and Denies dyspnea on exertion Resp Denies cough, Denies dyspnea, Denies dyspnea on exertion and Denies snoring GI Denies abdominal pain, Denies constipation, Denies heartburn, Denies diarrhea and Reports nausea Denies urinary frequency, Denies urinary incontinence and Denies urinary urgency Musc Denies abnormal gait, Denies back pain, Reports myalgias, Denies arthralgias, Denies neck pain, Denies numbness, Denies stiffness and Denies tingling Neuro Reports Normal hearing present, Denies Abnormal speech present, Denies abnormal gait, Denies vertigo, Reports dizziness, Denies syncope, Denies frequent falls, Reports headache(s), Denies lack of coordination, Denies memory loss, Denies numbness, Denies Other visual disturbances, Denies restless legs, Denies seizure-like activity, Denies tingling, Denies paresthesias, Denies tremor(s) and Denies weakness Psych Reports anxiety, Denies depression, Denies memory loss, Denies visual hallucinations, Denies hallucinations and Reports other (stress) Endo Denies fatigue and Denies palpitations Physical Exam Const Other: General Appearance:? normal, in no acute distress. Heart:? S1, S2 normal, no murmurs. Lungs:? clear anteriorly and posteriorly. Musculoskeletal:? normal. Extremities:? no edema. Psych:? alert, oriented, cognitive function intact, cooperative with exam. Neuro Other: Abnormal Neurological Findings:?none.? Mental Status: alert and oriented X 3. Normal attention, orientation, memory, and affect. Cranial Nerves: Pupils are equal, round, and reactive to light. External ocular muscles are intact. Visual peralta are full, no ptosis. Face is symmetrical, no facial weakness or droop. Facial sensations are normal. Tongue protrudes in midline. Palate elevates symmetrically. Shoulder shrugging is normal Motor Examination: Normal muscle tone, bulk and strength. No atrophy or fasciculations. No drift of the extended upper extremities. DTR 2+. Plantars are flexor. Straight Leg Raisin degrees. Sensory Exam: Normal light touch, temperature, pinprick, vibration, and joint-position sensations. Rhomberg sign is absent. Coordination: No ataxia. No titubation. Xiqmxq-vw-aadi, ojgm-bxbc-aojt test, and rapid alternating movements were normal. Gait Exam: Within normal limits. Cerebellar Signs: Ghrkxy-lo-yymm and euwp-ez-lnve is normal. No dysdiadochokinesia. Extrapyramidal System: No tremor, rigidity with normal facial expressions. No bradykinesia. No bradyphrenia. Normal arm swing and posture. No propulsion or retropulsion. Speech: Normal. No dysphasia or dysarthria. Cranial nerves: Yes Normal hearing present Speech: No Abnormal speech present Results Reviewed Results Reviewed: 09/13/2024 EEG: [address] [address] [address] Scan Report Signed Patient: Jane Nuñez MR#: [id number] : 1955 Acct:[id number] Age/Sex: 69 / F ADM Date: 10/07/24 Loc: HO.CT Attending Dr: Heidi Akbar CNP Ordering Physician: Heidi Akbar CNP Date of Service: 10/07/24 Procedure(s): CT head/brain wo IV con Accession Number(s): [id number] cc: Yanique Dacosta MD; Heidi Akbar CNP~ Report Number: [id number]: Total DLP = 733.00 mGy-cm EXAMINATION: CT HEAD WITHOUT CONTRAST CLINICAL INFORMATION: Syncope COMPARISON: MRI dated August 21, 2017 TECHNIQUE: Contiguous axial imaging was performed from the skull base to vertex without intravenous administration of contrast. This CT examination was performed using dose optimization techniques as appropriate, variously including the following: *Automated exposure control *Adjustment of mA and/or kV according to patient size (this includes techniques or standardized protocols for targeted exams where dose is matched to indication/reason for exam; i.e. extremities or head) *Use of iterative reconstruction technique DLP: 733 mGY*cm FINDINGS: There is no acute ischemic change. There is no intracranial hemorrhage. There is no mass-effect or midline shift. Basal cisterns and ventricles are within normal limits for age/cerebral volume. Orbits are symmetrical and unremarkable. Paranasal sinuses and mastoid air cells are pneumatized. There are no bony abnormalities. CT/CT head/brain wo IV con IMPRESSION: No acute intracranial abnormality. Assessment & Plan Assessment & Plan (1) Migraines: Code(s): G43.909 - Migraine, unspecified, not intractable, without status migrainosus Category: Medical Qualifiers: Migraine type: unspecified Status migrainosus presence: without status migrainosus Intractability: not intractable Qualified Code(s): G43.909 - Migraine, unspecified, not intractable, without status migrainosus Plan: Verapamil did not help and medication was stopped. She tried and failed propranolol, topiramate, amitriptyline, verapamil, and cyclobenzaprine. Start Ajovy, use/side effects reviewed. Continue topiramate 100mg 1 tablet twice a day (2) Tension headache: Code(s): G44.209 - Tension-type headache, unspecified, not intractable Category: Medical Plan: Continue amiriptyline 150mg 1 tablet at bedtime (3) Insomnia: Code(s): G47.00 - Insomnia, unspecified Category: Medical Qualifiers: Insomnia type: unspecified Qualified Code(s): G47.00 - Insomnia, unspecified Plan: Continue zolpidem 10mg 1 tablet at bedtime (4) Syncope: Code(s): R55 - Syncope and collapse Category: Medical Qualifiers: Syncope type: unspecified Qualified Code(s): R55 - Syncope and collapse Plan: EEG and CT scan results reviewed. She did not have Holter done and test was requested again. Plan Meds tried: Propranolol, topiramate, amitriptyline, cyclobenzaprine, verapamil Orders: Orders ECG holter monitor 48 hour Today R55 - Syncope and collapse Medications: New fremanezumab-vfrm (Ajovy) administer as 3 consecutive 225 mg injections 225 mg (1.5 mL) subcut Q1M 1.5 mL 5RF 30 days Discontinued verapamil Discontinued Reason: Order 80 mg PO BID Coding Level of Care Code Est Pt Level 4 (86962) Diagnoses Migraine without status migrainosus, not intractable, unspecified migraine type G43.909 Migraine type: unspecified Status migrainosus presence: without status migrainosus Intractability: not intractable Tension headache G44.209 Insomnia, unspecified type G47.00 Insomnia type: unspecified Syncope, unspecified syncope type R55 Syncope type: unspecified
--- OUTSIDE RECORDS SUMMARY | 2024-10-15 12:59 | XMS_ITS | Patient Health Record ---
Author Organization [facility] Address [address] [place] [address] Care Team Providers Care Burr Filer Name Role Phone DOREEN ANGELES Primary Care Provider Iban Hilliard [phone] Allergies Allergen (clinical drug ingredient) Drug/Non Drug [...] Risk Notes Problem Diverticular disease of colon (195187435) Diverticulosis of large intestine without perforation or abscess without bleeding (K57.30) Active confirmed Problem Dysphagia (39399320) Dysphagia (R13.10) Active confirmed Problem 831380208 Screening for colon cancer (Z12.11) Active confirmed Problem 36800145 Esophageal dysphagia (R13.19) Active confirmed Plan Of Treatment Pending Test Test Name Order Date XR BARIUM SWALLOW-ESOPHAGUS 02/21/2023 [place] barium swallow 05/12/2023 Future Test Test Name Order Date UPPER GI ENDOSCOPY BALLOOON DILATION OF ESOPH 07/19/2022 COLONOSCOPY 07/19/2022 Insurance Providers Payer Name Payer Address Payer Phone Subscriber Number Group Number Insured Name Patient Relationship to Insured Coverage Start Date Coverage End Date [facility] [address] [address] [place] [phone] [id number] AURELIA GARCIA Self - patient is the insured Medical (General) History Medical History History ICD Code IDDM CKD STAGE III--sees Dr. Christian Reports a negative colonoscopy at age 51 Denies [place],CVA,Lung disease Migraines Hyperlipidemia Kidney stones Uterine fibroids [...]
--- OUTSIDE RECORDS SUMMARY | 2024-10-15 13:00 | XMS_ITS | Clinical Summary ---
Author Organization [facility] Address [address] [place] [phone] Phone Care Team Providers Care Marine Plumber Name Role Phone Diego Dacosta MD Primary Care Provider [phone] Allergies Active Allergy Reactions Criticality Noted Date [...] Only [facility] [address] [place] [address] Dano Lucas MD Stage 3b chronic kidney disease (HCC) 07/19/2024 Orders Only [facility] [address] [place] [phone] Dano Lucas MD Stage 3b chronic kidney [...] Visit [facility] [address] [phone] Dano Lucas MD [address] [phone] Health Maintenance Due Date Last Done Comments [...] Cystatin C 1.51(H) 0.72 - 1.16 mg/L [facility] eGFR by Cystatin C 41(L) >59 mL/min/1.7 3 [facility] 10/07/2024 11:1 4 AM EDT 10/07/2024 Dano Lucas MD LAB BLOOD ORDERABLES Final Result Performing Organization Address City/[facility]/ZIP Co de Phone Number [facility] [address] [place] [phone] * (ABNORMAL) Microscopic Examination (10/07/2024 11:14 AM EDT) WBC, Urine >30(A) 0 - 5 /hpf [facility] RBC, Urine None seen 0 - 2 /hpf [facility] Squamous Epithelial, Urine 0-10 0 - 10 /hpf [facility] Casts None seen None seen /lpf [facility] Bacteria, Urine Many(A) None seen/Few [facility] 10/07/2024 11:1 4 AM EDT 10/07/2024 Dano Lucas MD LAB MICROBIOLOGY - GE NERAL ORDERABLES Final Result [email or web address] [address] [place] [address] * (ABNORMAL) Iron Panel (Fe, TIBC, TSAT) (10/07/2024 11:14 AM EDT) TIBC 214(L) 250 - 450 ug/dL [facility] UIBC 144 118 - 369 ug/dL [facility] Iron 70 27 - 139 ug/dL [facility] Iron Saturation (TSat) 33 15 - 55 % [facility] Blood specimen (specimen) Venous blood / Unknown 10/07/2024 11:14 AM EDT 10/07/2024 Dano Lucas MD LAB BLOOD ORDERABLES Final Result [facility] [address] [place] [address] * (ABNORMAL) Protein, Total, Random Urine w/Creatinine (Protein/Creat Ratio) (10/07/2024 11:14 AM EDT) Creatinine, Ur 85.6 Not Estab. mg/dL [facility] Protein, Ur 24.1 Not Estab. mg/dL [facility] Urine Protein/Creati nine Ratio 282(H) 0 - 200 mg/g creat [facility] Urine specimen (specimen) Urine specimen obtained by clean catch procedure / Unknown 10/07/2024 11:14 AM EDT 10/07/2024 us Dano Lucas MD LAB URINE ORDERABLES Final Result [facility] [address] [place] [address] * Urine Albumin / Creatinine Ratio (10/07/2024 11:14 AM EDT) Albumin, Urine 6.9 Not Estab. ug/mL [facility] Albumin/Creatin ine Ratio 8 0 - 29 mg/g creat [facility] Comment: Normal: 0 - 29 Moderately increased: 30 - 300 Severely increased: >300 Urine specimen (specimen) Urine specimen obtained by clean catch procedure / Unknown 10/07/2024 11:14 AM EDT 10/07/2024 Dano Lucas MD LAB URINE ORDERABLES Final Result [facility] [address] [place] [address] * (ABNORMAL) Vitamin D 25 Hydroxy (10/07/2024 11:14 AM EDT) Vitamin D, 25-OH, Total 23.8(L) 30.0 - 100.0 ng/mL [facility] Comment: Vitamin D deficiency has been defined by the [place] of Medicine and an Endocrine Society practice guideline as a level of serum 25-OH vitamin D less than 20 ng/mL (1,2). The Endocrine Society went on to further define vitamin D insufficiency as a level between 21 and 29 ng/mL (2). 1. IOM ([place] of Medicine). 2010. Dietary reference intakes for [...] LAB BLOOD ORDERABLES Final Result [facility] [address] [place] [address] * (ABNORMAL) Urinalysis with microscopic (10/07/2024 11:14 AM EDT) Specific [place], Urine 1.012 1.005 - 1.030 [facility] pH Urine 6.5 5.0 - 7.5 [facility] Color, Urine Yellow Yellow [facility] Appearance Urine Cloudy(A) Clear [facility] WBC Esterase Urine 3+(A) Negative [facility] [phone] Protein, Ur Negative Negative/Tra ce [facility] Glucose, Ur Negative Negative [facility] [phone] Ketones, Urine Negative Negative [facility] Blood Urine Negative Negative [facility] Bilirubin Urine Negative Negative [facility] Urobilinogen Urine 0.2 0.2 - 1.0 mg/dL [facility] Nitrite, Urine Negative Negative [facility] Microscopic Examination See below: [facility] Comment:Microscopic was alize cated and was performed. Urine specimen (specimen) Urine specimen obtained by clean catch procedure / Unknown 10/07/2024 11:14 AM EDT 10/07/2024 Dano Lucas MD LAB URINE ORDERABLES Final Result [facility] [address] [place] [address] * CBC and Differential (10/07/2024 11:14 AM EDT) [facility] WBC 8.4 3.4 - 10.8 x10E3/uL [facility] RBC 4.32 3.77 - 5.28 x10E6/uL [facility] Hemoglobin 13.2 11.1 - 15.9 g/dL [facility] Hematocrit 39.4 34.0 - 46.6 % [facility] MCV 91 79 - 97 fL [facility] MCH 30.6 26.6 - 33.0 pg [facility] MCHC 33.5 31.5 - 35.7 g/dL [facility] RDW 13.1 11.7 - 15.4 % [facility] Platelets 261 150 - 450 x10E3/uL [facility] Neutrophils Relative 54 Not Estab. % [facility] Lymphocytes Relative 36 Not Estab. % [facility] Monocytes 6 Not Estab. % [facility] Eosinophils Relative 2 Not Estab. % [facility] Basophils Relative 1 Not Estab. % [facility] Neutrophils Absolute 4.7 1.4 - 7.0 x10E3/uL [facility] Lymphocytes Absolute 3.0 0.7 - 3.1 x10E3/uL [facility] Monocytes Absolute 0.5 0.1 - 0.9 x10E3/uL [facility] Eosinophils Absolute 0.2 0.0 - 0.4 x10E3/uL [facility] Basophils Absolute 0.1 0.0 - 0.2 x10E3/uL [facility] Immature Granulocytes 1 Not Estab. % [facility] Immature Grans (Absolute) 0.0 0.0 - 0.1 x10E3/uL [facility] Blood specimen (specimen) Venous blood / Unknown 10/07/2024 11:14 AM EDT 10/07/2024 Dano Lucas MD LAB BLOOD ORDERABLES Final Result [facility] [address] [place] [address] * Uric Acid (10/07/2024 11:14 AM EDT) Uric Acid 6.5 3.0 - 7.2 mg/dL [facility] Comment:Therapeutic target f or gout patients: <6.0 Blood specimen (specimen) Venous blood / Unknown 10/07/2024 11:14 AM EDT 10/07/2024 Dano Lucas MD LAB BLOOD ORDERABLES Final Result Performing Organization Address City/[facility] Co de Phone Number [facility] [address] [place] [address] * Phosphorus (10/07/2024 11:14 AM EDT) Phosphorus 3.3 3.0 - 4.3 mg/dL [facility] Blood specimen (specimen) Venous blood / Unknown 10/07/2024 11:14 AM EDT 10/07/2024 Dano Lucas MD LAB BLOOD ORDERABLES Final Result [facility] [address] [place] [address] * PTH, Intact (10/07/2024 11:14 AM EDT) Pathologist [facility] PTH 49 15 - 65 pg/mL [facility] Blood specimen (specimen) Venous blood / Unknown 10/07/2024 11:14 AM EDT 10/07/2024 Dano Lucas MD LAB BLOOD ORDERABLES Final Result [facility] [address] [place] [address] * Magnesium (10/07/2024 11:14 AM EDT) Pathologist [facility] Magnesium 1.8 1.6 - 2.3 mg/dL [facility] Blood specimen (specimen) Venous blood / Unknown 10/07/2024 11:14 AM EDT 10/07/2024 Dano Lucas MD LAB BLOOD ORDERABLES Final Result Performing Organization Address City/[facility]/ZIP Co de Phone Number [facility] [address] [place] [address] * (ABNORMAL) Hemoglobin A1c (10/07/2024 11:14 AM EDT) Pathologist [facility] Hemoglobin A1C 8.2(H) 4.8 - 5.6 % [facility] Comment: Prediabetes: 5.7 - 6.4 Diabetes: >6.4 Glycemic control for adults with diabetes: <7.0 Blood specimen (specimen) Venous blood / Unknown 10/07/2024 11:14 AM EDT 10/07/2024 us Dano Lucas MD LAB BLOOD ORDERABLES Final Result [facility] [address] [place] [address] * (ABNORMAL) Ferritin (10/07/2024 11:14 AM EDT) Pathologist [facility] Ferritin 213(H) 15 - 150 ng/mL [facility] Blood specimen (specimen) Venous blood / Unknown 10/07/2024 11:14 AM EDT 10/07/2024 us Dano Lucas MD LAB BLOOD ORDERABLES Final Result [facility] [address] [place] [address] * (ABNORMAL) Basic Metabolic Panel (10/07/2024 11:14 AM EDT) Pathologist [facility] Glucose 127(H) 70 - 99 mg/dL [facility] BUN 10 8 - 27 mg/dL [facility] Creatinine 1.46(H) 0.57 - 1.00 mg/dL [facility] eGFR CKD-EPI CR 2020 39(L) >59 mL/min/1.7 3 [facility] BUN/Creatinine Ratio 7(L) 12 - 28 [facility] Sodium 142 134 - 144 mmol/L [facility] Potassium 4.0 3.5 - 5.2 mmol/L [facility] Chloride 108(H) 96 - 106 mmol/L [facility] Bicarbonate (CO2) 17(L) 20 - 29 mmol/L [facility] Calcium 9.1 8.7 - 10.3 mg/dL [facility] Blood specimen (specimen) Venous blood / Unknown 10/07/2024 11:14 AM EDT 10/07/2024 Dano Lucas MD LAB BLOOD ORDERABLES Final Result [facility] [address] [place] [address] from Last 3 Months Insurance Medicaid [place] [facility] Medicare Care Teams Marine Plumber Relationship Specialty Start Date End Date Diego Dacosta MD [address] [place] [address] PCP - General Internal Medicine 12/06/21
--- OUTSIDE RECORDS SUMMARY | 2024-10-15 13:00 | XMS_ITS | Clinical Summary ---
Author Organization [facility] ity Address [address] [place] [address] Care Team Providers Care Senior Tax Accountant Name Role Phone Unavailable Primary Care Provider [...] 2023-2 5 season) 2023 Influenza Vaccine (#1) 2024 RSV Immunization Adult Patie nts (1 [...]
--- OUTSIDE RECORDS SUMMARY | 2024-10-15 13:00 | XMS_ITS | Patient Health Record ---
Author Organization [employer] [facility] Address [address] [place] [address] Care Team Providers Care Gore Stitcher Name Role Phone DOREEN ANGELES Primary Care Provider Bassam Barakat Unavailable [phone] Allergies Allergen (clinical drug ingredient) Drug/Non Drug [...] Active Results Component Value Reference Range Notes Comp. Metabolic Panel ([id number] Reviewed date:10/08/2024 05:55:14 PM Interpretation: Performing Lab:[facility], [address] [facility], [place], Phone - [phone], Director - [employer] Notes/Report: Glucose 128 70-99 mg/dL BUN 10 8-27 mg/dL Creatinine 1.45 0.57-1.00 mg/dL eGFR 39 >59 mL/min/1.73 BUN/Creatinine Ratio 7 12-28 Sodium 142 134-144 mmol/L Potassium 4.0 3.5-5.2 mmol/L Chloride 108 96-106 mmol/L Carbon Dioxide, Total 18 20-29 mmol/L Calcium 9.1 8.7-10.3 mg/dL Protein, Total 6.8 6.0-8.5 g/dL Albumin 4.1 3.9-4.9 g/dL Globulin, Total 2.7 1.5-4.5 g/dL Bilirubin, Total <0.2 0.0-1.2 mg/dL Alkaline Phosphatase 93 44-121 IU/L AST (SGOT) 23 0-40 IU/L ALT (SGPT) 20 0-32 IU/L Lipid Panel-[id number] Reviewed date:10/08/2024 05:55:10 PM Interpretation: Performing Lab:[facility], [address] [facility], Phone - [phone], Director - [place] Notes/Report: Cholesterol, Total 150 100-199 mg/dL Triglycerides 203 0-149 mg/dL HDL Cholesterol 46 >39 mg/dL VLDL Cholesterol [place] 34 5-40 mg/dL LDL Chol Calc (NIH) 70 0-99 mg/dL Albumin/Creatinine Ratio,Uri ne-[id number] Reviewed date:10/08/2024 05:55:06 PM Interpretation: Performing Lab:[facility], [address] [facility], Phone - [phone], Director - [place] Notes/Report: Creatinine, Urine 80.4 Not Estab. mg/dL Albumin, Urine 6.6 Not Estab. ug/mL Alb/Creat Ratio 8 0-29 mg/g creat Normal: 0 - 29 Moderately increased: 30 - 300 Severely increased: >300 Hemoglobin [id number] Reviewed date:10/08/2024 05:55:04 PM Interpretation: Performing Lab:[facility], [address] [facility], Phone - [phone], Director - [place] Notes/Report: Hemoglobin A1c 8.4 4.8-5.6 % . Prediabetes: 5.7 - 6.4 Diabetes: >6.4 Glycemic control for adults with diabetes: <7.0 Urine Culture, Routine-[id number] 7 Reviewed date:07/11/2024 03:53:28 PM Interpretation: Performing Lab:[facility], [address], [place], Phone - [phone], [facility]/Report: Clinical Information:SRC: Clinical Information:SRC: Urine Culture, [...] S Trimethoprim/Sulfa S Comp. Metabolic Panel ([id number] Reviewed date:08/05/2024 02:26:41 PM Interpretation: Performing Lab:[facility], [address] [facility], Phone - [phone], Director - MDMisha Notes/Report: Glucose 212 70-99 mg/dL BUN 15 [...] IU/L ALT (SGPT) 18 0-32 IU/L Lipid Panel-[id number] Reviewed date:08/05/2024 02:25:46 PM Interpretation: Performing Lab:[facility], [address] [place], [place], Phone - [phone], Director - [employer] Notes/Report: Cholesterol, Total 247 100-199 mg/dL Triglycerides 213 0-149 mg/dL HDL Cholesterol 48 >39 mg/dL VLDL Cholesterol [place] 39 5-40 mg/dL LDL Chol Calc (NIH) 160 0-99 mg/dL Albumin/Creatinine Ratio,Uri ne-[id number] Reviewed date:08/05/2024 02:26:06 PM Interpretation: Performing Lab:[facility] [place], [address] [place] [address], Phone - [phone], Director - [place] Notes/Report: Creatinine, Urine 199.2 Not Estab. mg/dL Albumin, Urine 11.6 Not Estab. ug/mL Alb/Creat Ratio 6 0-29 mg/g creat Normal: 0 - 29 Moderately increased: 30 - 300 Severely increased: >300 Vitamin D, 36-[id number] Reviewed date:08/05/2024 02:25:18 PM Interpretation: Performing Lab:[facility] [place], [address] [place] [address], Phone - [phone], Director - [place] Notes/Report: Vitamin D, 25-Hydroxy 22.4 30.0-100.0 ng/mL Vitamin D deficiency has been defined by the [place] of Medicine and an Endocrine Society practice guideline as a level of serum 25-OH vitamin D less than 20 ng/mL (1,2). The Endocrine Society went on to further define vitamin D insufficiency as a level between 21 and 29 ng/mL (2). 1. IOM ([place] of Medicine). 2010. Dietary reference intakes for calcium and D. [place]: The National Academies Press. 2. Gina MF, [place]af[place], Tori LUCAS, et al. Evaluation, treatment, and prevention of vitamin D deficiency: an Endocrine Society clinical practice guideline. JCEM. 2010; 96(7):1911-30. Hemoglobin [id number] Reviewed date:08/05/2024 02:25:32 PM Interpretation: Performing Lab:[facility] [place], [address] [place] [address], Phone - [phone], Director - [place] Notes/Report: Hemoglobin A1c 10.1 4.8-5.6 % . Prediabetes: 5.7 - 6.4 Diabetes: >6.4 Glycemic control for adults with diabetes: <7.0 Reason For Referral Reason left shoulder pain Diagnosis 1 Type 2 diabetes tory itus with other diabetic kidney complication (E11.29) Referral Organization [facility] Referring Provider First Name DOREEN Referring Provider Last Name BRIDGETTE Referring Provider Speciality Internal M edicine Referred Provider Specialty Orthopedic S urgery Referral Priority Routine Reason left shoulder pain Diagnosis 1 Type 2 diabetes tory itus with other diabetic kidney complication (E11.29) Referral Organization [facility] Referring Provider First Name LOGAN Referring Provider Last Name [facility] Referring Provider Speciality Internal edicine Referred Provider Specialty Physical The rapist Referral Priority Routine Reason repeat falls pleas e evaluate and treat Diagnosis 1 Repeated falls (R29. 6) Referral Organization [facility] Referring Provider First Name LOGAN Referring Provider Last Name SHITAL Referring Provider Speciality Internal edicine Referred Provider Specialty Physical The clem General Notes Referral was faxed t [facility]. Please contact patient for scheduling., Evonne Carrasco 07/10/2024 11:37:36 AM > Referral Priority Routine Reason C-scope Please karmen luate and treat Diagnosis 1 Encounter for screen ing for malignant neoplasm of colon (Z12.11) Referral Organization [facility] Referring Provider First Name Bassam Referring Provider Last Name Yuval Referred Provider Specialty Gastroentero logy General Notes Please call the [facility] ent to schedule the appointment, [facility] - [phone], Krista Breen 07/31/2024 03:53:19 PM > Referral Priority Routine Reason Evaluation and manag ement Diagnosis 1 Major depressive dis order, recurrent, mild (F33.0) Diagnosis 2 Generalized anxiety disorder (F41.1) Referral Organization [facility] Referring Provider First Name Bassam Referring Provider Last Name Yuval Referred Provider Specialty Mental healt h counseling General Notes Referral faxed to N - Pt needs to call [phone] for scheduling. Referral Priority Routine Reason Evaluation and manag ement Diagnosis 1 Obstructive sleep ap lyn (adult) (pediatric) (G47.33) Referral Organization [facility] Referring Provider First Name José Referring Provider Last Name Yuval Referred Provider Specialty Sleep Medici ne General Notes Referral sent to [facility] ([address] [place] [address] ) - Office will call patient for scheduling. Referral Priority Routine Medications Medication SIG (Take, Route, Frequency, Duration) Notes Start Date End Date Status LORazepam 0.5 MG 1 tablet 1/2 hour before flying Orally Once a day; Duration: 5 days 07/30/2024 Active Acetaminophen 8 Hour 650 MG 2 tablets as needed Orally every 8 hrs; Duration: 30 days 07/30/2024 Active Mounjaro 2.5 MG/0.5ML as directed Subcutaneous weekly; Duration: 30 days 10/08/2024 Active Fluticasone Propionate 50 MCG/ACT INSTILL 1 SPRAY INTO EACH NOSTRIL EVERY DAY FOR 30 DAYS; Duration: 90 Active HumaLOG KwikPen 100 UNIT/ML INJECT 2 UNITS 3 TIMES A DAY : FOR 150-199, 4 UNITS FOR 200-249,6 UNITS FOR 250-299,8 UNITS FOR 300-349, 10 UNITS FOR 350-399, 12 UNITS FOR 400 AND CALL MD Subcutaneous Subcutaneous; Duration: 30 days 08/09/2024 Active Pravastatin Sodium 40 MG TAKE 1 TABLET BY MOUTH EVERY DAY; Duration: 90 Not-Taking Myrbetriq 25 MG 1 tablet Orally Once a day WELL PULLER Not-Taking Zolpidem Tartrate 10 MG 1 tablet at bedtime as needed Orally Once a day Neurology: Not-Taking Macrobid 100 MG 1 capsule [...] e a day; Duration: 30 days Active Potassium Citrate ER 15 MEQ (1620 MG) TAKE 1 TABLET BY MOUTH WITH MEALS; Duration: 30 Not-Taking Amitriptyline HCl 50 MG 1 tablet at bedtime Orally Once a day; Duration: 30 day(s) Neurology: Not-Taking cycloSPORINE 0.05 % 1 drop into affected eye Ophthalmic Twice a day Not-Taking Topiramate 100 MG 1 tablet Orally Twic e a day; Duration: 30 day(s) Neurology: Not-Taking Sertraline HCl 25 MG TAKE 1 TABLET BY MOUTH EVERY DAY FOR 30 DAYS; Duration: 90 Active Tradjenta 5 MG 1 tablet Orally Once a day; Duration: 30 days 03/27/2024 Active FreeStyle Sae 14 Day Sensor - use to check blood sugar change every 14 days; Duration: 84 days Active amLODIPine Besylate 2.5 MG TAKE 1 TABLET BY MOUTH EVERY DAY FOR 30 DAYS; Duration: 90 Not-Taking Rosuvastatin Calcium 20 MG 1 tablet Orally Once a day; Duration: 30 days 08/07/2024 Active Albuterol Sulfate HFA 108 (90 Base) MCG/ACT INHALE 2 PUFFS INTO THE LUNGS TWICE DAILY; Duration: 90 Not-Taking hydrOXYzine HCl 25 MG TAKE 1 TABLET BY MOUTH EVERY DAY AT BEDTIME NEEDED FOR 30 DAYS; Duration: 90 Not-Taking Basaglar KwikPen 100 UNIT/ML INJECT 50 UNITS UNDER THE SKIN Subcutaneous once a day; Duration: 30 days Active Pantoprazole Sodium 20 MG TAKE 1 TABLET BY MOUTH 30 MINUTES BEFORE DINNER; Duration: 90 Not-Taking D-1000 Extra Strength 25 MCG (1000 UT) TAKE 1 TABLET BY MOUTH EVERY DAY; Duration: 90 Active FreeStyle Sae 2 [place] - USE TO CHECK BLOOD SUGAR 4 TIMES DAILY; Duration: 30 Not-Taking SUMAtriptan Succinate 100 MG 1 tablet as needed, may take second dose at least 2 hours after first dose up to 2 tablets per day as needed Orally Once a day; Duration: 30 days Active Vitamin C 500 MG TAKE 1 TABLET BY MOUTH EVERY DAY FOR 30 DAYS; Duration: 30 Not-Taking Immunizations Vaccine Route Administration Date Status Comme [...] W/U Status Risk Notes Problem Diabetic neuropathy (837450828) Diabetes mellitus due to underlying condition with diabetic neuropathy, unspecified (E08.40) Active confirmed Problem Diabetic renal disease (195470503) 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.29) Active confirmed Problem Morbid obesity (disorder) (366099806) Morbid (severe) obesity due to excess calories (E66.01) Active confirmed Problem Obesity due to excess calories (494347517) Other obesity due to excess calories (E66.09) Active confirmed Problem Mixed hyperlipidemia (814575284) Mixed hyperlipidemia (E78.2) Active confirmed Problem Mild recurrent major depression (43573061) Major depressive disorder, recurrent, mild (F33.0) Active confirmed Problem Generalized anxiety disorder (88971729) Generalized anxiety disorder (F41.1) Active confirmed Problem Chronic intractable migraine without aura (048093106637107) Chronic migraine without aura, intractable, without status migrainosus (G43.719) Active confirmed Problem Insomnia (599757683) Insomnia, unspecified (G47.00) Active confirmed Problem Obstructive sleep apnea syndrome (disorder) (58779697) Obstructive sleep apnea (adult) (pediatric) (G47.33) Active confirmed Problem Polyneuropathy (29000781) Polyneuropathy, unspecified (G62.9) Active confirmed Problem Chronic kidney disease due to hypertension (971755483884116) Hypertensive chronic kidney disease with stage 1 through stage 4 chronic kidney disease, or unspecified chronic kidney disease (I12.9) Active confirmed Problem Fibromyalgia (946304796) Fibromyalgia (M79.7) Active confirmed Problem Neurogenic dysfunction of the urinary bladder (379551267) Neuromuscular dysfunction of bladder, unspecified (N31.9) Active confirmed Problem Abnormal uterine bleeding (35243271118782) Abnormal uterine and vaginal bleeding, unspecified (N93.9) Active confirmed Problem Dysphagia (75886500) Dysphagia, unspecified (R13.10) Active confirmed Problem Recurrent falls (566205420) Repeated falls (R29.6) Active confirmed Problem 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 2 diabetes mellitus with other diabetic ophthalmic complication (E11.39) Active confirmed Problem Essential hypertension (08158909) Essential (primary) hypertension (I10) Active confirmed Problem Carpal tunnel syndrome (79554131) Carpal tunnel syndrome, bilateral upper limbs (G56.03) Active confirmed Problem Chronic kidney disease stage 3B (disorder) (600014047) Chronic kidney disease, stage 3b (N18.32) Active confirmed Problem Age-related osteoporosis (114019123) Age related osteoporosis, unspecified pathological fracture presence (M81.0) Active confirmed Vital Signs Heart Rate 116 /min 10/08/2024 Temperature 96.8 degrees Fahrenheit 10/08/2024 Blood pressure diastolic 80 mm Hg 10/08/2024 Oximetry 98 % 10/08/2024 Height 60 in 10/08/2024 Blood pressure systolic 122 mm Hg 10/08/2024 Weight 203.4 lbs 10/08/2024 BMI 39.72 kg/m2 10/08/2024 Encounters Encounter Location Date Provider Diagnosis [address] [place] [address] 12/20/2023 DOREEN ANGELES Mixed hyperlipidemia E78.2 ; Diabetes mellitus due to underlying condition with diabetic neuropathy, unspecified E08.40 ; Major depressive disorder, recurrent, mild F33.0 and Morbid (severe) obesity due to excess calories E66.[address] [place] [address] 03/27/2024 DOREEN ANGELES Type 2 diabetes mellitus with other diabetic kidney complication E11.29 ; Mixed hyperlipidemia E78.2 ; Diabetes mellitus due to underlying condition with diabetic neuropathy, unspecified E08.40 ; Major depressive disorder, recurrent, mild F33.0 and Morbid (severe) obesity due to excess calories E66.[address] [place] [address] 07/09/2024 DOREEN ANGELES Urgency of urination R39.15 ; Diabetes mellitus due to underlying condition with diabetic neuropathy, unspecified E08.40 ; Type 2 diabetes mellitus with other diabetic kidney complication E11.29 ; Mixed hyperlipidemia E78.2 ; Major depressive disorder, recurrent, mild F33.0 and Morbid (severe) obesity due to excess calories E66.[address] [place] [address] 07/30/2024 Bassam Barakat Diabetes mellitus du e to underlying condition [...] mammogram for malignant neoplasm of breast Z12.[address] [place] [address] 08/07/2024 DOREEN ANGELES Mixed hyperlipidemia E78.2 ; [...] (pediatric) G47.33 and Generalized anxiety disorder F41.[address] [place] [address] 10/08/2024 DOREEN ANGELES Type 2 diabetes mellitus with [...] anxiety disorder F41.1 and Insomnia, unspecified G47.[address] [place] [address] 07/09/2024 DOREEN ANGELES Urinary tract infection, site not specified N39.[address] [place] [address] 08/02/2024 Bassam Barakat [address] [place] [address] 08/05/[address] [place] [address] 04/07/[address] [place] [address] 05/01/[address] [place] [address] 06/04/2024 [facility] [address] [facility] [place] [address] 06/05/2024 [facility] [address] [place] [address] 06/13/2024 [facility] [address] [facility] [place] [address] 06/26/2024 [facility] [address] [facility] [place] [address] 06/27/2024 [facility] [address] [facility] [place] [address] 06/28/2024 [facility] [address] [facility] [place] [address] 07/06/2024 [facility] [address] [facility] [place] [address] 07/08/2024 [facility] [address] [facility] [place] [address] 07/11/2024 [facility] [address] [facility] [place] [address] 07/13/2024 [facility] [address] [facility] [place] [address] 07/15/2024 [facility] [address] [facility] [place] [address] 07/31/2024 [facility] [address] [facility] [place] [address] 07/31/2024 [facility] [address] [facility] [place] [address] 08/07/2024 [facility] [address] [place] [address] 08/08/2024 [facility] [address] [place] [address] 08/09/2024 [facility] [address] [place] [address] 08/09/2024 [facility] [address] [place] [address] 08/13/2024 [facility] [address] [place] [address] 08/17/2024 [facility] [address] [place] [address] 08/17/[address] [place] [address] 08/17/[address] [place] [address] 08/19/[address] [place] [address] 09/27/[address] [place] [address] 09/30/[address] [place] [address] 10/01/2024 [facility] Assessments Encounter Date Diagnosis (ICD Code) Assessment Notes Treatment Notes Treatment Clinical Notes Section Notes 12/20/2023 Diabetes mellitus due to underlying condition [...] hemoglobin A1c, dietary changes. She is seen loss claim clerk in the past 1 year. Foot care [...] hemoglobin A1c, dietary changes. She is seen loss claim clerk in the past 1 year. Foot care [...] will inform us. Screening blood work ordered 03/27/2024 Diabetes mellitus due to underlying condition [...] hemoglobin A1c, dietary changes. She is seen loss claim clerk in the past 1 year. Foot care [...] hemoglobin A1c, dietary changes. She is seen loss claim clerk in the past 1 year. Foot care [...] hemoglobin A1c, dietary changes. She is seen loss claim clerk in the past 1 year. Foot care [...] hemoglobin A1c, dietary changes. She is seen loss claim clerk in the past 1 year. Foot care [...] hemoglobin A1c, dietary changes. She is seen loss claim clerk in the past 1 year. Foot care [...] infection, site not specified (ICD-10 - N39.0) 08/07/2024 Diabetes mellitus due to underlying condition [...] hemoglobin A1c, dietary changes. She is seen loss claim clerk in the past 1 year. Foot care discussed with the patient. Hypertension.Blood pressure reasonably controlled, Not on medications. continue with diet modification. Hyperlipidemia. She is not on pravastatin. It is recommended for her to be on statin medication given that she does have history of type 2 diabetes. Will check lipid panel Chronic kidney disease stage IIIb. She follows up with [facility] nephrologgy and she is not in volume [...] c-scope Mammogram: Ordered Mammogram HCP SON SHANNON [phone]. MOLST form discussed. Screening blood work reviewed [...] hemoglobin A1c, dietary changes. She is seen loss claim clerk in the past 1 year. Foot care discussed with the patient. Hypertension.Blood pressure reasonably controlled, Not on medications. continue with diet modification. Hyperlipidemia. She is not on pravastatin. It is recommended for her to be on statin medication given that she does have history of type 2 diabetes. Will check lipid panel Chronic kidney disease stage IIIb. She follows up with [facility] nephrologgy and she is not in volume [...] c-scope Mammogram: Ordered Mammogram HCP SON SHANNON [phone]. MOLST form discussed. Screening blood work reviewed General concerns have been discussed I have rendered the services for this patient under direct supervision of Dr. Angeles, who did not see the patient but was available upon request 10/08/2024 Type 2 diabetes mellitus with other [...] A1c in 3 months. She is seen loss claim clerk in the past 1 year. Hypertension/hyper lipidemia. She is normotensive and she is on Crestor 20 mg daily LDL within recommended range. Chronic kidney disease stage IIIb. Stable at this point and she does not appear to be in volume overload. She follows up with boat designer on a regular basis. Generalized anxiety disorder/depressio [...] A1c in 3 months. She is seen loss claim clerk in the past 1 year. Hypertension/hyper lipidemia. She is normotensive and she is on Crestor 20 mg daily LDL within recommended range. Chronic kidney disease stage IIIb. Stable at this point and she does not appear to be in volume overload. She follows up with boat designer on a regular basis. Generalized anxiety disorder/depressio n/insomnia. She is stable on sertraline 25 mg daily and she is also on mirtazapine 7.5 mg daily Obesity. Dietary recommendation and advised regular exercise. Goal is to lose 6 pounds a month. Check A1c before next appointment 07/30/2024 Diabetes mellitus due to underlying condition [...] hemoglobin A1c, dietary changes. She is seen loss claim clerk in the past 1 year. Foot care [...] disease stage IIIb. She follows up with [facility] nephrologgy and she is not in volume [...] c-scope Mammogram: Ordered Mammogram HCP SON SHANNON [phone]. MOLST form discussed. Screening blood work ordered [...] hemoglobin A1c, dietary changes. She is seen loss claim clerk in the past 1 year. Foot care [...] disease stage IIIb. She follows up with [facility] nephrologgy and she is not in volume [...] c-scope Mammogram: Ordered Mammogram HCP SON SHANNON [phone]. MOLST form discussed. Screening blood work ordered [...] hemoglobin A1c, dietary changes. She is seen loss claim clerk in the past 1 year. Foot care [...] disease stage IIIb. She follows up with [facility] nephrologgy and she is not in volume [...] c-scope Mammogram: Ordered Mammogram HCP SON SHANNON [phone]. MOLST form discussed. Screening blood work ordered General concerns have been discussed I have rendered the services for this patient under direct supervision of Dr. Angeles, who did not see the patient but was available upon request 10/08/2024 Mixed hyperlipidemia (ICD-10 - E78.2) Jane [...] A1c in 3 months. She is seen loss claim clerk in the past 1 year. Hypertension/hyper lipidemia. She is normotensive and she is on Crestor 20 mg daily LDL within recommended range. Chronic kidney disease stage IIIb. Stable at this point and she does not appear to be in volume overload. She follows up with boat designer on a regular basis. Generalized anxiety disorder/depressio n/insomnia. She is stable on sertraline 25 mg daily and she is also on mirtazapine 7.5 mg daily Obesity. Dietary recommendation and advised regular exercise. Goal is to lose 6 pounds a month. Check A1c before next appointment 08/07/2024 Type 2 diabetes mellitus with other [...] hemoglobin A1c, dietary changes. She is seen loss claim clerk in the past 1 year. Foot care discussed with the patient. Hypertension.Blood pressure reasonably controlled, Not on medications. continue with diet modification. Hyperlipidemia. She is not on pravastatin. It is recommended for her to be on statin medication given that she does have history of type 2 diabetes. Will check lipid panel Chronic kidney disease stage IIIb. She follows up with [facility] nephrologgy and she is not in volume [...] Mammogram: Ordered Mammogram HCP SON SHANNON [phone]. MOLST form discussed. Screening blood work reviewed [...] hemoglobin A1c, dietary changes. She is seen loss claim clerk in the past 1 year. Foot care [...] hemoglobin A1c, dietary changes. She is seen loss claim clerk in the past 1 year. Foot care [...] Ambien to her. Screening blood work ordered 12/20/2023 Major depressive [...] hemoglobin A1c, dietary changes. She is seen loss claim clerk in the past 1 year. Foot care [...] will inform us. Screening blood work ordered 03/27/2024 Morbid (severe) [...] hemoglobin A1c, dietary changes. She is seen loss claim clerk in the past 1 year. Foot care [...] Ambien to her. Screening blood work ordered 12/20/2023 Morbid (severe) obesity due to excess [...] hemoglobin A1c, dietary changes. She is seen loss claim clerk in the past 1 year. Foot care [...] will inform us. Screening blood work ordered 07/09/2024 Mixed hyperlipidemia [...] hemoglobin A1c, dietary changes. She is seen loss claim clerk in the past 1 year. Foot care [...] Ambien to her. Screening blood work ordered 10/08/2024 Hypertensive chronic kidney disease with stage [...] A1c in 3 months. She is seen loss claim clerk in the past 1 year. Hypertension/hyper lipidemia. She is normotensive and she is on Crestor 20 mg daily LDL within recommended range. Chronic kidney disease stage IIIb. Stable at this point and she does not appear to be in volume overload. She follows up with boat designer on a regular basis. Generalized anxiety disorder/depressio n/insomnia. She is stable on sertraline 25 mg daily and she is also on mirtazapine 7.5 mg daily Obesity. Dietary recommendation and advised regular exercise. Goal is to lose 6 pounds a month. Check A1c before next appointment 08/07/2024 Chronic kidney disease, stage 3 unspecified [...] hemoglobin A1c, dietary changes. She is seen loss claim clerk in the past 1 year. Foot care discussed with the patient. Hypertension.Blood pressure reasonably controlled, Not on medications. continue with diet modification. Hyperlipidemia. She is not on pravastatin. It is recommended for her to be on statin medication given that she does have history of type 2 diabetes. Will check lipid panel Chronic kidney disease stage IIIb. She follows up with [facility] nephrologgy and she is not in volume [...] c-scope Mammogram: Ordered Mammogram HCP SON SHANNON [phone]. MOLST form discussed. Screening blood work reviewed [...] hemoglobin A1c, dietary changes. She is seen loss claim clerk in the past 1 year. Foot care [...] disease stage IIIb. She follows up with [facility] nephrologgy and she is not in volume [...] c-scope Mammogram: Ordered Mammogram HCP SON SHANNON [phone]. MOLST form discussed. Screening blood work ordered General concerns have been discussed I have rendered the services for this patient under direct supervision of Dr. Angeles, who did not see the patient but was available upon request 07/30/2024 Mixed hyperlipidemia (ICD-10 - E78.2) Celeste [...] hemoglobin A1c, dietary changes. She is seen loss claim clerk in the past 1 year. Foot care [...] disease stage IIIb. She follows up with [facility] nephrologgy and she is not in volume [...] c-scope Mammogram: Ordered Mammogram HCP SON SHANNON [phone]. MOLST form discussed. Screening blood work ordered General concerns have been discussed I have rendered the services for this patient under direct supervision of Dr. Angeles, who did not see the patient but was available upon request 10/08/2024 Chronic kidney disease, stage 3b (ICD-10 [...] A1c in 3 months. She is seen loss claim clerk in the past 1 year. Hypertension/hyper lipidemia. She is normotensive and she is on Crestor 20 mg daily LDL within recommended range. Chronic kidney disease stage IIIb. Stable at this point and she does not appear to be in volume overload. She follows up with boat designer on a regular basis. Generalized anxiety disorder/depressio n/insomnia. She is stable on sertraline 25 mg daily and she is also on mirtazapine 7.5 mg daily Obesity. Dietary recommendation and advised regular exercise. Goal is to lose 6 pounds a month. Check A1c before next appointment 07/09/2024 Major depressive disorder, recurrent, mild (ICD-10 [...] hemoglobin A1c, dietary changes. She is seen loss claim clerk in the past 1 year. Foot care [...] to her. Screening blood work ordered 08/07/2024 Major depressive disorder, recurrent, mild (ICD-10 [...] hemoglobin A1c, dietary changes. She is seen loss claim clerk in the past 1 year. Foot care discussed with the patient. Hypertension.Blood pressure reasonably controlled, Not on medications. continue with diet modification. Hyperlipidemia. She is not on pravastatin. It is recommended for her to be on statin medication given that she does have history of type 2 diabetes. Will check lipid panel Chronic kidney disease stage IIIb. She follows up with [facility] nephrologgy and she is not in volume [...] c-scope Mammogram: Ordered Mammogram HCP SON SHANNON [phone]. MOLST form discussed. Screening blood work reviewed General concerns have been discussed I have rendered the services for this patient under direct supervision of Dr. Angeles, who did not see the patient but was available upon request 10/08/2024 Other obesity due to excess calories [...] A1c in 3 months. She is seen loss claim clerk in the past 1 year. Hypertension/hyper lipidemia. She is normotensive and she is on Crestor 20 mg daily LDL within recommended range. Chronic kidney disease stage IIIb. Stable at this point and she does not appear to be in volume overload. She follows up with boat designer on a regular basis. Generalized anxiety disorder/depressio n/insomnia. She is stable on sertraline 25 mg daily and she is also on mirtazapine 7.5 mg daily Obesity. Dietary recommendation and advised regular exercise. Goal is to lose 6 pounds a month. Check A1c before next appointment 07/09/2024 Morbid (severe) obesity due to excess [...] hemoglobin A1c, dietary changes. She is seen loss claim clerk in the past 1 year. Foot care [...] hemoglobin A1c, dietary changes. She is seen loss claim clerk in the past 1 year. Foot care discussed with the patient. Hypertension.Blood pressure reasonably controlled, Not on medications. continue with diet modification. Hyperlipidemia. She is not on pravastatin. It is recommended for her to be on statin medication given that she does have history of type 2 diabetes. Will check lipid panel Chronic kidney disease stage IIIb. She follows up with [facility] nephrologgy and she is not in volume [...] c-scope Mammogram: Ordered Mammogram HCP SON SHANNON [phone]. MOLST form discussed. Screening blood work reviewed [...] hemoglobin A1c, dietary changes. She is seen loss claim clerk in the past 1 year. Foot care [...] disease stage IIIb. She follows up with [facility] nephrologgy and she is not in volume [...] c-scope Mammogram: Ordered Mammogram HCP SON SHANNON [phone]. MOLST form discussed. Screening blood work ordered [...] hemoglobin A1c, dietary changes. She is seen loss claim clerk in the past 1 year. Foot care [...] disease stage IIIb. She follows up with [facility] nephrologgy and she is not in volume [...] c-scope Mammogram: Ordered Mammogram HCP SON SHANNON [phone]. MOLST form discussed. Screening blood work ordered [...] hemoglobin A1c, dietary changes. She is seen loss claim clerk in the past 1 year. Foot care discussed with the patient. Hypertension.Blood pressure reasonably controlled, Not on medications. continue with diet modification. Hyperlipidemia. She is not on pravastatin. It is recommended for her to be on statin medication given that she does have history of type 2 diabetes. Will check lipid panel Chronic kidney disease stage IIIb. She follows up with [facility] nephrologgy and she is not in volume [...] c-scope Mammogram: Ordered Mammogram HCP SON SHANNON [phone]. MOLST form discussed. Screening blood work reviewed General concerns have been discussed I have rendered the services for this patient under direct supervision of Dr. Angeles, who did not see the patient but was available upon request 10/08/2024 Dietary counseling and surveillance (ICD-10 - [...] A1c in 3 months. She is seen loss claim clerk in the past 1 year. Hypertension/hyper lipidemia. She is normotensive and she is on Crestor 20 mg daily LDL within recommended range. Chronic kidney disease stage IIIb. Stable at this point and she does not appear to be in volume overload. She follows up with boat designer on a regular basis. Generalized anxiety disorder/depressio [...] A1c in 3 months. She is seen loss claim clerk in the past 1 year. Hypertension/hyper lipidemia. She is normotensive and she is on Crestor 20 mg daily LDL within recommended range. Chronic kidney disease stage IIIb. Stable at this point and she does not appear to be in volume overload. She follows up with boat designer on a regular basis. Generalized anxiety disorder/depressio n/insomnia. She is stable on sertraline 25 mg daily and she is also on mirtazapine 7.5 mg daily Obesity. Dietary recommendation and advised regular exercise. Goal is to lose 6 pounds a month. Check A1c before next appointment 08/07/2024 Generalized anxiety disorder (ICD-10 - F41.1) [...] hemoglobin A1c, dietary changes. She is seen loss claim clerk in the past 1 year. Foot care discussed with the patient. Hypertension.Blood pressure reasonably controlled, Not on medications. continue with diet modification. Hyperlipidemia. She is not on pravastatin. It is recommended for her to be on statin medication given that she does have history of type 2 diabetes. Will check lipid panel Chronic kidney disease stage IIIb. She follows up with [facility] nephrolog[facility] and she is not in volume [...] c-scope Mammogram: Ordered Mammogram HCP SON SHANNON [phone]. MOLST form discussed. Screening blood work reviewed [...] hemoglobin A1c, dietary changes. She is seen loss claim clerk in the past 1 year. Foot care [...] disease stage IIIb. She follows up with [facility] nephrologgy and she is not in volume [...] c-scope Mammogram: Ordered Mammogram HCP SON SHANNON [phone]. MOLST form discussed. Screening blood work ordered [...] hemoglobin A1c, dietary changes. She is seen loss claim clerk in the past 1 year. Foot care [...] disease stage IIIb. She follows up with [facility] nephrolog[facility] and she is not in volume [...] c-scope Mammogram: Ordered Mammogram HCP SON SHANNON [phone]. MOLST form discussed. Screening blood work ordered General concerns have been discussed I have rendered the services for this patient under direct supervision of Dr. Angeles, who did not see the patient but was available upon request 10/08/2024 Insomnia, unspecified (ICD-10 - G47.00) Jane [...] A1c in 3 months. She is seen loss claim clerk in the past 1 year. Hypertension/hyper lipidemia. She is normotensive and she is on Crestor 20 mg daily LDL within recommended range. Chronic kidney disease stage IIIb. Stable at this point and she does not appear to be in volume overload. She follows up with boat designer on a regular basis. Generalized anxiety disorder/depressio n/insomnia. She is stable on sertraline 25 mg daily and she is also on mirtazapine 7.5 mg daily Obesity. Dietary recommendation and advised regular exercise. Goal is to lose 6 pounds a month. Check A1c before next appointment 07/30/2024 Generalized anxiety disorder (ICD-10 - F41.1) [...] hemoglobin A1c, dietary changes. She is seen loss claim clerk in the past 1 year. Foot care [...] disease stage IIIb. She follows up with [facility] nephrologgy and she is not in volume [...] c-scope Mammogram: Ordered Mammogram HCP SON SHANNON [phone]. MOLST form discussed. Screening blood work ordered [...] hemoglobin A1c, dietary changes. She is seen loss claim clerk in the past 1 year. Foot care [...] disease stage IIIb. She follows up with [facility] nephrologgy and she is not in volume [...] c-scope Mammogram: Ordered Mammogram HCP SON SHANNON [phone]. MOLST form discussed. Screening blood work ordered [...] hemoglobin A1c, dietary changes. She is seen loss claim clerk in the past 1 year. Foot care [...] disease stage IIIb. She follows up with [facility] nephrologgy and she is not in volume [...] c-scope Mammogram: Ordered Mammogram HCP SON SHANNON [phone]. MOLST form discussed. Screening blood work ordered [...] hemoglobin A1c, dietary changes. She is seen loss claim clerk in the past 1 year. Foot care [...] disease stage IIIb. She follows up with [facility] nephrologgy and she is not in volume [...] c-scope Mammogram: Ordered Mammogram HCP SON SHANNON [phone]. MOLST form discussed. Screening blood work ordered [...] hemoglobin A1c, dietary changes. She is seen loss claim clerk in the past 1 year. Foot care [...] disease stage IIIb. She follows up with [facility] nephrologgy and she is not in volume [...] c-scope Mammogram: Ordered Mammogram HCP SON SHANNON [phone]. MOLST form discussed. Screening blood work ordered General concerns have been discussed I have rendered the services for this patient under direct supervision of Dr. Angeles, who did not see the patient but was available upon request Plan Of Treatment Pending Test Test Name Order Date Hemoglobin A1c 10/08/2024 MAMMOGRAM, SCREENING 07/30/2024 COMPREHENSIVE METABOLIC PANEL 12/28/2021 DHEA SULFATE 04/05/2023 MICROALBUMIN, URINE 12/28/2021 TESTOSTERONE, TOTAL (FEMALES AND CHILDRE N < 16YRS) 04/05/2023 Xray: Knee Left (Standard, 4 Views) 07/10 Xray: Shoulder Left-Min 2 Vws 03/16/2023 Xray: Shoulder Left-Min 2 Vws 03/27/2024 Xray: Shoulder Left-Min 2 Vws 07/30/2024 Future Test Test Name Order Date MAMMOGRAM, SCREENING 06/29/2023 [id number] 08/07/2024 Hemoglobin [id number] 08/07/2024 Lipid Panel-[id number] 08/07/2024 Next Appt Details Provider Name:DOREEN ANGELES , 01/08/2025 01:45:00 PM, [address] [place] [address], [place], [address], Insurance Providers Payer Name Payer Address Payer Phone Subscriber Number Group Number Insured Name Patient Relationship to Insured Coverage Start Date Coverage End Date [employer] [address] [place] [phone] [id number] Jane Nuñez Self - patient is the insured Medicaid of [facility] [address] [place] [phone] [id number] Jane Nuñez Self - patient is the insured Medical (General) History Medical History History ICD Code Anxiety/Depression, sees pro vider at [facility], [place] Neurogenic bladder hyperlipidemia GDM CKD stage III and she follows up with Dr Crystal Christian hypertension NICO Insulin-dependent DM type II Migraine and see Dr Noriega Surgical History Surgery Date(Month/Year) Appendectomy Neck surgery Hospitalization History Reason Date(Month/Year) surgeries
--- OUTSIDE RECORDS SUMMARY | 2024-10-15 13:00 | XMS_ITS | Clinical Summary ---
Author Organization [facility] Address [address] [place] [address] Care Team Providers Care Asphalt Raker Name Role Phone Unavailable Primary Care Provider Unavailabl e Social History Tobacco Use Types Packs/Day Years Used Date Smoking Tobacco: Never Assessed Sex and Gender Information Value Date Recorded Sex Assigned at Not on file Gender Identity Not on file Sexual Orientation Not on file Plan of Treatment Not on file
== END 2024-10-15 12:45 | disposition home or self-care (01) ==
LOC: HO.HSM 12:11
PROVIDERS: PCP Hospitalist; Referring Provider Hospitalist; Visit Provider Registered Nurse
DX: G43.909 Migraine, unspecified, not intractable, without status migrainosus (principal); G44.209 Tension-type headache, unspecified, not intractable; G47.00 Insomnia, unspecified; R55 Syncope and collapse
CPT/HCPCS: 99214

== ENCOUNTER → 2024-10-18 14:52 | Outpatient (REF) | payer OTHER, MEDICAID, SELFPAY ==
--- OUTSIDE RECORDS SUMMARY | 2024-10-18 14:55 | XMS_ITS | Clinical Summary ---
Author Organization [facility] ity Address [address] [place] [address] Care Team Providers Care Community Aide Name Role Phone Unavailable Primary Care Provider [...]
--- OUTSIDE RECORDS SUMMARY | 2024-10-18 14:55 | XMS_ITS | Patient Health Record ---
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 Metabolic Panel (14)-[id number] Reviewed date:10/08/2024 05:55:14 PM Interpretation: Performing Lab:[facility], [address] [facility], [place], Phone - [phone], Director - Flaco Notes/Report: Glucose 128 70-99 [...] IU/L ALT (SGPT) 20 0-32 IU/L Lipid Panel-[id number] Reviewed date:10/08/2024 05:55:10 PM Interpretation: Performing Lab:[facility], [address] [facility], Phone - [phone], Director - Flaco Notes/Report: Cholesterol, Total 150 100-199 mg/dL Triglycerides 203 0-149 mg/dL HDL Cholesterol 46 >39 mg/dL VLDL Cholesterol Remington 34 5-40 mg/dL LDL Chol Calc (NIH) 70 0-99 mg/dL Albumin/Creatinine Ratio,Uri ne-097008 Reviewed date:10/08/2024 05:55:06 PM Interpretation: Performing Lab:[facility], [address] [facility], Phone - [phone], Director - Flaco Notes/Report: Creatinine, Urine 80.4 Not Estab. mg/dL Albumin, Urine 6.6 Not Estab. ug/mL Alb/Creat Ratio 8 0-29 mg/g creat Normal: 0 - 29 Moderately increased: 30 - 300 Severely increased: >300 Hemoglobin [id number] Reviewed date:10/08/2024 05:55:04 PM Interpretation: Performing Lab:[facility], [address] [facility], Phone - [phone], Director - Flaco Notes/Report: Hemoglobin A1c 8.4 4.8-5.6 % . Prediabetes: 5.7 - 6.4 Diabetes: >6.4 Glycemic control for adults with diabetes: <7.0 Urine Culture, Routine-[id number] 7 Reviewed date:07/11/2024 03:53:28 PM Interpretation: Performing Lab:[facility], [address], [place], Phone - [phone], Director - [facility] Notes/Report: Clinical Information:SRC: Clinical Information:SRC: Urine Culture, [...] S Trimethoprim/Sulfa S Comp. Metabolic Panel (14)-[id number] Reviewed date:08/05/2024 02:26:41 PM Interpretation: Performing Lab:[facility], [address] [facility], Phone - [phone], Director - MDMisha Notes/Report: Glucose 212 70-99 [...] IU/L ALT (SGPT) 18 0-32 IU/L Lipid Panel-[id number] Reviewed date:08/05/2024 02:25:46 PM Interpretation: Performing Lab:[facility], [address] [facility], [place], Phone - [phone], Director - Flaco Notes/Report: Cholesterol, Total 247 100-199 mg/dL Triglycerides 213 0-149 mg/dL HDL Cholesterol 48 >39 mg/dL VLDL Cholesterol Remington 39 5-40 mg/dL LDL Chol Calc (NIH) 160 0-99 mg/dL Albumin/Creatinine Ratio,Uri ne-600751 Reviewed date:08/05/2024 02:26:06 PM Interpretation: Performing Lab:[facility] [place], [address] [place] [address], Phone - [phone], Director - Flaco Notes/Report: Creatinine, Urine 199.2 Not Estab. mg/dL Albumin, Urine 11.6 Not Estab. ug/mL Alb/Creat Ratio 6 0-29 mg/g creat Normal: 0 - 29 Moderately increased: 30 - 300 Severely increased: >300 Vitamin D, 47-Eobdefj-[id number] Reviewed date:08/05/2024 02:25:18 PM Interpretation: Performing Lab:[facility] [place], [address] [place] [address], Phone - [phone], Director - Flaco Notes/Report: Vitamin D, 25-Hydroxy 22.4 30.0-100.0 ng/mL Vitamin D deficiency has been defined by the [place] of Medicine and an Endocrine Society practice guideline as a level of serum 25-OH vitamin D less than 20 ng/mL (1,2). The Endocrine Society went on to further define vitamin D insufficiency as a level between 21 and 29 ng/mL (2). 1. IOM ([place] of Medicine). 2010. Dietary reference intakes for calcium and D. [place]: The National Academies Press. 2. Gina MF, Hafsa NC, Tori LUCAS, et al. Evaluation, treatment, and prevention of vitamin D deficiency: an Endocrine Society clinical practice guideline. JCEM. 2010; 96(7):1911-30. Hemoglobin [id number] Reviewed date:08/05/2024 02:25:32 PM Interpretation: Performing Lab:[facility] [place], [address] [place] [address], Phone - [phone], Director - Flaco Notes/Report: Hemoglobin A1c 10.1 4.8-5.6 % . Prediabetes: 5.7 - 6.4 Diabetes: >6.4 Glycemic control for adults with diabetes: <7.0 Reason For Referral Reason left shoulder pain Diagnosis 1 Type 2 diabetes tory itus with other diabetic kidney complication (E11.29) Referral Organization [facility] Referring Provider First Name DOREEN Referring Provider Last Name BRIDGETTE Referring Provider Speciality Internal M edicine Referred Provider Specialty Orthopedic S urgery Referral Priority Routine Reason left shoulder pain Diagnosis 1 Type 2 diabetes tory itus with other diabetic kidney complication (E11.29) Referral Organization [facility] Referring Provider First Name LOGAN Referring Provider Last Name [facility] Referring Provider Speciality Internal edicine Referred Provider Specialty Physical The rapist Referral Priority Routine Reason repeat falls pleas e evaluate and treat Diagnosis 1 Repeated falls (R29. 6) Referral Organization [facility] Referring Provider First Name LOGAN Referring Provider Last Name SHITAL Referring Provider Speciality Internal edicine Referred Provider Specialty Physical The clem General Notes Referral was faxed t [facility]. Please contact patient for scheduling., Evonne Carrasco 07/10/2024 11:37:36 AM > Referral Priority Routine Reason C-scope Please karmen luate and treat Diagnosis 1 Encounter for screen ing for malignant neoplasm of colon (Z12.11) Referral Organization [facility] Referring Provider First Name Bassam Referring Provider Last Name Yuval Referred Provider Specialty Gastroentero logy General Notes Please call the [facility] to schedule the appointment, [facility] - [phone], Krista Breen 07/31/2024 03:53:19 PM > Referral Priority Routine Reason Evaluation and manag ement Diagnosis 1 Major depressive dis order, recurrent, mild (F33.0) Diagnosis 2 Generalized anxiety disorder (F41.1) Referral Organization [facility] Referring Provider First Name Bassam Referring Provider Last Name Yuval Referred Provider Specialty Mental healt h counseling General Notes Referral faxed to N - Pt needs to call [phone] for scheduling. Referral Priority Routine Reason Evaluation and manag ement Diagnosis 1 Obstructive sleep ap lyn (adult) (pediatric) (G47.33) Referral Organization [facility] Referring Provider First Name José Referring Provider Last Name Yuval Referred Provider Specialty Sleep Medici ne General Notes Referral sent to [facility] ([address] [place] [address] ) - Office will call patient for [...] MG 1 tablet Orally Once a day OPERATIONS MANAGER/COORDINATOR Not-Taking Zolpidem Tartrate 10 MG 1 tablet [...] DAY; Duration: 90 Active FreeStyle Sae 2 [place] - USE TO CHECK BLOOD SUGAR 4 [...] W/U Status Risk Notes Problem Diabetic neuropathy (376965047) Diabetes mellitus due to underlying condition with diabetic neuropathy, unspecified (E08.40) Active confirmed Problem Diabetic renal disease (667967478) 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.29) Active confirmed Problem Morbid obesity (disorder) (082849423) Morbid (severe) obesity due to excess calories (E66.01) Active confirmed Problem Obesity due to excess calories (211595525) Other obesity due to excess calories (E66.09) Active confirmed Problem Mixed hyperlipidemia (694899930) Mixed hyperlipidemia (E78.2) Active confirmed Problem Mild recurrent major depression (07901988) Major depressive disorder, recurrent, mild (F33.0) Active confirmed Problem Generalized anxiety disorder (91561074) Generalized anxiety disorder (F41.1) Active confirmed Problem Chronic intractable migraine without aura (734113482566349) Chronic migraine without aura, intractable, without status migrainosus (G43.719) Active confirmed Problem Insomnia (102566863) Insomnia, unspecified (G47.00) Active confirmed Problem Obstructive sleep apnea syndrome (disorder) (71681278) Obstructive sleep apnea (adult) (pediatric) (G47.33) Active confirmed Problem Polyneuropathy (90316051) Polyneuropathy, unspecified (G62.9) Active confirmed Problem Chronic kidney disease due to hypertension (582881299927351) Hypertensive chronic kidney disease with stage 1 through stage 4 chronic kidney disease, or unspecified chronic kidney disease (I12.9) Active confirmed Problem Fibromyalgia (593528533) Fibromyalgia (M79.7) Active confirmed Problem Neurogenic dysfunction of the urinary bladder (641788246) Neuromuscular dysfunction of bladder, unspecified (N31.9) Active confirmed Problem Abnormal uterine bleeding (50431294754215) Abnormal uterine and vaginal bleeding, unspecified (N93.9) Active confirmed Problem Dysphagia (71669273) Dysphagia, unspecified (R13.10) Active confirmed Problem Recurrent falls (919731734) Repeated falls (R29.6) Active confirmed Problem Diabetic oculopathy (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) Type 2 diabetes mellitus with other diabetic ophthalmic complication (E11.39) Active confirmed Problem Essential hypertension (14195384) Essential (primary) hypertension (I10) Active confirmed Problem Carpal tunnel syndrome (89527072) Carpal tunnel syndrome, bilateral upper limbs (G56.03) Active confirmed Problem Chronic kidney disease stage 3B (disorder) (006236432) Chronic kidney disease, stage 3b (N18.32) Active confirmed Problem Age-related osteoporosis (309812887) Age related osteoporosis, unspecified pathological fracture presence (M81.0) Active confirmed Vital Signs Heart Rate 116 /min 10/08/2024 Temperature 96.8 degrees Fahrenheit 10/08/2024 Blood pressure diastolic 80 mm Hg 10/08/2024 Oximetry 98 % 10/08/2024 Height 60 in 10/08/2024 Blood pressure systolic 122 mm Hg 10/08/2024 Weight 203.4 lbs 10/08/2024 BMI 39.72 kg/m2 10/08/2024 Encounters Encounter Location Date Provider Diagnosis [address] [place] [address] 12/20/2023 DOREEN ANGELES Mixed hyperlipidemia E78.2 ; Diabetes mellitus due to underlying condition with diabetic neuropathy, unspecified E08.40 ; Major depressive disorder, recurrent, mild F33.0 and Morbid (severe) obesity due to excess calories E66.[address] [place] [address] 03/27/2024 DOREEN ANGELES Type 2 diabetes mellitus with other diabetic kidney complication E11.29 ; Mixed hyperlipidemia E78.2 ; Diabetes mellitus due to underlying condition with diabetic neuropathy, unspecified E08.40 ; Major depressive disorder, recurrent, mild F33.0 and Morbid (severe) obesity due to excess calories E66.[address] [place] [address] 07/09/2024 DOREEN ANGELES Urgency of urination R39.15 ; Diabetes mellitus due to underlying condition with diabetic neuropathy, unspecified E08.40 ; Type 2 diabetes mellitus with other diabetic kidney complication E11.29 ; Mixed hyperlipidemia E78.2 ; Major depressive disorder, recurrent, mild F33.0 and Morbid (severe) obesity due to excess calories E66.[address] [place] [address] 07/30/2024 Bassam Barakat Diabetes mellitus du e [...] mammogram for malignant neoplasm of breast Z12.[address] [place] [address] 08/07/2024 DOREEN ANGELES Mixed hyperlipidemia E78.2 ; [...] (pediatric) G47.33 and Generalized anxiety disorder F41.[address] [place] [address] 10/08/2024 DOREEN ANGELES Type 2 diabetes mellitus [...] anxiety disorder F41.1 and Insomnia, unspecified G47.[address] [place] [address] 07/09/2024 DOREEN ANGELES Urinary tract infection, site not specified N39.[address] [place] [address] 08/02/2024 Bassam Barakat [address] [place] [address] 08/05/[address] [place] [address] 04/07/[address] [place] [address] 05/01/[address] [place] [address] 06/04/2024 [facility] [address] [facility] [address] 06/05/2024 [facility] [address] [place] [address] 06/13/2024 [facility] [address] [facility] [address] 06/26/2024 [facility] [address] [facility] [address] 06/27/2024 [facility] [address] [facility] [address] 06/28/2024 [facility] [address] [facility] [place] [address] 07/06/2024 [facility] [address] [facility] [place] [address] 07/08/2024 [facility] [address] [facility] [place] [address] 07/11/2024 [facility] [address] [facility] [place] [address] 07/13/2024 [facility] [address] [facility] [place] [address] 07/15/2024 [facility] [address] [facility] [place] [address] 07/31/2024 [facility] [address] [facility] [place] [address] 07/31/2024 [facility] [address] [facility] [place] [address] 08/07/2024 [facility] [address] [place] [address] 08/08/2024 [facility] [address] [place] [address] 08/09/2024 [facility] [address] [place] [address] 08/09/2024 [facility] [address] [place] [address] 08/13/2024 [facility] [address] [place] [address] 08/17/2024 [facility] [address] [place] [address] 08/17/[address] [place] [address] 08/17/[address] [place] [address] 08/19/[address] [place] [address] 09/27/[address] [place] [address] 09/30/[address] [place] [address] 10/01/2024 [facility] Assessments Encounter Date Diagnosis (ICD Code) Assessment [...] hemoglobin A1c, dietary changes. She is seen hat block bench hand in the past 1 year. Foot care [...] hemoglobin A1c, dietary changes. She is seen hat block bench hand in the past 1 year. Foot care [...] hemoglobin A1c, dietary changes. She is seen hat block bench hand in the past 1 year. Foot care [...] hemoglobin A1c, dietary changes. She is seen hat block bench hand in the past 1 year. Foot care [...] hemoglobin A1c, dietary changes. She is seen hat block bench hand in the past 1 year. Foot care [...] hemoglobin A1c, dietary changes. She is seen hat block bench hand in the past 1 year. Foot care [...] hemoglobin A1c, dietary changes. She is seen hat block bench hand in the past 1 year. Foot care [...] hemoglobin A1c, dietary changes. She is seen hat block bench hand in the past 1 year. Foot care [...] disease stage IIIb. She follows up with [facility] nephrologgy and she is not in [...] c-scope Mammogram: Ordered Mammogram HCP SON SHANNON [phone]. MOLST form discussed. Screening blood work ordered [...] hemoglobin A1c, dietary changes. She is seen hat block bench hand in the past 1 year. Foot care [...] disease stage IIIb. She follows up with [facility] nephrologgy and she is not in [...] GI for c-scope Mammogram: Ordered Mammogram HCP PATRICIA ORTEGA [phone]. MOLST form discussed. Screening blood work ordered [...] hemoglobin A1c, dietary changes. She is seen hat block bench hand in the past 1 year. Foot care discussed with the patient. Hypertension.Blood pressure reasonably controlled, Not on medications. continue with diet modification. Hyperlipidemia. She is not on pravastatin. It is recommended for her to be on statin medication given that she does have history of type 2 diabetes. Will check lipid panel Chronic kidney disease stage IIIb. She follows up with [facility] nephrologgy and she is not in [...] GI for c-scope Mammogram: Ordered Mammogram HCP PATRICIA ORTEGA [phone]. MOLST form discussed. Screening blood work reviewed [...] hemoglobin A1c, dietary changes. She is seen hat block bench hand in the past 1 year. Foot care discussed with the patient. Hypertension.Blood pressure reasonably controlled, Not on medications. continue with diet modification. Hyperlipidemia. She is not on pravastatin. It is recommended for her to be on statin medication given that she does have history of type 2 diabetes. Will check lipid panel Chronic kidney disease stage IIIb. She follows up with [facility] nephrologgy and she is not in [...] c-scope Mammogram: Ordered Mammogram HCP SON SHANNON [phone]. MOLST form discussed. Screening blood work reviewed [...] A1c in 3 months. She is seen hat block bench hand in the past 1 year. Hypertension/hyper lipidemia. She is normotensive and she is on Crestor 20 mg daily LDL within recommended range. Chronic kidney disease stage IIIb. Stable at this point and she does not appear to be in volume overload. She follows up with surgical assistant certified on a regular basis. Generalized anxiety disorder/depressio [...] A1c in 3 months. She is seen hat block bench hand in the past 1 year. Hypertension/hyper lipidemia. She is normotensive and she is on Crestor 20 mg daily LDL within recommended range. Chronic kidney disease stage IIIb. Stable at this point and she does not appear to be in volume overload. She follows up with surgical assistant certified on a regular basis. Generalized anxiety disorder/depressio [...] A1c in 3 months. She is seen hat block bench hand in the past 1 year. Hypertension/hyper lipidemia. She is normotensive and she is on Crestor 20 mg daily LDL within recommended range. Chronic kidney disease stage IIIb. Stable at this point and she does not appear to be in volume overload. She follows up with surgical assistant certified on a regular basis. Generalized anxiety disorder/depressio [...] hemoglobin A1c, dietary changes. She is seen hat block bench hand in the past 1 year. Foot care discussed with the patient. Hypertension.Blood pressure reasonably controlled, Not on medications. continue with diet modification. Hyperlipidemia. She is not on pravastatin. It is recommended for her to be on statin medication given that she does have history of type 2 diabetes. Will check lipid panel Chronic kidney disease stage IIIb. She follows up with [facility] nephrologgy and she is not in [...] c-scope Mammogram: Ordered Mammogram HCP SON SHANNON [phone]. MOLST form discussed. Screening blood work reviewed [...] hemoglobin A1c, dietary changes. She is seen hat block bench hand in the past 1 year. Foot care [...] disease stage IIIb. She follows up with [facility] nephrologgy and she is not in [...] c-scope Mammogram: Ordered Mammogram HCP SON SHANNON [phone]. MOLST form discussed. Screening blood work ordered [...] hemoglobin A1c, dietary changes. She is seen hat block bench hand in the past 1 year. Foot care [...] hemoglobin A1c, dietary changes. She is seen hat block bench hand in the past 1 year. Foot care [...] hemoglobin A1c, dietary changes. She is seen hat block bench hand in the past 1 year. Foot care [...] hemoglobin A1c, dietary changes. She is seen hat block bench hand in the past 1 year. Foot care [...] hemoglobin A1c, dietary changes. She is seen hat block bench hand in the past 1 year. Foot care [...] hemoglobin A1c, dietary changes. She is seen hat block bench hand in the past 1 year. Foot care [...] A1c in 3 months. She is seen hat block bench hand in the past 1 year. Hypertension/hyper lipidemia. She is normotensive and she is on Crestor 20 mg daily LDL within recommended range. Chronic kidney disease stage IIIb. Stable at this point and she does not appear to be in volume overload. She follows up with surgical assistant certified on a regular basis. Generalized anxiety disorder/depressio n/insomnia. She is stable on sertraline 25 mg daily and she is also on mirtazapine 7.5 mg daily Obesity. Dietary recommendation and advised regular exercise. Goal is to lose 6 pounds a month. Check A1c before next appointment 07/30/2024 Chronic kidney disease, stage 3 unspecified [...] hemoglobin A1c, dietary changes. She is seen hat block bench hand in the past 1 year. Foot care [...] disease stage IIIb. She follows up with [facility] nephrologgy and she is not in [...] c-scope Mammogram: Ordered Mammogram HCP SON SHANNON [phone]. MOLST form discussed. Screening blood work ordered General concerns have been discussed I have rendered the services for this patient under direct supervision of Dr. Angeles, who did not see the patient but was available upon request 08/07/2024 Chronic kidney disease, stage 3 unspecified [...] hemoglobin A1c, dietary changes. She is seen hat block bench hand in the past 1 year. Foot care discussed with the patient. Hypertension.Blood pressure reasonably controlled, Not on medications. continue with diet modification. Hyperlipidemia. She is not on pravastatin. It is recommended for her to be on statin medication given that she does have history of type 2 diabetes. Will check lipid panel Chronic kidney disease stage IIIb. She follows up with [facility] nephrologgy and she is not in [...] c-scope Mammogram: Ordered Mammogram HCP SON SHANNON [phone]. MOLST form discussed. Screening blood work reviewed [...] A1c in 3 months. She is seen hat block bench hand in the past 1 year. Hypertension/hyper lipidemia. She is normotensive and she is on Crestor 20 mg daily LDL within recommended range. Chronic kidney disease stage IIIb. Stable at this point and she does not appear to be in volume overload. She follows up with surgical assistant certified on a regular basis. Generalized anxiety disorder/depressio n/insomnia. She is stable on sertraline 25 mg daily and she is also on mirtazapine 7.5 mg daily Obesity. Dietary recommendation and advised regular exercise. Goal is to lose 6 pounds a month. Check A1c before next appointment 08/07/2024 Major depressive disorder, recurrent, mild (ICD-10 [...] hemoglobin A1c, dietary changes. She is seen hat block bench hand in the past 1 year. Foot care discussed with the patient. Hypertension.Blood pressure reasonably controlled, Not on medications. continue with diet modification. Hyperlipidemia. She is not on pravastatin. It is recommended for her to be on statin medication given that she does have history of type 2 diabetes. Will check lipid panel Chronic kidney disease stage IIIb. She follows up with [facility] nephrologgy and she is not in [...] c-scope Mammogram: Ordered Mammogram HCP SON SHANNON [phone]. MOLST form discussed. Screening blood work reviewed [...] hemoglobin A1c, dietary changes. She is seen hat block bench hand in the past 1 year. Foot care [...] Ambien to her. Screening blood work ordered 07/30/2024 Mixed hyperlipidemia [...] hemoglobin A1c, dietary changes. She is seen hat block bench hand in the past 1 year. Foot care [...] disease stage IIIb. She follows up with [facility] nephrologgy and she is not in [...] c-scope Mammogram: Ordered Mammogram HCP SON SHANNON [phone]. MOLST form discussed. Screening blood work ordered [...] hemoglobin A1c, dietary changes. She is seen hat block bench hand in the past 1 year. Foot care [...] disease stage IIIb. She follows up with [facility] nephrologgy and she is not in [...] c-scope Mammogram: Ordered Mammogram HCP SON SHANNON [phone]. MOLST form discussed. Screening blood work ordered General concerns have been discussed I have rendered the services for this patient under direct supervision of Dr. Angeles, who did not see the patient but was available upon request 07/09/2024 Morbid (severe) obesity due to excess [...] hemoglobin A1c, dietary changes. She is seen hat block bench hand in the past 1 year. Foot care [...] hemoglobin A1c, dietary changes. She is seen hat block bench hand in the past 1 year. Foot care discussed with the patient. Hypertension.Blood pressure reasonably controlled, Not on medications. continue with diet modification. Hyperlipidemia. She is not on pravastatin. It is recommended for her to be on statin medication given that she does have history of type 2 diabetes. Will check lipid panel Chronic kidney disease stage IIIb. She follows up with [facility] nephrologgy and she is not in [...] c-scope Mammogram: Ordered Mammogram HCP SON SHANNON [phone]. MOLST form discussed. Screening blood work reviewed [...] A1c in 3 months. She is seen hat block bench hand in the past 1 year. Hypertension/hyper lipidemia. She is normotensive and she is on Crestor 20 mg daily LDL within recommended range. Chronic kidney disease stage IIIb. Stable at this point and she does not appear to be in volume overload. She follows up with surgical assistant certified on a regular basis. Generalized anxiety disorder/depressio n/insomnia. She is stable on sertraline 25 mg daily and she is also on mirtazapine 7.5 mg daily Obesity. Dietary recommendation and advised regular exercise. Goal is to lose 6 pounds a month. Check A1c before next appointment 08/07/2024 Obstructive sleep apnea (adult) (pediatric) (ICD-10 [...] hemoglobin A1c, dietary changes. She is seen hat block bench hand in the past 1 year. Foot care discussed with the patient. Hypertension.Blood pressure reasonably controlled, Not on medications. continue with diet modification. Hyperlipidemia. She is not on pravastatin. It is recommended for her to be on statin medication given that she does have history of type 2 diabetes. Will check lipid panel Chronic kidney disease stage IIIb. She follows up with [facility] nephrologgy and she is not in [...] c-scope Mammogram: Ordered Mammogram HCP SON SHANNON [phone]. MOLST form discussed. Screening blood work reviewed [...] A1c in 3 months. She is seen hat block bench hand in the past 1 year. Hypertension/hyper lipidemia. She is normotensive and she is on Crestor 20 mg daily LDL within recommended range. Chronic kidney disease stage IIIb. Stable at this point and she does not appear to be in volume overload. She follows up with surgical assistant certified on a regular basis. Generalized anxiety disorder/depressio n/insomnia. She is stable on sertraline 25 mg daily and she is also on mirtazapine 7.5 mg daily Obesity. Dietary recommendation and advised regular exercise. Goal is to lose 6 pounds a month. Check A1c before next appointment 07/30/2024 Morbid (severe) obesity due to excess [...] hemoglobin A1c, dietary changes. She is seen hat block bench hand in the past 1 year. Foot care [...] disease stage IIIb. She follows up with [facility] nephrologgy and she is not in [...] c-scope Mammogram: Ordered Mammogram HCP SON SHANNON [phone]. MOLST form discussed. Screening blood work ordered [...] hemoglobin A1c, dietary changes. She is seen hat block bench hand in the past 1 year. Foot care [...] disease stage IIIb. She follows up with [facility] nephrologgy and she is not in [...] c-scope Mammogram: Ordered Mammogram HCP SON SHANNON [phone]. MOLST form discussed. Screening blood work ordered General concerns have been discussed I have rendered the services for this patient under direct supervision of Dr. Angeles, who did not see the patient but was available upon request 10/08/2024 Generalized anxiety disorder (ICD-10 - F41.1) [...] A1c in 3 months. She is seen hat block bench hand in the past 1 year. Hypertension/hyper lipidemia. She is normotensive and she is on Crestor 20 mg daily LDL within recommended range. Chronic kidney disease stage IIIb. Stable at this point and she does not appear to be in volume overload. She follows up with surgical assistant certified on a regular basis. Generalized anxiety disorder/depressio [...] hemoglobin A1c, dietary changes. She is seen hat block bench hand in the past 1 year. Foot care discussed with the patient. Hypertension.Blood pressure reasonably controlled, Not on medications. continue with diet modification. Hyperlipidemia. She is not on pravastatin. It is recommended for her to be on statin medication given that she does have history of type 2 diabetes. Will check lipid panel Chronic kidney disease stage IIIb. She follows up with [facility] nephrologgy and she is not in [...] c-scope Mammogram: Ordered Mammogram HCP SON SHANNON [phone]. MOLST form discussed. Screening blood work reviewed [...] hemoglobin A1c, dietary changes. She is seen hat block bench hand in the past 1 year. Foot care [...] disease stage IIIb. She follows up with [facility] nephrologgy and she is not in [...] c-scope Mammogram: Ordered Mammogram HCP SON SHANNON [phone]. MOLST form discussed. Screening blood work ordered [...] A1c in 3 months. She is seen hat block bench hand in the past 1 year. Hypertension/hyper lipidemia. She is normotensive and she is on Crestor 20 mg daily LDL within recommended range. Chronic kidney disease stage IIIb. Stable at this point and she does not appear to be in volume overload. She follows up with surgical assistant certified on a regular basis. Generalized anxiety disorder/depressio [...] hemoglobin A1c, dietary changes. She is seen hat block bench hand in the past 1 year. Foot care [...] disease stage IIIb. She follows up with [facility] nephrologgy and she is not in [...] c-scope Mammogram: Ordered Mammogram HCP SON SHANNON [phone]. MOLST form discussed. Screening blood work ordered [...] hemoglobin A1c, dietary changes. She is seen hat block bench hand in the past 1 year. Foot care [...] disease stage IIIb. She follows up with [facility] nephrologgy and she is not in [...] c-scope Mammogram: Ordered Mammogram HCP SON SHANNON [phone]. MOLST form discussed. Screening blood work ordered [...] hemoglobin A1c, dietary changes. She is seen hat block bench hand in the past 1 year. Foot care [...] disease stage IIIb. She follows up with [facility] nephrologgy and she is not in [...] c-scope Mammogram: Ordered Mammogram HCP SON SHANNON [phone]. MOLST form discussed. Screening blood work ordered [...] hemoglobin A1c, dietary changes. She is seen hat block bench hand in the past 1 year. Foot care [...] disease stage IIIb. She follows up with [facility] nephrologgy and she is not in [...] c-scope Mammogram: Ordered Mammogram HCP SON SHANNON [phone]. MOLST form discussed. Screening blood work ordered [...] hemoglobin A1c, dietary changes. She is seen hat block bench hand in the past 1 year. Foot care [...] disease stage IIIb. She follows up with [facility] nephrologgy and she is not in [...] c-scope Mammogram: Ordered Mammogram HCP SON SHANNON [phone]. MOLST form discussed. Screening blood work ordered [...] Test Name Order Date MAMMOGRAM, SCREENING 06/29/2023 [id number] 08/07/2024 Hemoglobin [id number] 08/07/2024 Lipid Panel-[id number] 08/07/2024 Next Appt Details Provider Name:DOREEN ANGELES , 01/08/2025 01:45:00 PM, [address] [place] [address], [place], [address], Insurance Providers Payer Name Payer Address Payer Phone Subscriber Number Group Number Insured Name Patient Relationship to Insured Coverage Start Date Coverage End Date [facility] [address] [place] [address] [id number] Jane Nuñez Self - patient is the insured Medicaid of [facility] [address] [place] [address] [id number] Jane Nuñez Self - patient is the insured Medical (General) History Medical History History ICD Code Anxiety/Depression, sees pro vider at [facility], [place] Neurogenic bladder hyperlipidemia GDM CKD stage III and she follows up with Dr Crystal Christian hypertension NICO Insulin-dependent DM type II Migraine and see Dr Noriega Surgical History Surgery Date(Month/Year) Appendectomy Neck surgery Hospitalization History Reason Date(Month/Year) surgeries
--- OUTSIDE RECORDS SUMMARY | 2024-10-18 14:55 | XMS_ITS | Patient Health Record ---
Author Organization [facility] Address [address] [place] [phone] Care Team Providers Care Chainstitch Pants Outseamer Name Role Phone DOREEN ANGELES Primary Care Provider Iban Hilliard [phone] Allergies Allergen (clinical drug ingredient) Drug/Non Drug [...] Risk Notes Problem Diverticular disease of colon (146365610) Diverticulosis of large intestine without perforation or abscess without bleeding (K57.30) Active confirmed Problem Dysphagia (18071480) Dysphagia (R13.10) Active confirmed Problem 764846266 Screening for colon cancer (Z12.11) Active confirmed Problem [id number] Esophageal dysphagia (R13.19) Active confirmed Plan Of Treatment Pending Test Test Name Order Date XR BARIUM SWALLOW-ESOPHAGUS 02/21/2023 [place] barium swallow 05/12/2023 Future Test Test Name Order Date UPPER GI ENDOSCOPY BALLOOON DILATION OF ESOPH 07/19/2022 COLONOSCOPY 07/19/2022 Insurance Providers Payer Name Payer Address Payer Phone Subscriber Number Group Number Insured Name Patient Relationship to Insured Coverage Start Date Coverage End Date [facility] [address] [address] [place] [address] [phone] [id number] AURELIA GARCIA Self - patient is the insured Medical (General) History Medical History History ICD Code IDDM CKD STAGE III--sees Dr. Christian Reports a negative colonoscopy at age 51 Denies [place],CVA,Lung disease Migraines Hyperlipidemia Kidney stones Uterine fibroids [...]
--- OUTSIDE RECORDS SUMMARY | 2024-10-18 14:55 | XMS_ITS | Clinical Summary ---
Author Organization [facility] Address [address] [place] [address] Care Team Providers Care Verification Engineer Name Role Phone Unavailable Primary Care Provider Unavailabl e Social History Tobacco Use Types Packs/Day Years Used Date Smoking Tobacco: Never Assessed Sex and Gender Information Value Date Recorded Sex Assigned at Not on file Gender Identity Not on file Sexual Orientation Not on file Plan of Treatment Not on file
--- NOTE | 2024-10-18 14:56 | HM_ITS ---
* Total monitoring time 2 days. * Underlying rhythm is sinus with an average rate of 92/Min. * No significant supraventricular or ventricular ectopy. * No significant tachyarrhythmias, pauses or AV blocks. * No patient markers or diary events. MTDD
--- OUTSIDE RECORDS SUMMARY | 2024-10-18 14:56 | XMS_ITS | Clinical Summary ---
Author Organization [facility] Address [address] [place] [phone] Phone Care Team Providers Care Liquid Chlorine Operator Name Role Phone Diego Dacosta MD Primary Care Provider [phone] Allergies Active Allergy Reactions Criticality Noted Date [...] Only [facility] [address] [place] [address] Dano Lucas MD Stage 3b chronic kidney disease (HCC) 07/19/2024 Orders Only [facility] [address] [place] [phone] Dano Lucas MD Stage 3b chronic kidney [...] Visit [facility] [address] [phone] Dano Lucas MD [address] [phone] Health Maintenance Due Date Last Done Comments [...] Cystatin C 1.51(H) 0.72 - 1.16 mg/L [facility] eGFR by Cystatin C 41(L) >59 mL/min/1.7 3 [facility] 10/07/2024 11:1 4 AM EDT 10/07/2024 Dano Lucas MD LAB BLOOD ORDERABLES Final Result Performing Organization Address City/[facility]/ZIP Co de Phone Number [facility] [address] [place] [phone] * (ABNORMAL) Microscopic Examination (10/07/2024 11:14 AM EDT) WBC, Urine >30(A) 0 - 5 /hpf [facility] RBC, Urine None seen 0 - 2 /hpf [facility] Squamous Epithelial, Urine 0-10 0 - 10 /hpf [facility] Casts None seen None seen /lpf [facility] Bacteria, Urine Many(A) None seen/Few [facility] 10/07/2024 11:1 4 AM EDT 10/07/2024 Dano Lucas MD LAB MICROBIOLOGY - GE NERAL ORDERABLES Final Result [facility] [address] [place] [address] * (ABNORMAL) Iron Panel (Fe, TIBC, TSAT) (10/07/2024 11:14 AM EDT) TIBC 214(L) 250 - 450 ug/dL [facility] UIBC 144 118 - 369 ug/dL [facility] Iron 70 27 - 139 ug/dL [facility] Iron Saturation (TSat) 33 15 - 55 % [facility] Blood specimen (specimen) Venous blood / Unknown 10/07/2024 11:14 AM EDT 10/07/2024 Dano Lucas MD LAB BLOOD ORDERABLES Final Result [facility] [address] [place] [address] * (ABNORMAL) Protein, Total, Random Urine w/Creatinine (Protein/Creat Ratio) (10/07/2024 11:14 AM EDT) Creatinine, Ur 85.6 Not Estab. mg/dL [facility] Protein, Ur 24.1 Not Estab. mg/dL [facility] Urine Protein/Creati nine Ratio 282(H) 0 - 200 mg/g creat [facility] Urine specimen (specimen) Urine specimen obtained by clean catch procedure / Unknown 10/07/2024 11:14 AM EDT 10/07/2024 us Dano Lucas MD LAB URINE ORDERABLES Final Result [facility] [address] [place] [address] * Urine Albumin / Creatinine Ratio (10/07/2024 11:14 AM EDT) Albumin, Urine 6.9 Not Estab. ug/mL [facility] Albumin/Creatin ine Ratio 8 0 - 29 mg/g creat [facility] Comment: Normal: 0 - 29 Moderately increased: 30 - 300 Severely increased: >300 Urine specimen (specimen) Urine specimen obtained by clean catch procedure / Unknown 10/07/2024 11:14 AM EDT 10/07/2024 Dano Lucas MD LAB URINE ORDERABLES Final Result [facility] [address] [place] [address] * (ABNORMAL) Vitamin D 25 Hydroxy (10/07/2024 11:14 AM EDT) Vitamin D, 25-OH, Total 23.8(L) 30.0 - 100.0 ng/mL [facility] Comment: Vitamin D deficiency has been defined by the [place] of Medicine and an Endocrine Society practice guideline as a level of serum 25-OH vitamin D less than 20 ng/mL (1,2). The Endocrine Society went on to further define vitamin D insufficiency as a level between 21 and 29 ng/mL (2). 1. IOM ([place] of Medicine). 2010. Dietary reference intakes for [...] LAB BLOOD ORDERABLES Final Result [facility] [address] [place] [address] * (ABNORMAL) Urinalysis with microscopic (10/07/2024 11:14 AM EDT) Specific [place], Urine 1.012 1.005 - 1.030 [facility] pH Urine 6.5 5.0 - 7.5 [facility] Color, Urine Yellow Yellow [facility] Appearance Urine Cloudy(A) Clear [facility] WBC Esterase Urine 3+(A) Negative [facility] Protein, Ur Negative Negative/Tra ce [facility] Glucose, Ur Negative Negative [facility] [phone] Ketones, Urine Negative Negative [facility] [phone] Blood Urine Negative Negative [facility] Bilirubin Urine Negative Negative [facility] [phone] Urobilinogen Urine 0.2 0.2 - 1.0 mg/dL [facility] Nitrite, Urine Negative Negative [facility] Microscopic Examination See below: [facility] Comment:Microscopic was alize cated and was performed. Urine specimen (specimen) Urine specimen obtained by clean catch procedure / Unknown 10/07/2024 11:14 AM EDT 10/07/2024 Dano Lucas MD LAB URINE ORDERABLES Final Result [facility] [address] [place] [address] * CBC and Differential (10/07/2024 11:14 AM EDT) [facility] WBC 8.4 3.4 - 10.8 x10E3/uL [facility] RBC 4.32 3.77 - 5.28 x10E6/uL [facility] Hemoglobin 13.2 11.1 - 15.9 g/dL [facility] Hematocrit 39.4 34.0 - 46.6 % [facility] MCV 91 79 - 97 fL [facility] MCH 30.6 26.6 - 33.0 pg [facility] MCHC 33.5 31.5 - 35.7 g/dL [facility] RDW 13.1 11.7 - 15.4 % [facility] Platelets 261 150 - 450 x10E3/uL [facility] Neutrophils Relative 54 Not Estab. % [facility] Lymphocytes Relative 36 Not Estab. % [facility] Monocytes 6 Not Estab. % [facility] Eosinophils Relative 2 Not Estab. % [facility] Basophils Relative 1 Not Estab. % [facility] Neutrophils Absolute 4.7 1.4 - 7.0 x10E3/uL [facility] Lymphocytes Absolute 3.0 0.7 - 3.1 x10E3/uL [facility] Monocytes Absolute 0.5 0.1 - 0.9 x10E3/uL [facility] Eosinophils Absolute 0.2 0.0 - 0.4 x10E3/uL [facility] Basophils Absolute 0.1 0.0 - 0.2 x10E3/uL [facility] Immature Granulocytes 1 Not Estab. % [facility] Immature Grans (Absolute) 0.0 0.0 - 0.1 x10E3/uL [facility] Blood specimen (specimen) Venous blood / Unknown 10/07/2024 11:14 AM EDT 10/07/2024 Dano Lucas MD LAB BLOOD ORDERABLES Final Result [facility] [address] [place] [address] * Uric Acid (10/07/2024 11:14 AM EDT) Uric Acid 6.5 3.0 - 7.2 mg/dL [facility] Comment:Therapeutic target f or gout patients: <6.0 Blood specimen (specimen) Venous blood / Unknown 10/07/2024 11:14 AM EDT 10/07/2024 Dano Lucas MD LAB BLOOD ORDERABLES Final Result Performing Organization Address City/[facility] Co de Phone Number [facility] [address] [place] [address] * Phosphorus (10/07/2024 11:14 AM EDT) Phosphorus 3.3 3.0 - 4.3 mg/dL [facility] Blood specimen (specimen) Venous blood / Unknown 10/07/2024 11:14 AM EDT 10/07/2024 Dano Lucas MD LAB BLOOD ORDERABLES Final Result [facility] [address] [place] [address] * PTH, Intact (10/07/2024 11:14 AM EDT) Pathologist [facility] PTH 49 15 - 65 pg/mL [facility] Blood specimen (specimen) Venous blood / Unknown 10/07/2024 11:14 AM EDT 10/07/2024 Dano Lucas MD LAB BLOOD ORDERABLES Final Result [facility] [address] [place] [address] * Magnesium (10/07/2024 11:14 AM EDT) Pathologist [facility] Magnesium 1.8 1.6 - 2.3 mg/dL [facility] Blood specimen (specimen) Venous blood / Unknown 10/07/2024 11:14 AM EDT 10/07/2024 Dano Lucas MD LAB BLOOD ORDERABLES Final Result Performing Organization Address City/[facility]/ZIP Co de Phone Number [facility] [address] [place] [address] * (ABNORMAL) Hemoglobin A1c (10/07/2024 11:14 AM EDT) Pathologist [facility] Hemoglobin A1C 8.2(H) 4.8 - 5.6 % [facility] Comment: Prediabetes: 5.7 - 6.4 Diabetes: >6.4 Glycemic control for adults with diabetes: <7.0 Blood specimen (specimen) Venous blood / Unknown 10/07/2024 11:14 AM EDT 10/07/2024 us Dano Lucas MD LAB BLOOD ORDERABLES Final Result [facility] [address] [place] [address] * (ABNORMAL) Ferritin (10/07/2024 11:14 AM EDT) Pathologist [facility] Ferritin 213(H) 15 - 150 ng/mL [facility] Blood specimen (specimen) Venous blood / Unknown 10/07/2024 11:14 AM EDT 10/07/2024 us Dano Lucas MD LAB BLOOD ORDERABLES Final Result [facility] [address] [place] [address] * (ABNORMAL) Basic Metabolic Panel (10/07/2024 11:14 AM EDT) Pathologist [facility] Glucose 127(H) 70 - 99 mg/dL [facility] BUN 10 8 - 27 mg/dL [facility] Creatinine 1.46(H) 0.57 - 1.00 mg/dL [facility] eGFR CKD-EPI CR 2020 39(L) >59 mL/min/1.7 3 [facility] BUN/Creatinine Ratio 7(L) 12 - 28 [facility] Sodium 142 134 - 144 mmol/L [facility] Potassium 4.0 3.5 - 5.2 mmol/L [facility] Chloride 108(H) 96 - 106 mmol/L [facility] Bicarbonate (CO2) 17(L) 20 - 29 mmol/L [facility] Calcium 9.1 8.7 - 10.3 mg/dL [facility] Blood specimen (specimen) Venous blood / Unknown 10/07/2024 11:14 AM EDT 10/07/2024 Dano Lucas MD LAB BLOOD ORDERABLES Final Result [facility] [address] [place] [address] from Last 3 Months [place] [facility] Medicare Care Teams Liquid Chlorine Operator Relationship Specialty Start Date End Date Diego Dacosta MD [address] [place] [address] PCP - General Internal Medicine 12/06/21
== END ==
LOC: HO.CARD 14:52
PROVIDERS: Visit Provider Registered Nurse
DX: R55 Syncope and collapse (principal)
CPT/HCPCS: 93225

== ENCOUNTER → 2024-10-18 14:56 | Outpatient (BNV) | payer OTHER, MEDICAID, SELFPAY | PROVIDERS: Visit Provider Internal Medicine | DX: R00.0 Tachycardia, unspecified (principal) | CPT/HCPCS: 93227 ==

== ENCOUNTER 2025-03-10 13:39 | Outpatient (AMB) | payer OTHER, MEDICAID, SELFPAY ==
--- NOTE | 2025-03-10 13:41 | MHC.OFFVIS ---
Intake Visit Reasons: 3 months f/u Allergies aspirin Allergy (Intermediate, Verified 03/10/25 13:46) rash gabapentin Allergy (Intermediate, Verified 03/10/25 13:46) rash oxycodone (Percodan) Allergy (Intermediate, Verified 03/10/25 13:46) rash sulfur Allergy (Unknown, Verified 03/10/25 13:46) rash Medication List - Last Reconciled 03/10/25 by Heidi Akbar, EULALIA amitriptyline 150 mg PO BEDTIME 90 days cyclobenzaprine 5 mg PO BID PRN duloxetine 60 mg PO DAILY galcanezumab-gnlm (Emgality Pen) 120 mg subcut .once a month 30 days insulin lispro (Humalog KwikPen (U-100) Insulin) 1 sliding scale dose subcut USEASDIRECTD magnesium oxide 300 mg PO DAILY ondansetron HCl 4 mg PO DAILY sumatriptan succinate 100 mg PO Q2-4H PRN tirzepatide (Mounjaro) 2.5 mg subcut QWEEK topiramate (Topamax) 100 mg PO BID zolpidem (Ambien) 10 mg PO BEDTIME PRN 30 days HPI Comments Details: She was doing okay. She started Emgality in 11/2024 and migraines were better. She was still getting some headaches, but not like before. They were not as frequent or severe. Headaches were happening about 2-3x/week, previously happening almost every day. Triggers included stress and she was working on stress management. She was trying to downsize as she wanted to move to [place] within the next few years. She was going back to visit family there next month. No syncopal episodes. She fell down few stairs after losing footing a few days before Thanksgi. No LOC. No increased headaches or dizziness. No nausea or vomiting. Sleep was okay with medication. Previously, headaches were less severe with increased dose of verapamil, but happening almost every day. Pain could be pressure behind eyes, to back of head, or frontal with photophobia, sonophobia, and nausea. Triggers include not eating at regular times. She was also having some blurred vision and occasional dizziness with headaches. Balance was off at times. No episodes of syncope. No palpitations. She was sleeping about 4-5 hours with medication. If she heard a noise, it would wake her and she had trouble falling back to sleep. Headaches were happening about 3x/week with verapamil 40mg twice a day. Fell down stairs and hit head on banister in 07/2024. She does not remember falling or how fall happened. Her son helped her get up. She was a little confused and tired afterward and slept for 3-4 hours. She may have bit her tongue as her tongue hurt. No incontinence. She did not go to ER. No increase in headaches. No nausea or vomiting. No change in vision. She also fell 07/30/2024 trying to avoid puddle while crossing street and landed on left side, needed help getting up. She saw PCP who ordered XRs. She noticed she has been stuttering more and losing train of thought more since the fall. She sometimes has heart palpitations. Lot of anxiety and stress as her house is under foreclosure. Her younger sister is looking at apartments for her in [place].? Previously, headaches were almost every day, usually to left side of head, starting in back and going up behind left eye. Pain can either be dull, pressure, or throbbing-type, lasting from 45-minutes to hours. Associated with photophobia, sonophobia, nausea, and vomiting. Does not sleep well at night. Feels irritable. Lot of anxiety, cannot relax. Feels like she may cry at any time and does not like to leave house. Was given few lorazepam by PCP which help. Cold and heat may trigger headaches. In the past, every day headaches short head pains for 3 minutes moving to various spots in the scalp over small area, most commonly right occipital. Sleep is broken, gets up to use bathroom every 60-90 minutes. Dry mouth from medications. Has had migraine-type headaches since age 16 that are stress-induced and may occur once a week. Most nights she does not get restful sleep. 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 Has been on propranolol 80mg day for 2 years without significant improvement in headache. Also has stage III chronic kidney disease. [facility] Medical History (Updated 10/15/24 @ 12:39 by Heidi Akbar CNP) Migraines Hearing loss in right ear Chronic daily headache Kidney stones Carpal tunnel syndrome, bilateral upper limbs Status migrainosus Anxiety disorder Tension headache Fibromyalgia Insomnia Acoustic neuroma Depression with anxiety Chronic kidney disease, stage 3 High cholesterol Morbid obesity Diabetes Calcaneal spur of both feet Osteoarthritis of feet, bilateral Surgical History (Updated 10/14/24 @ 19:18 by Neris Alegria MA) H/O partial thyroidectomy History of section History of appendectomy Family History (Updated 10/14/24 @ 19:18 by Neris Alegria MA) Mother Osteoarthritis Rheumatoid arthritis Headache Social History Household Members: Children and Other Household Members Other:: grandson Alcohol intake: never Patient Tobacco Use Status: Never used Tobacco Current occupational status: employed Current occupation: [employer] Review of Systems Const Denies chills, Denies daytime sleepiness, Reports difficulty sleeping, Denies fatigue, Denies fever(s), Denies frequent falls, Reports headache(s), Denies increased appetite, Denies poor appetite, Denies snoring, Denies weakness, Denies weight gain and Denies weight loss Eyes Reports blurry vision ENT Denies vertigo, Reports dizziness, Reports headache(s) and Denies neck pain Card Denies chest pain at rest, Denies chest pain with activity, Denies syncope, Denies leg edema, Denies palpitations, Denies dyspnea and Denies dyspnea on exertion Resp Denies cough, Denies dyspnea, Denies dyspnea on exertion and Denies snoring GI Denies abdominal pain, Denies constipation, Denies heartburn, Denies diarrhea and Reports nausea Denies urinary frequency, Denies urinary incontinence and Denies urinary urgency Musc Denies abnormal gait, Denies back pain, Reports myalgias, Denies arthralgias, Denies neck pain, Denies numbness, Denies stiffness and Denies tingling Neuro Denies abnormal gait, Denies vertigo, Reports dizziness, Denies syncope, Denies frequent falls, Reports headache(s), Denies lack of coordination, Denies memory loss, Denies numbness, Denies Other visual disturbances, Denies restless legs, Denies seizure-like activity, Denies tingling, Denies paresthesias, Denies tremor(s) and Denies weakness Psych Reports anxiety, Denies depression, Denies memory loss, Denies visual hallucinations, Denies hallucinations and Reports other (stress) Endo Denies fatigue and Denies palpitations Physical Exam Const Other: General Appearance:? normal, in no acute distress. Heart:? S1, S2 normal, no murmurs. Lungs:? clear anteriorly and posteriorly. Musculoskeletal:? normal. Extremities:? no edema. Psych:? alert, oriented, cognitive function intact, cooperative with exam. Neuro Other: Abnormal Neurological Findings:?none.? Mental Status: alert and oriented X 3. Normal attention, orientation, memory, and affect. Cranial Nerves: Pupils are equal, round, and reactive to light. External ocular muscles are intact. Visual peralta are full, no ptosis. Face is symmetrical, no facial weakness or droop. Facial sensations are normal. Tongue protrudes in midline. Palate elevates symmetrically. Shoulder shrugging is normal Motor Examination: Normal muscle tone, bulk and strength. No atrophy or fasciculations. No drift of the extended upper extremities. DTR 2+. Plantars are flexor. Straight Leg Raisin degrees. Sensory Exam: Normal light touch, temperature, pinprick, vibration, and joint-position sensations. Rhomberg sign is absent. Coordination: No ataxia. No titubation. Zmqqpl-jl-sdny, dtpc-oxom-tjdg test, and rapid alternating movements were normal. Gait Exam: Within normal limits. Cerebellar Signs: Rupiiq-rp-qdnd and inos-fe-yloa is normal. No dysdiadochokinesia. Extrapyramidal System: No tremor, rigidity with normal facial expressions. No bradykinesia. No bradyphrenia. Normal arm swing and posture. No propulsion or retropulsion. Speech: Normal. No dysphasia or dysarthria. Results Reviewed Results Reviewed: [address] [address] Holter Monitor Report Signed Patient: Jane Nuñez MR#: [id number] : 1955 Acct:[id number] Age/Sex: 69 / F ADM Date: 10/18/24 Loc: HO.CARD Attending Dr: Heidi Akbar CNP Ordering Physician: Heidi Akbar CNP Date of Service: 10/18/24 Procedure(s): ECG holter monitor 48 hour Accession Number(s): cc: Heidi Akbar CNP~ Total monitoring time 2 days. Underlying rhythm is sinus with an average rate of 92/Min. No significant supraventricular or ventricular ectopy. No significant tachyarrhythmias, pauses or AV blocks. No patient markers or diary events. Dictated By: Demetri Carmichael MD Signed By: <Electronically signed by Demetri Carmichael MD> 10/30/24 0915 -- 09/13/2024 EEG: WNL CT Head at [facility] [place] 10/07/2024: No acute intracranial abnormality. Assessment & Plan Assessment & Plan (1) Migraines: Code(s): G43.909 - Migraine, unspecified, not intractable, without status migrainosus Category: Medical Qualifiers: Migraine type: unspecified Status migrainosus presence: without status migrainosus Intractability: not intractable Qualified Code(s): G43.909 - Migraine, unspecified, not intractable, without status migrainosus Plan: Continue Emgality 120mg/mL subcutaneous monthly. Continue topiramate 100mg 1 tablet twice a day. Continue sumatriptan 100mg 1 tablet as needed for migraine. Continue ondansetron 4mg 1 tablet as needed for nausea/vomiting #10 for 30 days. Follow up in 6 months or sooner as needed. (2) Tension headache: Code(s): G44.209 - Tension-type headache, unspecified, not intractable Category: Medical Plan: Continue amiriptyline 150mg 1 tablet at bedtime. Continue cyclobenzaprine 5mg 1 tablet twice a day as needed for muscle spasm/pain. (3) Insomnia: Code(s): G47.00 - Insomnia, unspecified Category: Medical Qualifiers: Insomnia type: unspecified Qualified Code(s): G47.00 - Insomnia, unspecified Plan: Continue zolpidem 10mg 1 tablet at bedtime as needed for sleep #30 for 30 days. (4) Syncope: Code(s): R55 - Syncope and collapse Category: Medical Qualifiers: Syncope type: unspecified Qualified Code(s): R55 - Syncope and collapse Plan: Holter results reviewed. Plan Meds tried: Propranolol, topiramate, amitriptyline, cyclobenzaprine, verapamil Medications: Changed From topiramate (Topamax) 100 mg PO BID To topiramate (Topamax) 100 mg PO BID 180 tabs 1RF 90 days Refilled galcanezumab-gnlm (Emgality Pen) 120 mg subcut .once a month 1 mL 5RF 30 days cyclobenzaprine 5 mg PO BID PRN 60 tabs 2RF for pain zolpidem (Ambien) 10 mg PO BEDTIME PRN 30 tabs 5RF Insomnia 30 days amitriptyline 150 mg PO BEDTIME 90 tabs 1RF 90 days Coding Level of Care Code Est Pt Level 4 (24659) Diagnoses Migraine without status migrainosus, not intractable, unspecified migraine type G43.909 Migraine type: unspecified Status migrainosus presence: without status migrainosus Intractability: not intractable Tension headache G44.209 Insomnia, unspecified type G47.00 Insomnia type: unspecified Syncope, unspecified syncope type R55 Syncope type: unspecified
--- OUTSIDE RECORDS SUMMARY | 2025-03-10 17:14 | XMS_ITS | Clinical Summary ---
Author Organization [facility] Address [address] [place] [address] Care Team Providers Care Nursing Consultant Name Role Phone Unavailable Primary Care Provider Unavailabl e Social History Tobacco Use Types Packs/Day Years Used Date Smoking Tobacco: Never Assessed Sex and Gender Information Value Date Recorded Sex Assigned at Not on file Gender Identity Not on file Sexual Orientation Not on file Plan of Treatment Not on file
== END 2025-03-10 16:50 | disposition home or self-care (01) ==
LOC: HO.HSM 13:40
PROVIDERS: Visit Provider Registered Nurse
DX: G43.909 Migraine, unspecified, not intractable, without status migrainosus (principal); G44.209 Tension-type headache, unspecified, not intractable; G47.00 Insomnia, unspecified; R55 Syncope and collapse
CPT/HCPCS: 99214